=== PATIENT | female | born 1955 | race Caucasian/White ===

== ENCOUNTER → 2022-03-18 14:27 | Outpatient (BNVA) | payer MEDICARE, OTHER, SELFPAY | PROVIDERS: PCP Internal Medicine; Visit Provider Urology | DX: R31.29 Other microscopic hematuria (principal) | CPT/HCPCS: 99202 ==

== ENCOUNTER 2022-04-24 14:15 | Outpatient (REF) | payer MEDICARE, OTHER, SELFPAY ==
--- NOTE | ~2022-04-24 | US_ITS ---
EXAMINATION: US RETROPERITONEAL LIMITED (RENAL ONLY) CLINICAL INFORMATION: Other microscopic hematuria. COMPARISON: None TECHNIQUE: Real-time imaging of the kidneys. FINDINGS: RIGHT KIDNEY: 11.6 x 5.0 x 6.3 cm (SAG x AP x TRV). The kidney is normal in size, contour, and echogenicity. Renal cortical thickness is normal. No hydronephrosis. Benign-appearing renal cysts measuring up to 1.9 cm, no imaging follow-up recommended. 4 mm nonobstructing lower pole renal stone and 5 mm nonobstructing mid pole renal stone. LEFT KIDNEY: 11.6 x 6.6 x 6.8 cm (SAG x AP x TRV). The kidney is normal in size, contour, and echogenicity. Renal cortical thickness is normal. No hydronephrosis. Benign-appearing renal cysts measuring up to 4.5 cm, no imaging follow-up recommended. 3 mm obstructing lower pole renal stone. US/US renal BI IMPRESSION: Bilateral nonobstructive renal stones measuring up to 5 mm on the right and measuring 3 mm on the left.
== END 2022-04-24 14:16 | disposition home or self-care (01) ==
LOC: HO.US 14:15
PROVIDERS: Visit Provider Urology
DX: R31.29 Other microscopic hematuria (principal)
CPT/HCPCS: 76775

== ENCOUNTER → 2022-05-01 10:35 | Outpatient (BNVA) | payer MEDICARE, OTHER, SELFPAY | PROVIDERS: PCP Internal Medicine; Visit Provider Urology | DX: N20.0 Calculus of kidney (principal); R31.29 Other microscopic hematuria | CPT/HCPCS: Q3014 ==

== ENCOUNTER 2023-04-07 14:15 | Outpatient (REF) | payer MEDICARE, OTHER, SELFPAY ==
--- NOTE | ~2023-04-07 | US_ITS ---
EXAMINATION: US RETROPERITONEAL LIMITED (RENAL ONLY) CLINICAL INFORMATION: Calculus of kidney. COMPARISON: Renal ultrasound 04/24/2022. TECHNIQUE: Real-time imaging of the kidneys. FINDINGS: RIGHT KIDNEY: 11.6 x 4.4 x 5.2 cm (SAG x AP x TRV). The kidney is normal in size, contour, and echogenicity. Renal cortical thickness is normal. Multiple benign Bosniak class I renal cysts are noted, the largest measuring 1.9 cm which require no additional imaging or followup. No solid renal masses are seen. There is a midpole 6 mm nonobstructing calculus present. There is mild pelvic fullness but no hydronephrosis. LEFT KIDNEY: 10.3 x 5.3 x 5.9 cm (SAG x AP x TRV). The kidney is normal in size, contour, and echogenicity. Renal cortical thickness is normal. No hydronephrosis. Multiple benign Bosniak class I renal cysts are noted, the largest measuring 4.0 cm which require no additional imaging or followup. No solid renal masses are seen. Incidental note made of hepatic steatosis. US/US renal BI IMPRESSION: 1. Nonobstructing 6 mm right renal calculus. 2. Bilateral benign Bosniak class I renal cysts which require no additional imaging or followup. 3. Incidentally noted hepatic steatosis.
== END 2023-04-07 14:16 | disposition home or self-care (01) ==
LOC: HO.US 14:15
PROVIDERS: PCP Internal Medicine; Visit Provider Urology
DX: N20.0 Calculus of kidney (principal)
CPT/HCPCS: 76775

== ENCOUNTER 2024-02-17 15:33 | Outpatient (AMB) | payer MEDICARE, OTHER, SELFPAY ==
--- NOTE | 2024-02-17 15:34 | A.OFFPC_ITS ---
Vital Signs 02/17/24 15:53 Height 5 ft 3 in Weight 188 lb BMI 33.3 BP 116/62 Blood Pressure Location Lt brachial Position Left Lateral Respiration 16 Pulse 59 Pulse Source Pulse Oximeter Temp 98.1 F Temp Source Oral Pulse Oximetry (%) 96 Oxygen Delivery Method Room Air Intake Visit Reasons: EST CARE Intake Note: New patient visit Allergies penicillin G Allergy (Severe, Verified 02/17/24 15:42) shock tizanidine Allergy (Mild, Verified 02/17/24 15:42) unknown amoxicillin [From Augmentin] Allergy (Unknown, Verified 02/17/24 15:42) Unknown ciprofloxacin Allergy (Unknown, Verified 02/17/24 15:42) Unknown clarithromycin [From Biaxin] Allergy (Unknown, Verified 02/17/24 15:42) Unknown clavulanic acid [From Augmentin] Allergy (Unknown, Verified 02/17/24 15:42) Unknown erythromycin base Allergy (Unknown, Verified 02/17/24 15:42) Unknown polyethylene glycol 3350 Allergy (Unknown, Verified 02/17/24 15:42) Unknown sulfadiazine Allergy (Unknown, Verified 02/17/24 15:42) Unknown tetracycline Allergy (Unknown, Verified 02/17/24 15:42) Unknown tramadol Allergy (Unknown, Verified 02/17/24 15:42) vomit venlafaxine [From Effexor] Allergy (Unknown, Verified 02/17/24 15:42) Unknown adhesive bandaid Allergy (Unknown, Uncoded 02/17/24 15:42) Unknown chapstick Allergy (Unknown, Uncoded 02/17/24 15:42) unknown tania Allergy (Unknown, Uncoded 02/17/24 15:42) Unknown Medication List - Last Reconciled 02/17/24 by Aditi Nguyen MD albuterol sulfate 90 mcg/actuation 2 puffs inhalation Q6H PRN cyclobenzaprine 5 - 10 mg PO BEDTIME PRN fluticasone propionate 50 mcg/actuation 2 sprays intranasal DAILY gabapentin 300 mg PO BID leflunomide 20 mg PO DAILY levothyroxine 25 mcg PO DAILY loratadine-pseudoephedrine 5-120 mg ER (Alavert D-12 Allergy-Sinus) 1 tab PO Q12H magnesium citrate,mag oxide mg PO metolazone 2.5 mg PO Q OTHER DAY oxycodone 5 mg PO Q6H PRN potassium chloride ER 20 meq three times a day orally daily; Tobacco use date assessed: 02/17/24 Fall risk assessment: No Falls in past year Last assessed Fall Risk: 02/17/24 Dental Screening Dental Screen Date: 02/17/24 Did you have a dental visit in the last 12 months?: No Did you have a dental problem in the last 6 months where you did not have access to dental care?: No Was dental information given to patient?: Patient has dentist HPI HPI Comments History of Present Illness Details The patient is a 69 year old female with a past medical history of chronic pain, DDD spine, RA, prediabetes/diabetes, depression/grief, hypertension, [facility] Chronic pain: Maintained on chronic opioid therapy. History of spinal surgery. Follows rheumatology CV: On metolozane, propranolol. Intolerant of multiple medications Hypothyroid-on levothyroxine Non compliant with preventive care [facility] Medical History (Updated 02/25/24 @ 09:22 by Aditi Nguyen MD) Anxiety High cholesterol OA (osteoarthritis) Mucoepidermoid carcinoma Depression Thyroid nodule Diabetes mellitus Rheumatoid arthritis Gout Arthritis Allergies Family History (Updated 02/17/24 @ 16:00 by Anastasiya Francisco CMA) Mother HTN (hypertension) Social History (Updated 02/17/24 @ 15:52 by Anastasiya Francisco CMA) Patient Tobacco Use Status: Former Tobacco user Cigarette Packs Per Day: 1 Years Smoked: 25 e-Cigarette/Vaping Use: Never Used Second Hand Smoke Exposure: No service: Yes Current occupational status: retired Cognitive needs: No Hearing needs: No Vision needs: No Questionnaire PHQ-9 Over the last 2 weeks, how often have you been bothered by any of the following problems? 1. Little interest or pleasure in doing things: several days 2. Feeling down, depressed, or hopeless: nearly every day 3. Trouble falling or staying asleep, or sleeping too much: more than half the days 4. Feeling tired or having little energy: several days 5. Poor appetite or overeating: several days 6. Feeling bad about yourself - or that you are a failure or have let yourself or your family down: not at all 7. Trouble concentrating on things, such as reading the newspaper or watching television: not at all 8. Moving or speaking so slowly that other people could have noticed. Or the opposite - being so fidgety or restless that you have been moving around a lot more than usual: not at all 9. Thoughts that you would be better off or of hurting yourself in some way: not at all Total score: 8 Depression Screening Interpretation: Positive Depression Screening Done: Yes [id number] - PHQ-9 Billing: Yes Source: Developed by Drs. Min De La Rosa, Sharlene Burris, Mau Morales and colleagues, with an educational cl from [employer]. Thrive Questionnaire Date Thrive assessed: 02/17/24 I am a: Patient What is your living situation today?: I have a steady place to live Within the past 12 months, did the food you bought not last and you didn't have the money to get more?: Never true Within the past 12 months, did you worry whether your food would run out before you got money to buy more?: Never true Do you have trouble paying for medicines?: No Do you have trouble getting transportation to medical appointments?: No Do you have trouble paying your heating and electricity bill?: No Do you have trouble taking care of your child, family member or friend?: No Do you have trouble with day-to-day activities such as bathing, preparing meals, shopping, managing finances, etc.?: No Are you currently unemployed and looking for a job?: No Are you interested in more education?: No Please select the resources that you would like help with: None Currently or been in a relationship where the following occur: no concerns reported THRIVE Score: 0 AUDIT C Alcohol Use Questionnaire (AUDIT-C) 1. How often do you have a drink containing alcohol?: Monthly or less 2. How many drinks containing alcohol do you have on a typical day when you are drinking?: 3 or 4 3. How often do you have six or more drinks on one occasion?: Less than monthly Total Score: 3 TIMO-7 AMB Questionnaire TIMO-7 Date TIMO - 7 assessed: 02/17/24 Feeling nervous, anxious, or on edge: 0 = Not at all Not being able to stop or control worryin = Several days Worrying too much about different things: 1 = Several days Trouble relaxin = Several days Being so restless that it is hard to sit still: 2 = More than half the days Becoming easily annoyed or irritable: 0 = Not at all Feeling afraid as if something awful might happen: 0 = Not at all Total TIMO-7 score (0-4 normal; 5-9 mild; 10-14 moderate; 15-21 severe): 5 Source: Developed by Drs. Min De La Rosa, Sharlene Burris, Mau Morales and colleagues, with an educational cl from [employer]. TIMO-7 Assessment Billing TIMO-7 Assessment Tool: TIMO-7 Assessment 06758 ACT Questionnaire In the past 4 weeks, how much of the time did your asthma keep you from getting as much done at work, school or at home?: None of the time During the past 4 weeks, how often have you had shortness of breath?: 1-2 times a week (Once in the last 4 weeks) During the past 4 weeks, how often did your asthma symptoms wake you up at night or earlier than usual in the morning?: Not at all During the past 4 weeks, how often have you had to use your rescue inhaler or nebulizer medication?: 1-2 times a week How would you rate your asthma control during the past 4 weeks?: Completely controlled ACT Interpretation: Positive Score: 21 Review of Systems Const Details: ROS CONSTITUTIONAL: Denies weight loss, fever and chills. HEENT: Sinus congestion RESPIRATORY: Denies SOB and cough. CV: Denies palpitations and CP GI: Denies abdominal pain, nausea, vomiting and diarrhea. : Denies dysuria and urinary frequency. MSK: Denies new myalgia and joint pain. SKIN: Denies rash and pruritus. NEUROLOGICAL: Denies headache PSYCHIATRIC: Denies recent changes in mood. Physical exam (Primary Care) Vital Signs: Last Vital Signs Temp 98.1 F 02/17/24 15:53 Pulse 59 02/17/24 15:53 Resp 16 02/17/24 15:53 BP 116/62 02/17/24 15:53 Pulse Ox 96 02/17/24 15:53 Oxygen Delivery Method Room Air 02/17/24 15:53 PHYSICAL EXAM: GENERAL: Alert and oriented x 3. NAD EYES: EOMI. Anicteric. HENT: Moist mucous membranes. No scleral icterus. No cervical lymphadenopathy. LUNGS: Clear to auscultation bilaterally. CARDIOVASCULAR: Regular rate and rhythm. No murmur. No JVD. ABDOMEN: Soft, non-tender +bs EXTREMITIES: No edema. Non-tender. SKIN: No rashes or lesions. Warm. NEUROLOGIC: No focal neurological deficits. CN II-XII grossly intact PSYCHIATRIC: Cooperative. Appropriate mood and affect BMI result Body Mass Index 33.3 Tobacco/Smoking Status: Tobacco use Status Tobacco use date assessed 02/17/24 02/17/24 16:01 Patient Tobacco Use Status Former Tobacco user 02/17/24 16:01 e-Cigarette/Vaping Use Never Used 02/17/24 16:01 PHQ-9: PHQ-9 Score PHQ-9: Total score 8 02/17/24 16:03 Depression Screening Interpretation: Positive Thrive Assessment: Date of Thrive Assessment Date Thrive assessed 02/17/24 02/17/24 16:03 Currently or been in a relationship where the following occur: no concerns reported Assessment and Plan Assessment & Plan (1) Arthritis: Comment: continue chronic opioid therapy. continue f/up rheumatology Code(s): M19.90 - Unspecified osteoarthritis, unspecified site (2) Rheumatoid arthritis: Code(s): M06.9 - Rheumatoid arthritis, unspecified Qualifiers: Rheumatoid arthritis location: multiple sites Rheumatoid factor presence: with rheumatoid factor Qualified Code(s): M05.79 - Rheumatoid arthritis with rheumatoid factor of multiple sites without organ or systems involvement (3) Diabetes mellitus: Code(s): E11.9 - Type 2 diabetes mellitus without complications Qualifiers: Diabetes mellitus type: type 2 Diabetes mellitus fci insulin use: without supervisor intermediates use Diabetes mellitus complication status: with neurologic complications Diabetes mellitus complication detail: with polyneuropathy Qualified Code(s): E11.42 - Type 2 diabetes mellitus with diabetic polyneuropathy (4) Thyroid nodule: Code(s): E04.1 - Nontoxic single thyroid nodule (5) Depression: Code(s): F32.A - Depression, unspecified (6) OA (osteoarthritis): Code(s): M19.90 - Unspecified osteoarthritis, unspecified site (7) High cholesterol: Code(s): E78.00 - Pure hypercholesterolemia, unspecified (8) Anxiety: Code(s): F41.9 - Anxiety disorder, unspecified (9) Nephrolithiasis: Code(s): N20.0 - Calculus of kidney Medications: New cyclobenzaprine 5 - 10 mg PO BEDTIME PRN albuterol sulfate 90 mcg/actuation 2 puffs inhalation Q6H PRN fluticasone propionate 50 mcg/actuation 2 sprays intranasal DAILY mupirocin 2% 1 appl topical BID 22 grams 3RF oxycodone Partial Fill upon patient request. 10 mg PO Q4H PRN 168 tabs 0RF pain 28 days Coding Level of Care Code Est Pt Level 4 (37267) Complex EM visit Add On G2211 Diagnoses Arthritis M19.90 Rheumatoid arthritis involving multiple sites with positive rheumatoid factor M05.79 Rheumatoid arthritis location: multiple sites Rheumatoid factor presence: with rheumatoid factor Type 2 diabetes mellitus with diabetic polyneuropathy, without long-term current use of insulin E11.42 Diabetes mellitus type: type 2 Diabetes mellitus fci insulin use: without supervisor intermediates use Diabetes mellitus complication status: with neurologic complications Diabetes mellitus complication detail: with polyneuropathy Thyroid nodule E04.1 Depression F32.A OA (osteoarthritis) M19.90 High cholesterol E78.00 Anxiety F41.9 Nephrolithiasis N20.0 Additional Codes TIMO-7 Assessment Billing - TIMO-7 Assessment Tool: TIMO-7 Assessment 17464 ([id number])
[2024-02-17 15:53] VITALS: BP 116/62; PULSE 59; RESP 16; TEMP 36.7; O2SAT 96; BMI 33.3
== END 2024-02-17 16:25 | disposition home or self-care (01) ==
LOC: HO.HMGFM 15:33
PROVIDERS: PCP Internal Medicine; Visit Provider Internal Medicine
DX: M19.90 Unspecified osteoarthritis, unspecified site (principal); M05.79 Rheumatoid arthritis with rheumatoid factor of multiple sites without organ or systems involvement; E11.42 Type 2 diabetes mellitus with diabetic polyneuropathy; E04.1 Nontoxic single thyroid nodule; F32.A Depression, unspecified; E78.00 Pure hypercholesterolemia, unspecified; F41.9 Anxiety disorder, unspecified; N20.0 Calculus of kidney
CPT/HCPCS: 99214; G2211

== ENCOUNTER 2024-05-03 15:34 | Outpatient (AMB) | payer MEDICARE, OTHER, SELFPAY ==
--- NOTE | 2024-05-03 15:42 | A.OFFPC_ITS ---
Vital Signs 05/03/24 15:44 Height 5 ft 3 in Weight 184 lb BMI 32.6 BP 133/74 Blood Pressure Location Lt brachial Position Sitting Pulse 84 Pulse Source Pulse Oximeter Temp 98.4 F Temp Source Temporal Artery Scan Pulse Oximetry (%) 94 Oxygen Delivery Method Room Air Intake Visit Reasons: SwellingNeck Intake Note: Patient reports the right side of her neck feels swollen on thursday morning. Patient reports feeling pain to the touch. Academic Physician Required: No Accompanied by: Self / Same As Patient Allergies penicillin G Allergy (Severe, Verified 05/03/24 15:47) shock tizanidine Allergy (Mild, Verified 05/03/24 15:47) unknown amoxicillin [From Augmentin] Allergy (Unknown, Verified 05/03/24 15:47) Unknown ciprofloxacin Allergy (Unknown, Verified 05/03/24 15:47) Unknown clarithromycin [From Biaxin] Allergy (Unknown, Verified 05/03/24 15:47) Unknown clavulanic acid [From Augmentin] Allergy (Unknown, Verified 05/03/24 15:47) Unknown erythromycin base Allergy (Unknown, Verified 05/03/24 15:47) Unknown polyethylene glycol 3350 Allergy (Unknown, Verified 05/03/24 15:47) Unknown sulfadiazine Allergy (Unknown, Verified 05/03/24 15:47) Unknown tetracycline Allergy (Unknown, Verified 05/03/24 15:47) Unknown tramadol Allergy (Unknown, Verified 05/03/24 15:47) vomit venlafaxine [From Effexor] Allergy (Unknown, Verified 05/03/24 15:47) Unknown adhesive bandaid Allergy (Unknown, Uncoded 05/03/24 15:47) Unknown chapstick Allergy (Unknown, Uncoded 05/03/24 15:47) unknown tania Allergy (Unknown, Uncoded 05/03/24 15:47) Unknown Tobacco use date assessed: 02/17/24 Dental Screening Dental Screen Date: 02/17/24 HPI HPI Comments History of Present Illness Details The patient is a 69 year old female with a past medical history of chronic pain, DDD spine, RA, prediabetes/diabetes, depression/grief, hypertensi on, hypothyroid presenting for neck swelling Over the past 2-3 week she has noticed enlargement and discomfort of the lymph nodes in her neck, particularly in the right upper neck. She had issues in the past with abnormality of the parotid. She denies accompanying sick symptoms. Fatigue is somewhat worse than baseline Chronic pain: Maintained on chronic opioid therapy. History of spinal surgery. Follows rheumatology CV: On metolozane, propranolol. Intolerant of multiple medications Hypothyroid-on levothyroxine Non compliant with preventive care ROS see HPI PHYSICAL EXAM: GENERAL: Alert and oriented x 3. NAD EYES: EOMI. Anicteric. HENT: Moist mucous membranes. Enlarged tender ant cervical, submand nodes LUNGS: Clear to auscultation bilaterally. CARDIOVASCULAR: Regular rate and rhythm. No murmur. No JVD. ABDOMEN: Soft, non-tender +bs EXTREMITIES: No edema. Non-tender. SKIN: No rashes or lesions. Warm. NEUROLOGIC: No focal neurological deficits. CN II-XII grossly intact PSYCHIATRIC: Cooperative. Appropriate mood and affect [facility] Medical History (Updated 05/08/24 @ 10:29 by Aditi Nguyen MD) Anxiety High cholesterol OA (osteoarthritis) Mucoepidermoid carcinoma Depression Thyroid nodule Diabetes mellitus Rheumatoid arthritis Gout Arthritis Allergies Family History (Updated 02/17/24 @ 16:00 by Anastasiya Francisco CMA) Mother HTN (hypertension) Social History (Updated 02/17/24 @ 15:52 by Anastasiya Francisco CMA) Patient Tobacco Use Status: Former Tobacco user Cigarette Packs Per Day: 1 Years Smoked: 25 e-Cigarette/Vaping Use: Never Used Second Hand Smoke Exposure: No service: Yes Current occupational status: retired Cognitive needs: No Hearing needs: No Vision needs: No Questionnaire Thrive Questionnaire Date Thrive assessed: 02/17/24 TIMO-7 AMB Questionnaire TIMO-7 Date TIMO - 7 assessed: 02/17/24 Source: Developed by Drs. Min De La Rosa, Sharlene Burris, Mau Morales and colleagues, with an educational cl from [employer]. Physical exam (Primary Care) Vital Signs: Last Vital Signs Temp 98.4 F 05/03/24 15:44 Pulse 84 05/03/24 15:44 BP 133/74 05/03/24 15:44 Pulse Ox 94 05/03/24 15:44 Oxygen Delivery Method Room Air 05/03/24 15:44 BMI result Body Mass Index 32.6 Tobacco/Smoking Status: Tobacco use Status Tobacco use date assessed 02/17/24 05/03/24 15:43 Patient Tobacco Use Status Former Tobacco user 05/03/24 15:43 e-Cigarette/Vaping Use Never Used 05/03/24 15:43 Thrive Assessment: Date of Thrive Assessment Date Thrive assessed 02/17/24 05/03/24 15:43 Assessment and Plan Assessment & Plan (1) Enlarged lymph node: Code(s): R59.9 - Enlarged lymph nodes, unspecified Plan: Labs and ultrassound ordered (2) Fatigue: Code(s): R53.83 - Other fatigue Qualifiers: Fatigue type: unspecified Qualified Code(s): R53.83 - Other fatigue Orders: Orders Comprehensive Met. Panel 05/03/24 R53.83 - Other fatigue, R59.9 - Enlarged lymph nodes, unspecified Monotest 05/03/24 R53.83 - Other fatigue, R59.9 - Enlarged lymph nodes, unspecified Lyme IgG/IgM w/reflex to WB 05/03/24 R53.83 - Other fatigue, R59.9 - Enlarged lymph nodes, unspecified US soft tiss head and/or neck 05/03/24 R53.83 - Other fatigue, R59.9 - Enlarged lymph nodes, unspecified Complete Blood Count Auto Diff 05/03/24 R53.83 - Other fatigue, R59.9 - Enlarged lymph nodes, unspecified Coding Level of Care Code Est Pt Level 4 (94453) Complex EM visit Add On G2211 Diagnoses Enlarged lymph node R59.9 Fatigue, unspecified type R53.83 Fatigue type: unspecified
[2024-05-03 15:44] VITALS: BP 133/74; PULSE 84; TEMP 36.9; O2SAT 94; BMI 32.6
== END 2024-05-03 16:03 | disposition home or self-care (01) ==
PROVIDERS: PCP Internal Medicine; Visit Provider Internal Medicine
DX: R59.9 Enlarged lymph nodes, unspecified (principal); R53.83 Other fatigue
CPT/HCPCS: 99214; G2211

== ENCOUNTER 2024-07-05 09:52 | Outpatient (AMB) | payer MEDICARE, OTHER, SELFPAY ==
--- NOTE | 2024-07-05 09:57 | A.OFFPC_ITS ---
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 Allergies penicillin G Allergy (Severe, Verified 07/05/24 10:11) shock tizanidine Allergy (Mild, Verified 07/05/24 10:11) unknown amoxicillin [From Augmentin] Allergy (Unknown, Verified 07/05/24 10:11) Unknown ciprofloxacin Allergy (Unknown, Verified 07/05/24 10:11) Unknown clarithromycin [From Biaxin] Allergy (Unknown, Verified 07/05/24 10:11) Unknown clavulanic acid [From Augmentin] Allergy (Unknown, Verified 07/05/24 10:11) Unknown erythromycin base Allergy (Unknown, Verified 07/05/24 10:11) Unknown polyethylene glycol 3350 Allergy (Unknown, Verified 07/05/24 10:11) Unknown sulfadiazine Allergy (Unknown, Verified 07/05/24 10:11) Unknown tetracycline Allergy (Unknown, Verified 07/05/24 10:11) Unknown tramadol Allergy (Unknown, Verified 07/05/24 10:11) vomit venlafaxine [From Effexor] Allergy (Unknown, Verified 07/05/24 10:11) Unknown adhesive bandaid Allergy (Unknown, Uncoded 07/05/24 10:11) Unknown chapstick Allergy (Unknown, Uncoded 07/05/24 10:11) unknown tania Allergy (Unknown, Uncoded 07/05/24 10:11) Unknown Medication List - Last Reconciled 07/05/24 by Aditi Nguyen MD albuterol sulfate 90 mcg/actuation 2 puffs inhalation Q6H PRN amitriptyline 25 mg PO BEDTIME aspirin (Adult Aspirin Regimen) 81 mg PO DAILY atenolol 25 mg PO DAILY cyclobenzaprine 5 - 10 mg PO BEDTIME PRN diltiazem HCl ER 240 mg PO DAILY duloxetine 60 mg PO DAILY fluticasone furoate-vilanterol 100-25 mcg/dose (Breo Ellipta) 1 ea inhalation DAILY fluticasone furoate-vilanterol 100-25 mcg/dose (Breo Ellipta) 1 inh inhalation DAILY 90 days fluticasone propionate 50 mcg/actuation 2 sprays intranasal DAILY gabapentin 300 mg PO BID leflunomide 20 mg PO DAILY levothyroxine 25 mcg PO DAILY loratadine-pseudoephedrine 5-120 mg ER (Alavert D-12 Allergy-Sinus) 1 tab PO Q12H magnesium citrate,mag oxide mg PO mupirocin calcium 2% 1 appl topical BID omeprazole 40 mg PO DAILY oxycodone 10 mg PO Q4H PRN 28 days tiotropium bromide 1.25 mcg/actuation (Spiriva Respimat) 2 puffs inhalation DAILY Tobacco use date assessed: 02/17/24 Fall risk assessment: 1 Fall in past year Last assessed Fall Risk: 07/05/24 Dental Screening Dental Screen Date: 02/17/24 HPI HPI Comments History of Present Illness Details The patient is a 69 year old female with a past medical history of chronic pain, DDD spine, RA, prediabetes/diabetes, depression/grief, hypertension, hypothyroid presenting for follow up Patient was hospitalized from 06/30-07/02/2024. Presented with confusion/lethargy. Wad found to have PEYMAN, possible UTI, COPD exacerbation, possible pna. She was hypoxic. She required supplemental oxygen during admission. Almost sent home with 2L at rest and 6L on ambulation but ended up cleared by RT her last day. Lethargy improved with 02 and fluids. She had CT chest with emphysematous changes. She was started on Breo & Spiriva, also on prednisone during admission. Right fissural nodule on CT with recommendation for 3 month f/up, PET, or biopsy. Referred to pulmonary today. Incidental left adrenal adenoma 0.6cm with recommendation for follow up. She was recommended to decrease metolazone to 2.5 MWF, continue potassium, nadolol restarted, continue diltiazem. Cr at discharge 1.3. Over the summer had noticed enlargement and discomfort of the lymph nodes in her neck, particularly in the right upper neck. She had issues in the past with abnormality of the parotid. She had u/s of the neck with a few mildly prominent morphologically normal and not pathologically enlarged lymph nodes the right neck at level once. Blood work was fairly reassuring. Chronic pain: Maintained on chronic opioid therapy. History of spinal surgery. Follows rheumatology. MRI right shoulder-nondiagnostic exam due to severe metal artifiact relating to right shoulder relpacement hardware. Severe atrophy of rotator cuff musculature. CT later in the month ?bursitis in right glenoid, superinfection cannot be ruled out . CV: On metolozane, nadolol, diltiazem. Intolerant of multiple medications in the past and was hesitant to change but now is considering in the setting of recent PEYMAN, dehydration. She notes previously difficult to manage blood pressure. Blood pressure readings have been 115-160 systolic. Highest in am before meds. Hypothyroid-on levothyroxine Non compliant with preventive care ROS see HPI PHYSICAL EXAM: GENERAL: Alert and oriented x 3. NAD EYES: EOMI. Anicteric. HENT: Moist mucous membranes. Enlarged tender ant cervical, submand nodes LUNGS: Clear to auscultation bilaterally. CARDIOVASCULAR: Regular rate and rhythm. No murmur. No JVD. ABDOMEN: Soft, non-tender +bs EXTREMITIES: No edema. Non-tender. SKIN: No rashes or lesions. Warm. NEUROLOGIC: No focal neurological deficits. CN II-XII grossly intact PSYCHIATRIC: Cooperative. Appropriate mood and affect [facility] Medical History (Updated 07/05/24 @ 13:13 by Aditi Nguyen MD) Anxiety High cholesterol OA (osteoarthritis) Mucoepidermoid carcinoma Depression Thyroid nodule Diabetes mellitus Rheumatoid arthritis Gout Arthritis Allergies Family History (Updated 02/17/24 @ 16:00 by Anastasiya Francisco CMA) Mother HTN (hypertension) Social History (Updated 02/17/24 @ 15:52 by Anastasiya Francisco CMA) Housing: House Patient Tobacco Use Status: Former Tobacco user Cigarette Packs Per Day: 1 Years Smoked: 25 e-Cigarette/Vaping Use: Never Used Second Hand Smoke Exposure: No service: Yes Current occupational status: retired Cognitive needs: No Hearing needs: No Vision needs: No Questionnaire PHQ-9 Over the last 2 weeks, how often have you been bothered by any of the following problems? 62862 - PHQ-9 Billing: Patient declined-do not bill Source: Developed by Drs. Min De La Rosa, Sharlene Burris, Mau Morales and colleagues, with an educational cl from [employer]. Thrive Questionnaire Date Thrive assessed: 07/05/24 I am a: Patient What is your living situation today?: I have a steady place to live Within the past 12 months, did the food you bought not last and you didn't have the money to get more?: Never true Within the past 12 months, did you worry whether your food would run out before you got money to buy more?: Never true Do you have trouble paying for medicines?: No Do you have trouble getting transportation to medical appointments?: No Do you have trouble paying your heating and electricity bill?: No Do you have trouble taking care of your child, family member or friend?: No Do you have trouble with day-to-day activities such as bathing, preparing meals, shopping, managing finances, etc.?: No Are you currently unemployed and looking for a job?: No Are you interested in more education?: No Please select the resources that you would like help with: None Currently or been in a relationship where the following occur: I choose not to answer THRIVE Score: 0 AUDIT C Alcohol Use Questionnaire (AUDIT-C) 1. How often do you have a drink containing alcohol?: Monthly or less 2. How many drinks containing alcohol do you have on a typical day when you are drinking?: 1 or 2 3. How often do you have six or more drinks on one occasion?: Never Total Score: 1 TIMO-7 AMB Questionnaire TIMO-7 Date TIMO - 7 assessed: 07/05/24 Feeling nervous, anxious, or on edge: 0 = Not at all Not being able to stop or control worryin = Not at all Worrying too much about different things: 0 = Not at all Trouble relaxin = Not at all Being so restless that it is hard to sit still: 0 = Not at all Becoming easily annoyed or irritable: 0 = Not at all Feeling afraid as if something awful might happen: 0 = Not at all Total TIMO-7 score (0-4 normal; 5-9 mild; 10-14 moderate; 15-21 severe): 0 Source: Developed by Drs. Min De La Rosa, Sharlene Burris, Mau Morales and colleagues, with an educational cl from [employer] TIMO-7 Assessment Billing TIMO-7 Assessment Tool: TIMO-7 Assessment 74882 Physical exam (Primary Care) Vital Signs: Last Vital Signs Pulse 68 07/05/24 09:58 Resp 14 07/05/24 09:58 BP 138/70 07/05/24 09:58 Pulse Ox 94 07/05/24 09:58 Oxygen Delivery Method Room Air 07/05/24 09:58 BMI result Body Mass Index 33.1 Tobacco/Smoking Status: Tobacco use Status Tobacco use date assessed 02/17/24 07/05/24 09:58 Patient Tobacco Use Status Former Tobacco user 07/05/24 09:58 e-Cigarette/Vaping Use Never Used 07/05/24 09:58 Thrive Assessment: Date of Thrive Assessment Date Thrive assessed 07/05/24 07/05/24 09:58 Currently or been in a relationship where the following occur: I choose not to answer Assessment and Plan Assessment & Plan (1) Hospital discharge follow-up: Code(s): Z09 - Encounter for follow-up examination after completed treatment for conditions other than malignant neoplasm Plan: Hospital course reviewed, labs, imaging reviewed, medications reconciled Stop metolazone, nadolol, K. Start atenolol. continue diltiazem Lung nodule-repeat CT Continue cervical LN-add CT neck Adrenal nodule-CT adrenal Kidney cysts-had renal u/s (2) COPD (chronic obstructive pulmonary disease): Code(s): J44.9 - Chronic obstructive pulmonary disease, unspecified Qualifiers: COPD type: emphysema Emphysema type: centrilobular Qualified Code(s): J43.2 - Centrilobular emphysema Plan: Inhalers ordered. Referral to pulmonary (3) Rheumatoid arthritis: Code(s): M06.9 - Rheumatoid arthritis, unspecified Qualifiers: Rheumatoid arthritis location: multiple sites Rheumatoid factor presence: with rheumatoid factor Qualified Code(s): M05.79 - Rheumatoid arthritis with rheumatoid factor of multiple sites without organ or systems involvement Plan: continue follow up rheumatology (4) Diabetes mellitus: Code(s): E11.9 - Type 2 diabetes mellitus without complications Qualifiers: Diabetes mellitus type: type 2 Diabetes mellitus [facility] insulin use: without [facility] use Diabetes mellitus complication status: with neurologic complications Diabetes mellitus complication detail: with polyneuropathy Qualified Code(s): E11.42 - Type 2 diabetes mellitus with diabetic polyneuropathy Plan: Low carbohydrate diet. Monitor A1C. Refuses therapy (5) Depression: Code(s): F32.A - Depression, unspecified Qualifiers: Depression Type: major depressive disorder Major depression recurrence: recurrent Active/Remission status: in partial remission Qualified Code(s): F33.41 - Major depressive disorder, recurrent, in partial remission Plan: stable on medications. Continues gabapentin, elavil Orders: Orders TSH reflex Free T4 Today E04.1 - Nontoxic single thyroid nodule CT chest wo IV con Today R91.1 - Solitary pulmonary nodule CT soft tissue neck w IV con Today C80.1 - Malignant (primary) neoplasm, unspecified, R59.9 - Enlarged lymph nodes, unspecified Basic Metabolic Panel Today E11.42 - Type 2 diabetes mellitus with diabetic polyneuropathy CT adrenal wo/w IV con Today D35.00 - Benign neoplasm of unspecified adrenal gland, R59.0 - Localized enlarged lymph nodes, R59.9 - Enlarged lymph nodes, unspecified, R91.1 - Solitary pulmonary nodule Referrals Pulmonology Referral J44.9 - Chronic obstructive pulmonary disease, unspecified Medications: New fluticasone furoate-vilanterol 100-25 mcg/dose (Breo Ellipta) 1 inh inhalation DAILY 90 days 90 ea 3RF atenolol 25 mg PO DAILY 90 tabs 3RF Coding Level of Care Code TCM High MDM <= 7 Days Diagnoses Hospital discharge follow-up Z09 Centrilobular emphysema J43.2 COPD type: emphysema Emphysema type: centrilobular Rheumatoid arthritis involving multiple sites with positive rheumatoid factor M05.79 Rheumatoid arthritis location: multiple sites Rheumatoid factor presence: with rheumatoid factor Type 2 diabetes mellitus with diabetic polyneuropathy, without long-term current use of insulin E11.42 Diabetes mellitus type: type 2 Diabetes mellitus ferry terminal supervisor insulin use: without [facility] use Diabetes mellitus complication status: with neurologic complications Diabetes mellitus complication detail: with polyneuropathy Recurrent major depressive disorder, in partial remission F33.41 Depression Type: major depressive disorder Major depression recurrence: recurrent Active/Remission status: in partial remission Additional Codes TIMO-7 Assessment Billing - TIMO-7 Assessment Tool: TIMO-7 Assessment 90051 ([id number])
[2024-07-05 09:58] VITALS: BP 138/70; PULSE 68; RESP 14; O2SAT 94; BMI 33.1
== END 2024-07-05 11:01 | disposition home or self-care (01) ==
PROVIDERS: PCP Internal Medicine; Visit Provider Internal Medicine
DX: Z09 Encounter for follow-up examination after completed treatment for conditions other than malignant neoplasm (principal); J43.2 Centrilobular emphysema; M05.79 Rheumatoid arthritis with rheumatoid factor of multiple sites without organ or systems involvement; E11.42 Type 2 diabetes mellitus with diabetic polyneuropathy; F33.41 Major depressive disorder, recurrent, in partial remission

== ENCOUNTER → 2024-07-05 09:52 | Outpatient (BNVA) | payer MEDICARE, OTHER, SELFPAY | PROVIDERS: PCP Internal Medicine; Visit Provider Internal Medicine | DX: Z09 Encounter for follow-up examination after completed treatment for conditions other than malignant neoplasm (principal); J43.2 Centrilobular emphysema; M05.79 Rheumatoid arthritis with rheumatoid factor of multiple sites without organ or systems involvement; E11.42 Type 2 diabetes mellitus with diabetic polyneuropathy; F33.41 Major depressive disorder, recurrent, in partial remission; E04.1 Nontoxic single thyroid nodule; R91.1 Solitary pulmonary nodule; C80.1 Malignant (primary) neoplasm, unspecified; R59.0 Localized enlarged lymph nodes | CPT/HCPCS: 96127; 99212 ==

== ENCOUNTER 2024-07-05 11:09 | Outpatient (REF) | payer MEDICARE, OTHER, SELFPAY ==
[2024-07-05 15:02] LABS: MANUAL DIFF FLAG NO
[2024-07-05 15:08] LABS: Basophils Absolute Auto 0.1 X10*3/uL (0.0-0.2); Basophils Percent Auto 0.8 % (0-2); Eosinophils Absolute Auto 0.1 X10*3/uL (0.0-0.4); Eosinophils Percent Auto 0.9 % (0-4); Hematocrit 48.6 % (37.0-47.0); Hemoglobin 15.3 g/dl (12.0-16.0); Imm Gran Abs Auto 0.05 X10*3/uL (0.00-0.03); Imm Gran Pct Auto 0.5 % (0.0-0.4); Lymphocytes Absolute Auto 1.5 X10*3/uL (1.2-4.9); Lymphocytes Percent Auto 14.5 % (20-40); Mean Corpuscular HGB Conc 31.5 g/dl (31.0-35.0); Mean Corpuscular Hemoglobin 27.7 pg (27.0-33.0); Mean Platelet Volume 10.9 fL (9.4-12.3); Monocytes Absolute Auto 0.6 X10*3/uL (0.1-1.2); Monocytes Percent Auto 5.5 % (2-11); Neutrophils Absolute Auto 8.1 x10*3/uL (2.0-8.3); Neutrophils Percent Auto 77.8 % (45-73); Platelet Count 296 X10*3/uL (160-400); Red Blood Count 5.52 X10*6/uL (4.20-5.50); Red Cell Distribution Width 15.3 % (11.0-16.0); White Blood Count 10.4 X10*3/uL (4.8-10.8)
[2024-07-05 15:25] LABS: Monotest Positive (Negative)
[2024-07-05 15:33] LABS: Alanine Aminotransferase 30 U/L (0-31); Alkaline Phosphatase 57 U/L (39-117); Anion Gap 12 (12-20); Aspartate Amino Transferase 27 U/L (5-31); Bilirubin Total 0.5 mg/dL (0.0-1.0); Blood Urea Nitrogen 31 mg/dL (9-16); Calcium 9.7 mg/dL (8.4-10.2); Carbon Dioxide 30 mmol/L (22-29); Chloride 104 mmol/L (96-108); Estimated Glomerular Filt Rate 46; Glucose Random 102 mg/dL (60-115); Potassium 4.4 mmol/L (3.3-5.1); Sodium 142 mmol/L (135-145); Total Protein 7.2 g/dL (6.5-8.0)
[2024-07-05 15:41] LABS: TSH reflex Free T4 0.88 uIU/mL (0.32-4.0)
[2024-07-07 07:02] LABS: Lyme Abs Screen <0.90 index
== END 2024-07-05 11:10 | disposition home or self-care (01) ==
LOC: HO.WFDLDS 11:09
PROVIDERS: Visit Provider Internal Medicine
DX: E04.1 Nontoxic single thyroid nodule (principal); R53.83 Other fatigue; D35.00 Benign neoplasm of unspecified adrenal gland; R59.9 Enlarged lymph nodes, unspecified; R91.1 Solitary pulmonary nodule; R59.0 Localized enlarged lymph nodes; C80.1 Malignant (primary) neoplasm, unspecified; E11.42 Type 2 diabetes mellitus with diabetic polyneuropathy
CPT/HCPCS: 36415; 80053; 84443; 85025; 86308; 86617; 86618

== ENCOUNTER 2024-07-19 11:03 | Outpatient (AMB) | payer MEDICARE, OTHER, SELFPAY ==
--- NOTE | 2024-07-19 11:14 | A.OFFPC_ITS ---
Vital Signs 07/19/24 11:26 Height 5 ft 3 in Weight 186 lb 6 oz BMI 33.0 BP 116/74 Blood Pressure Location Rt brachial Position Sitting Pulse 65 Pulse Source Pulse Oximeter Pulse Oximetry (%) 93 Oxygen Delivery Method Room Air Intake Visit Reasons: 2 Weeks f/u bp Intake Note: Two week follow up. Cdl Service Technician Required: No Allergies penicillin G Allergy (Severe, Verified 07/19/24 11:21) shock tizanidine Allergy (Mild, Verified 07/19/24 11:21) unknown amoxicillin [From Augmentin] Allergy (Unknown, Verified 07/19/24 11:21) Unknown ciprofloxacin Allergy (Unknown, Verified 07/19/24 11:21) Unknown clarithromycin [From Biaxin] Allergy (Unknown, Verified 07/19/24 11:21) Unknown clavulanic acid [From Augmentin] Allergy (Unknown, Verified 07/19/24 11:21) Unknown erythromycin base Allergy (Unknown, Verified 07/19/24 11:21) Unknown polyethylene glycol 3350 Allergy (Unknown, Verified 07/19/24 11:21) Unknown sulfadiazine Allergy (Unknown, Verified 07/19/24 11:21) Unknown tetracycline Allergy (Unknown, Verified 07/19/24 11:21) Unknown tramadol Allergy (Unknown, Verified 07/19/24 11:21) vomit venlafaxine [From Effexor] Allergy (Unknown, Verified 07/19/24 11:21) Unknown adhesive bandaid Allergy (Unknown, Uncoded 07/19/24 11:21) Unknown chapstick Allergy (Unknown, Uncoded 07/19/24 11:21) unknown tania Allergy (Unknown, Uncoded 07/19/24 11:21) Unknown Tobacco use date assessed: 02/17/24 Dental Screening Dental Screen Date: 02/17/24 HPI HPI Comments History of Present Illness Details The patient is a 69 year old female with a past medical history of chronic pain, DDD spine, RA, prediabetes/diabetes, depression/grief, hypertension, hypothyroid presenting for follow up 1.Patient was hospitalized from 06/30-06/19. Presented with confusion/lethargy. Wad found to have PEYMAN, possible UTI, COPD exacerbation, possible pna. She was hypoxic. She required supplemental oxygen during admission. Almost sent home with 2L at rest and 6L on ambulation but ended up cleared by RT her last day. Lethargy improved with 02 and fluids. She had CT chest with emphysematous changes. She was started on Breo & Spiriva, also on prednisone during admission. Right fissural nodule on CT with recommendation for 3 month f/up, PET, or biopsy. Referred to pulmonary today. Incidental left a drenal adenoma 0.6cm with recommendation for follow up. She was recommended to decrease metolazone to 2.5 MWF, continue potassium, nadolol restarted, continue diltiazem. Cr at discharge 1.3. 2.Over the summer had noticed enlargemen t and discomfort of the lymph nodes in her neck, particularly in the right upper neck. She had issues in the past with abnormality of the parotid. She had u/s of the neck with a few mildly prominent morphologically normal and not pathologically enlarged lymph nodes the right neck at level once. Blood work was fairly reassuring. -CT of the neck, chest and abdomen is pe nding scheduling. -She has consult with pulm scheduled for Aug 03. -At last visit we started atenolol and s topped nadolol, metolazone and potassium. She just received the atenolol from mail order so will make this change starting tomorrow -She continues to have home health. They are checking blood pressures -She tested positive for [place] at her las t visit though I suspect this was contracted over the summer Chronic pain: Maintained on chronic opioid therapy. History of spinal surgery. Follows rheumatology. MRI right shoulder-nondiagnostic exam due to severe metal artifiact relating to right shoulder relpacement hardware. Severe atrophy of rotator cuff musculature. CT later in the month ?bursitis in right glenoid, superinfection cannot be ruled out . CV: On metolozane, nadolol, diltiazem until tomorrow. Intolerant of multiple medications in the past and was hesitant to change but now is considering in the setting of recent PEYMAN, dehydration. She notes previously difficult to manage blood pressure. Blood pressure readings have been 115-160 systolic. Highest in am before meds. Hypothyroid-on levothyroxine Non compliant with preventive care ROS see HPI PHYSICAL EXAM: GENERAL: Alert and oriented x 3. NAD EYES: EOMI. Anicteric. HENT: Moist mucous membranes. Enlarged tender ant cervical, submand nodes LUNGS: Clear to auscultation bilaterally. CARDIOVASCULAR: Regular rate and rhythm. No murmur. No JVD. ABDOMEN: Soft, non-tender +bs EXTREMITIES: No edema. Non-tender. SKIN: No rashes or lesions. Warm. NEUROLOGIC: No focal neurological deficits. CN II-XII grossly intact PSYCHIATRIC: Cooperative. Appropriate mood and affect [facility] Medical History (Updated 07/19/24 @ 14:14 by Aditi Nguyen MD) Anxiety High cholesterol OA (osteoarthritis) Mucoepidermoid carcinoma Depression Thyroid nodule Diabetes mellitus Rheumatoid arthritis Gout Arthritis Allergies Family History (Updated 02/17/24 @ 16:00 by Anastasiya Francisco CMA) Mother HTN (hypertension) Social History (Updated 02/17/24 @ 15:52 by Anastasiya Francisco CMA) Housing: House Patient Tobacco Use Status: Former Tobacco user Cigarette Packs Per Day: 1 Years Smoked: 25 e-Cigarette/Vaping Use: Never Used Second Hand Smoke Exposure: No service: Yes Current occupational status: retired Cognitive needs: No Hearing needs: No Vision needs: No Questionnaire PHQ-9 Over the last 2 weeks, how often have you been bothered by any of the following problems? 2. Feeling down, depressed, or hopeless: not at all Source: Developed by Drs. Min De La Rosa, Sharlene Burris, Mau Morales and colleagues, with an educational cl from [employer]. Thrive Questionnaire Date Thrive assessed: 07/05/24 I am a: Patient What is your living situation today?: I have a steady place to live Within the past 12 months, did the food you bought not last and you didn't have the money to get more?: Never true Within the past 12 months, did you worry whether your food would run out before you got money to buy more?: Never true Do you have trouble paying for medicines?: No Do you have trouble getting transportation to medical appointments?: No Do you have trouble paying your heating and electricity bill?: No Do you have trouble taking care of your child, family member or friend?: No Do you have trouble with day-to-day activities such as bathing, preparing meals, shopping, managing finances, etc.?: No Are you currently unemployed and looking for a job?: No Are you interested in more education?: No Please select the resources that you would like help with: None Currently or been in a relationship where the following occur: I choose not to answer THRIVE Score: 0 TIMO-7 AMB Questionnaire TIMO-7 Date TIMO - 7 assessed: 07/05/24 Becoming easily annoyed or irritable: 1 = Several days Source: Developed by Drs. Min De La Rosa, Sharlene Burris, Mau Morales and colleagues, with an educational cl from [employer]. Physical exam (Primary Care) Vital Signs: Last Vital Signs Pulse 65 07/19/24 11:26 BP 116/74 07/19/24 11:26 Pulse Ox 93 07/19/24 11:26 Oxygen Delivery Method Room Air 07/19/24 11:26 BMI result Body Mass Index 33.0 Tobacco/Smoking Status: Tobacco use Status Tobacco use date assessed 02/17/24 07/19/24 11:18 Patient Tobacco Use Status Former Tobacco user 07/19/24 11:18 e-Cigarette/Vaping Use Never Used 07/19/24 11:18 Thrive Assessment: Date of Thrive Assessment Date Thrive assessed 07/05/24 07/19/24 11:18 Currently or been in a relationship where the following occur: I choose not to answer Coding Level of Care Code Est Pt Level 4 (66883) Complex EM visit Add On G2211 Diagnoses Primary hypertension I10 Hypertension type: primary hypertension Lung nodule R91.1 Adrenal adenoma, unspecified laterality D35.00 Laterality: unspecified laterality Mucoepidermoid carcinoma C80.1 Assessment & Plan Assessment & Plan (1) Hypertension: Code(s): I10 - Essential (primary) hypertension Category: Medical Qualifiers: Hypertension type: primary hypertension Qualified Code(s): I10 - Essential (primary) hypertension Plan: Controlled today Will make her planned medications starting tomorrow. BP being monitored at home She will have BMP again on 08/03 (2) Lung nodule: Code(s): R91.1 - Solitary pulmonary nodule Category: Medical Plan: CT with IV contrast order (3) Adrenal adenoma: Code(s): D35.00 - Benign neoplasm of unspecified adrenal gland Category: Medical Qualifiers: Laterality: unspecified laterality Qualified Code(s): D35.00 - Benign neoplasm of unspecified adrenal gland Plan: CT scheduling pending (4) Mucoepidermoid carcinoma: Code(s): C80.1 - Malignant (primary) neoplasm, unspecified Category: Medical Plan: CT scheduling pending Orders: Orders CT chest w IV con Today R91.1 - Solitary pulmonary nodule
[2024-07-19 11:26] VITALS: BP 116/74; PULSE 65; O2SAT 93; BMI 33.0
== END 2024-07-19 12:07 | disposition home or self-care (01) ==
PROVIDERS: PCP Internal Medicine; Visit Provider Internal Medicine
DX: I10 Essential (primary) hypertension (principal); R91.1 Solitary pulmonary nodule; D35.00 Benign neoplasm of unspecified adrenal gland; C80.1 Malignant (primary) neoplasm, unspecified

== ENCOUNTER → 2024-07-19 11:03 | Outpatient (BNVA) | payer MEDICARE, OTHER, SELFPAY | PROVIDERS: PCP Internal Medicine; Visit Provider Internal Medicine | DX: I10 Essential (primary) hypertension (principal); R91.1 Solitary pulmonary nodule; D35.00 Benign neoplasm of unspecified adrenal gland; C80.1 Malignant (primary) neoplasm, unspecified | CPT/HCPCS: 99212 ==

== ENCOUNTER 2024-08-03 10:29 | Outpatient (AMB) | payer MEDICARE, OTHER, SELFPAY ==
[2024-08-03 10:36] VITALS: BP 122/72; PULSE 85; O2SAT 95; BMI 32.8
--- NOTE | 2024-08-03 10:36 | A.OFFVIS_ITS ---
Vital Signs 08/03/24 10:36 Height 5 ft 3 in Weight 185 lb BMI 32.8 BP 122/72 Blood Pressure Location Lt brachial Position Sitting Pulse 85 Pulse Source Doppler Pulse Oximetry (%) 95 Oxygen Delivery Method Room Air Intake Visit Reasons: copd Allergies penicillin G Allergy (Severe, Verified 08/03/24 10:42) shock tizanidine Allergy (Mild, Verified 08/03/24 10:42) unknown amoxicillin [From Augmentin] Allergy (Unknown, Verified 08/03/24 10:42) Unknown ciprofloxacin Allergy (Unknown, Verified 08/03/24 10:42) Unknown clarithromycin [From Biaxin] Allergy (Unknown, Verified 08/03/24 10:42) Unknown clavulanic acid [From Augmentin] Allergy (Unknown, Verified 08/03/24 10:42) Unknown erythromycin base Allergy (Unknown, Verified 08/03/24 10:42) Unknown polyethylene glycol 3350 Allergy (Unknown, Verified 08/03/24 10:42) Unknown sulfadiazine Allergy (Unknown, Verified 08/03/24 10:42) Unknown tetracycline Allergy (Unknown, Verified 08/03/24 10:42) Unknown tramadol Allergy (Unknown, Verified 08/03/24 10:42) vomit venlafaxine [From Effexor] Allergy (Unknown, Verified 08/03/24 10:42) Unknown adhesive bandaid Allergy (Unknown, Uncoded 07/19/24 11:21) Unknown chapstick Allergy (Unknown, Uncoded 07/19/24 11:21) unknown tania Allergy (Unknown, Uncoded 07/19/24 11:21) Unknown HPI HPI copd: Details: 69-year-old lady, former 30+ pack-year smoker, quit 2004, with underlying pulmonary emphysema unlikely COPD, also incidentally noted 1 cm right lung nodule referred for pulmonary evaluation. Patient also complains of dyspnea on exertion after walking for several 100 yds. She has been using Breo, Spiriva, and albuterol MDI with suboptimal control of her symptoms. Patient has been employed without exposure to industrial dusts. She does have family history of emphysema. Patient states that she has had recent pulmonary function test in [facility]. [facility] Medical History (Updated 07/19/24 @ 14:14 by Aditi Nguyen MD) Anxiety High cholesterol OA (osteoarthritis) Mucoepidermoid carcinoma Depression Thyroid nodule Diabetes mellitus Rheumatoid arthritis Gout Arthritis Allergies Family History (Updated 02/17/24 @ 16:00 by Anastasiya Francisco CMA) Mother HTN (hypertension) Social History (Updated 08/03/24 @ 10:44 by YULISA Wilkerson) Housing: House Patient Tobacco Use Status: Former Tobacco user Cigarette Packs Per Day: 1 Years Smoked: 25, quit 2004, started around age 17, 2PPD e-Cigarette/Vaping Use: Never Used Second Hand Smoke Exposure: No service: Yes Current occupational status: retired Cognitive needs: No Hearing needs: No Vision needs: No Review of Systems Const Denies daytime sleepiness, Denies excessive sweating, Denies fatigue, Denies fever(s), Denies lethargy, Denies malaise, Denies night sweats, Denies snoring and Denies weight loss Eyes Denies blurry vision and Denies itchy eyes ENT Denies nasal congestion, Denies post nasal drip, Denies sinus pain, Denies sinus pressure and Denies other ( Thrush) Card Denies chest pain, Denies pedal edema, Denies dyspnea, Reports dyspnea on exertion, Denies orthopnea and Denies paroxysmal nocturnal dyspnea Resp Denies cough, Denies hemoptysis, Denies excessive phlegm production, Denies dyspnea, Reports dyspnea on exertion, Denies snoring and Denies wheezing GI Denies abdominal pain and Denies heartburn Musc Denies myalgias, Denies arthralgias and Denies joint swelling Skin/Breast Denies rash Neuro Denies memory loss and Denies seizure-like activity Psych Denies abnormal sleep pattern, Denies anxiety and Denies memory loss Endo Denies excessive sweating, Denies fatigue and Denies heat intolerance Topher/Lymph Denies easy bruising Aller/Immun Denies itchy eyes, Denies seasonal rhinorrhea and Denies wheezing Physical Exam Vital Signs: Last Vital Signs Pulse 85 08/03/24 10:36 BP 122/72 08/03/24 10:36 Pulse Ox 95 08/03/24 10:36 Oxygen Delivery Method Room Air 08/03/24 10:36 BMI result Body Mass Index 32.8 Const General: no acute distress and alert Nutritional Appearance: not obese Orientation/consciousness: Other orientation findings ( oriented) HEENT Head: Yes atraumatic Eyes General: appearance normal, both eyes and all related structures Sclerae: sclerae normal EOM: EOMs intact bilaterally Neck Neck: Yes supple Lymphatic: no lymphadenopathy noted Resp Effort & Inspection: normal respiratory effort and no use of accessory muscles Auscultation: clear to auscultation bilaterally Cardio Rate: regular rate Rhythm: regular rhythm Heart sounds: no gallops, no murmurs and no rubs Skin General skin exam: other ( warm) Extrem General: No clubbing, No cyanosis and No edema Office Procedures 6 Minute Walk Time:: 11:05 SPO2 % at rest: 95 Pulse at rest: 70 SPO2 % during excercise: 92 Pulse during excercise: 101 SPO2 % after excercise: 95 Pulse after excercise: 91 Distance in yards walked: 120 Vikash Score: 2 Performance Observations:: Krishna walked on level ground with the assistance of cane to her R hand. She walked on room air for the entire walk maintaining her SPO2 92-95%, no supplemental O2 needed. [id number] - 6 Minute Walk Assessment & Plan Assessment & Plan (1) COPD (chronic obstructive pulmonary disease): Code(s): J44.9 - Chronic obstructive pulmonary disease, unspecified Category: Medical Qualifiers: COPD type: emphysema Emphysema type: centrilobular Qualified Code(s): J43.2 - Centrilobular emphysema Plan: Likely underlying COPD of unclear severity. Obtain most recent PT from [facility]. Continue current regimen of Breo, Spiriva, and albuterol MDI. Start on theophylline. Supplemental oxygen/6 minute walk test performed, at this time patient does not require supplemental oxygen to maintain normal oximetry with exertion. (2) Lung nodule: Code(s): R91.1 - Solitary pulmonary nodule Category: Medical Plan: Incidentally noted 1 cm right-sided nodule greater than 30 pack-year smoker, quit 19 years prior. Will obtain CT chest in 3 months from the index one. Orders: Orders AMB 6 minute walk Today J43.2 - Centrilobular emphysema CT chest wo IV con 10/03/24 R91.1 - Solitary pulmonary nodule Coding Level of Care Code New Pt Level 4 (83777) Complex EM visit Add On G2211 Diagnoses Centrilobular emphysema J43.2 COPD type: emphysema Emphysema type: centrilobular Lung nodule R91.1 CPT Codes Coding ([id number])
[2024-08-03 11:25] VITALS: PULSE 70; O2SAT 95
== END 2024-08-03 11:28 | disposition home or self-care (01) ==
PROVIDERS: PCP Internal Medicine; Visit Provider Internal Medicine Pulmonary Disease
DX: J43.2 Centrilobular emphysema (principal); R91.1 Solitary pulmonary nodule
CPT/HCPCS: 94618; 99204; G2211

== ENCOUNTER → 2024-08-03 10:29 | Outpatient (BNVA) | payer MEDICARE, OTHER, SELFPAY | PROVIDERS: PCP Internal Medicine; Visit Provider Internal Medicine Pulmonary Disease | DX: J43.2 Centrilobular emphysema (principal); R91.1 Solitary pulmonary nodule | CPT/HCPCS: 94618; 99202 ==

== ENCOUNTER 2024-08-04 09:26 | Outpatient (AMB) | payer MEDICARE, OTHER, SELFPAY ==
--- NOTE | 2024-08-04 09:31 | AM.OFFWIN_ITS ---
Intake Vital Signs 08/04/24 09:36 08/04/24 09:54 Height 5 ft 3 in Weight 188 lb BMI 33.3 BP 158/82 H 128/62 Blood Pressure Location Lt brachial Lt brachial Position Sitting Sitting Respiration 15 Pulse 95 Pulse Source Pulse Oximeter Pulse Oximetry (%) 95 Oxygen Delivery Method Room Air Intake Visit Reasons: est/ issue with blood pressure meds Intake Note: Patient complaining of shaking after starting a new blood pressure medication x 2 weeks. Patient Tobacco Use Status: Former Tobacco user Allergies penicillin G Allergy (Severe, Verified 08/04/24 09:45) shock tizanidine Allergy (Mild, Verified 08/04/24 09:45) unknown amoxicillin [From Augmentin] Allergy (Unknown, Verified 08/04/24 09:45) Unknown ciprofloxacin Allergy (Unknown, Verified 08/04/24 09:45) Unknown clarithromycin [From Biaxin] Allergy (Unknown, Verified 08/04/24 09:45) Unknown clavulanic acid [From Augmentin] Allergy (Unknown, Verified 08/04/24 09:45) Unknown erythromycin base Allergy (Unknown, Verified 08/04/24 09:45) Unknown polyethylene glycol 3350 Allergy (Unknown, Verified 08/04/24 09:45) Unknown sulfadiazine Allergy (Unknown, Verified 08/04/24 09:45) Unknown tetracycline Allergy (Unknown, Verified 08/04/24 09:45) Unknown tramadol Allergy (Unknown, Verified 08/04/24 09:45) vomit venlafaxine [From Effexor] Allergy (Unknown, Verified 08/04/24 09:45) Unknown adhesive bandaid Allergy (Unknown, Uncoded 07/19/24 11:21) Unknown chapstick Allergy (Unknown, Uncoded 07/19/24 11:21) unknown tania Allergy (Unknown, Uncoded 07/19/24 11:21) Unknown Medication List - Last Reconciled 08/04/24 by Julieta Laurent, MANAGER ECONOMIC- albuterol sulfate 90 mcg/actuation 2 puffs inhalation Q6H PRN amitriptyline 25 mg PO BEDTIME aspirin (Adult Aspirin Regimen) 81 mg PO DAILY atenolol 25 mg PO DAILY cyclobenzaprine 5 - 10 mg PO BEDTIME PRN diltiazem HCl ER 240 mg PO DAILY duloxetine 60 mg PO DAILY febuxostat 40 mg PO DAILY fluticasone furoate-vilanterol 100-25 mcg/dose (Breo Ellipta) 1 ea inhalation DAILY fluticasone propionate 50 mcg/actuation 2 sprays intranasal DAILY gabapentin 300 mg PO BID leflunomide 20 mg PO DAILY levothyroxine 25 mcg PO DAILY loratadine-pseudoephedrine 5-120 mg ER (Alavert D-12 Allergy-Sinus) 1 tab PO Q12H magnesium citrate,mag oxide mg PO mupirocin calcium 2% 1 appl topical BID omeprazole 40 mg PO DAILY oxycodone 10 mg PO Q4H PRN 28 days tiotropium bromide 1.25 mcg/actuation (Spiriva Respimat) 2 puffs inhalation DAILY Do you need a note to return to daycare/school/sports/work: No HPI HPI Comments History of Present Illness Details 69-year-old female here today with compl aints of tremors. Started Febuxostat on July 19. The 1st few days she reports that she felt a tremor, like shaking inside of her body. As she continued to take the medication she developed tremors of her entire body. She is now having a hard time walking as a result. She can not tony. Reports otherwise at baseline. She also needs some prescriptions renewed and sent to the pharmacy. Currently omeprazole listed as 40 mg daily however she takes this twice per day, gabapentin 300 mg is listed twice per day and she takes this 3 times per day, amitriptyline 25 mg daily at bedtime. Ninety day supplies with refills have been sent to her mail away pharmacy per her request. Blood pressure is noted to be elevated, recheck shows within normal limits. Exam Awake alert oriented, no acute distress Regular rate and rhythm Lung sounds clear to auscultation bilat Tremors of full body, fine, neurovascularly intact Plan Confirmed tremors as side effect of Febuxostat. stop Febuxostat immediately. Hydrate well. Avoid high purine foods. Follow up with primary care in 1 week. Refill sent in all medications as requested This note is constructed using voice recognition software. While every effort has been made to ensure accuracy in director of labor and delivery, still errors may have been included Sometimes, these errors may affect the content or meaning of the given sentence . Total time spent caring for the patient today was 30 minutes. This includes time spent before the visit reviewing the chart, time spent during the visit, and time spent after the visit on documentation [facility] Medical History (Updated 08/04/24 @ 10:00 by CAMELIA Anderson-SARITA) Anxiety High cholesterol OA (osteoarthritis) Mucoepidermoid carcinoma Depression Thyroid nodule Diabetes mellitus Rheumatoid arthritis Gout Arthritis Allergies Family History (Updated 02/17/24 @ 16:00 by Anastasiya Francisco CMA) Mother HTN (hypertension) Social History (Updated 08/03/24 @ 10:44 by YULISA Wilkerson) Housing: House Patient Tobacco Use Status: Former Tobacco user Cigarette Packs Per Day: 1 Years Smoked: 25, quit 2004, started around age 17, 2PPD e-Cigarette/Vaping Use: Never Used Second Hand Smoke Exposure: No service: Yes Current occupational status: retired Cognitive needs: No Hearing needs: No Vision needs: No Physical Exam Vital Signs: Last Vital Signs Pulse 95 08/04/24 09:36 Resp 15 08/04/24 09:36 BP 158/82 H 08/04/24 09:36 Pulse Ox 95 08/04/24 09:36 Oxygen Delivery Method Room Air 08/04/24 09:36 BMI result Body Mass Index 33.3 Assessment & Plan Assessment & Plan (1) Tremor: Code(s): R25.1 - Tremor, unspecified Plan: . (2) Reaction, drug, adverse: Code(s): T50.905A - Adverse effect of unspecified drugs, medicaments and biological substances, initial encounter Qualifiers: Encounter type: initial encounter Qualified Code(s): T50.905A - Adverse effect of unspecified drugs, medicaments and biological substances, initial encounter Plan: . (3) Hypertension: Code(s): I10 - Essential (primary) hypertension Qualifiers: Hypertension type: primary hypertension Qualified Code(s): I10 - Essential (primary) hypertension Plan: . Medications: New amitriptyline 25 mg PO BEDTIME 90 tabs 2RF Changed From omeprazole 40 mg PO DAILY 90 caps 3RF To omeprazole 40 mg PO BID 180 caps 3RF From gabapentin 300 mg PO TID To gabapentin 300 mg PO TID 90 days 270 caps 2RF Coding Level of Care Code Est Pt Level 4 (98369) Diagnoses Tremor R25.1 Adverse effect of drug, initial encounter T50.905A Encounter type: initial encounter Primary hypertension I10 Hypertension type: primary hypertension
[2024-08-04 09:36] VITALS: BP 158/82; PULSE 95; RESP 15; O2SAT 95; BMI 33.3
[2024-08-04 09:54] VITALS: BP 128/62
== END 2024-08-04 10:05 | disposition home or self-care (01) ==
PROVIDERS: PCP Internal Medicine; Visit Provider Nurse Practitioner Family
DX: R25.1 Tremor, unspecified (principal); T50.905A Adverse effect of unspecified drugs, medicaments and biological substances, initial encounter; I10 Essential (primary) hypertension

== ENCOUNTER → 2024-08-04 09:26 | Outpatient (BNVA) | payer MEDICARE, OTHER, SELFPAY | PROVIDERS: PCP Internal Medicine | DX: R25.1 Tremor, unspecified (principal); T50.995A Adverse effect of other drugs, medicaments and biological substances, initial encounter; I10 Essential (primary) hypertension | CPT/HCPCS: 99212 ==

== ENCOUNTER 2024-08-16 10:27 | Outpatient (AMB) | payer MEDICARE, OTHER, SELFPAY ==
--- NOTE | 2024-08-16 11:03 | MHC.PC.OV ---
Vital Signs 08/16/24 11:06 Height 5 ft 3 in Weight 188 lb BMI 33.3 BP 118/86 Blood Pressure Location Lt brachial Position Sitting Pulse 105 H Pulse Source Pulse Oximeter Pulse Oximetry (%) 96 Oxygen Delivery Method Room Air Intake Visit Reasons: [address] Shavon pizarro tremors, stop Febuxostat Intake Note: One week follow up for tremors. Was told to stop atenolol, the booking notes state febuoxostat. Allergies penicillin G Allergy (Severe, Verified 08/16/24 11:04) shock tizanidine Allergy (Mild, Verified 08/16/24 11:04) unknown amoxicillin [From Augmentin] Allergy (Unknown, Verified 08/16/24 11:04) Unknown ciprofloxacin Allergy (Unknown, Verified 08/16/24 11:04) Unknown clarithromycin [From Biaxin] Allergy (Unknown, Verified 08/16/24 11:04) Unknown clavulanic acid [From Augmentin] Allergy (Unknown, Verified 08/16/24 11:04) Unknown erythromycin base Allergy (Unknown, Verified 08/16/24 11:04) Unknown polyethylene glycol 3350 Allergy (Unknown, Verified 08/16/24 11:04) Unknown sulfadiazine Allergy (Unknown, Verified 08/16/24 11:04) Unknown tetracycline Allergy (Unknown, Verified 08/16/24 11:04) Unknown tramadol Allergy (Unknown, Verified 08/16/24 11:04) vomit venlafaxine [From Effexor] Allergy (Unknown, Verified 08/16/24 11:04) Unknown adhesive bandaid Allergy (Unknown, Uncoded 08/16/24 11:04) Unknown chapstick Allergy (Unknown, Uncoded 08/16/24 11:04) unknown tania Allergy (Unknown, Uncoded 08/16/24 11:04) Unknown Tobacco use date assessed: 02/17/24 Dental Screening Dental Screen Date: 02/17/24 HPI HPI Comments History of Present Illness Details The patient is a 69 year old female with a past medical history of chronic pain, DDD spine, RA, prediabetes/diabetes, depression/grief, hypertension, hypothyroid presenting for follow up She was recently seen by my colleague after developing significant tremor. It was thought to be due to her febuxostat, however patient explains she has been on this for years. She had been transitioned from nadolol, metolazone and potassium to atenolol just around the time the tremor developed so she stopped the atenolol. She remained off the nadolol, metolazone and potassium. Despite this her blood pressure is normal today. Her tremor has lessened but still is happening intermittently 1.Patient was hospitalized from 06/30-07/02/2024. Presented with confusion/lethargy. Wad found to have PEYMAN, possible UTI, COPD exacerbation, possible pna. She was hypoxic. She required supplemental oxygen during admission. Almost sent home with 2L at rest and 6L on ambulation but ended up cleared by RT her last day. Lethargy improved with [address] and fluids. She had CT chest with emphysematous changes. She was started on Breo & Spiriva, also on prednisone during admission. Right fissural nodule on CT with recommendation for 3 month f/up, PET, or biopsy. Referred to pulmonary today. Incidental left adrenal adenoma 0.6cm with recommendation for follow up. She was recommended to decrease metolazone to 2.5 MWF, continue potassium, nadolol restarted, continue diltiazem. Cr at discharge 1.3. 2.Over the summer had noticed enlargement and discomfort of the lymph nodes in her neck, particularly in the right upper neck. She had issues in the past with abnormality of the parotid. She had u/s of the neck with a few mildly prominent morphologically normal and not pathologically enlarged lymph nodes the right neck at level once. Blood work was fairly reassuring. -CT of the neck, chest and abdomen is pending scheduling. -She has consult with pulm scheduled for Aug 03. -At last visit we started atenolol and stopped nadolol, metolazone and potassium. She just received the atenolol from mail order so will make this change starting tomorrow -She continues to have home health. They are checking blood pressures -She tested positive for Hudson at her last visit though I suspect this was contracted over the summer Chronic pain: Maintained on chronic opioid therapy. History of spinal surgery. Follows rheumatology. MRI right shoulder-nondiagnostic exam due to severe metal artifiact relating to right shoulder relpacement hardware. Severe atrophy of rotator cuff musculature. CT later in the month ?bursitis in right glenoid, superinfection cannot be ruled out . CV: On diltiazem. see above. Intolerant of multiple medications in the past and was hesitant to change but now is considering in the setting of recent PEYMAN, dehydration. She notes previously difficult to manage blood pressure. Hypothyroid-on levothyroxine Non compliant with preventive care ROS see HPI PHYSICAL EXAM: GENERAL: Alert and oriented x 3. NAD EYES: EOMI. Anicteric. HENT: Moist mucous membranes. Enlarged tender ant cervical, submand nodes LUNGS: Clear to auscultation bilaterally. CARDIOVASCULAR: Regular rate and rhythm. No murmur. No JVD. ABDOMEN: Soft, non-tender +bs EXTREMITIES: No edema. Non-tender. SKIN: No rashes or lesions. Warm. NEUROLOGIC: No focal neurological deficits. CN II-XII grossly intact PSYCHIATRIC: Cooperative. Appropriate mood and affect [facility] Medical History (Updated 08/04/24 @ 10:00 by Julieta Laurent, BREAKING MACHINE OPERATOR-) Anxiety High cholesterol OA (osteoarthritis) Mucoepidermoid carcinoma Depression Thyroid nodule Diabetes mellitus Rheumatoid arthritis Gout Arthritis Allergies Family History (Updated 02/17/24 @ 16:00 by Anastasiya Francisco [facility]) Mother HTN (hypertension) Social History (Updated 08/03/24 @ 10:44 by Flower Carter [facility]) Housing: House Patient Tobacco Use Status: Former Tobacco user Cigarette Packs Per Day: 1 Years Smoked: 25, quit 2004, started around age 17, 2PPD Packs Per Year: 0 e-Cigarette/Vaping Use: Never Used Second Hand Smoke Exposure: No service: Yes Current occupational status: retired Cognitive needs: No Hearing needs: No Vision needs: No Questionnaire Thrive Questionnaire Date Thrive assessed: 07/05/24 I am a: Patient What is your living situation today?: I have a steady place to live Within the past 12 months, did the food you bought not last and you didn't have the money to get more?: Never true Within the past 12 months, did you worry whether your food would run out before you got money to buy more?: Never true Do you have trouble paying for medicines?: No Do you have trouble getting transportation to medical appointments?: No Do you have trouble paying your heating and electricity bill?: No Do you have trouble taking care of your child, family member or friend?: No Do you have trouble with day-to-day activities such as bathing, preparing meals, shopping, managing finances, etc.?: No Are you currently unemployed and looking for a job?: No Are you interested in more education?: No Please select the resources that you would like help with: None Currently or been in a relationship where the following occur: I choose not to answer THRIVE Score: 0 TIMO-7 AMB Questionnaire TIMO-7 Date TIMO - 7 assessed: 07/05/24 Source: Developed by Drs. Min De La Rosa, Sharlene Burris, Mau Morales and colleagues, with an educational cl from [email or web address]. Physical exam (Primary Care) Vital Signs: Last Vital Signs Pulse 105 H 08/16/24 11:06 BP 118/86 08/16/24 11:06 Pulse Ox 96 08/16/24 11:06 Oxygen Delivery Method Room Air 08/16/24 11:06 BMI result Body Mass Index 33.3 Tobacco/Smoking Status: Tobacco use Status Tobacco use date assessed 02/17/24 08/16/24 11:11 Patient Tobacco Use Status Former Tobacco user 08/16/24 11:11 e-Cigarette/Vaping Use Never Used 08/16/24 11:11 Thrive Assessment: Date of Thrive Assessment Date Thrive assessed 07/05/24 08/16/24 11:11 Currently or been in a relationship where the following occur: I choose not to answer Coding Level of Care Code Est Pt Level 4 (88638) Diagnoses Tremor R25.1 Primary hypertension I10 Hypertension type: primary hypertension Assessment & Plan Assessment & Plan (1) Tremor: Code(s): R25.1 - Tremor, unspecified Category: Medical Plan: She has not had trouble with febuxostat in the past-she can continue this-she did not discontinue it to date It is more likely due to stopping nadolol. We will have her restart this since she self discontinued the atenolol already She will call if persistent or worsening tremor (2) Hypertension: Code(s): I10 - Essential (primary) hypertension Category: Medical Qualifiers: Hypertension type: primary hypertension Qualified Code(s): I10 - Essential (primary) hypertension Plan: well controlled Low sodium diet Medications: New duloxetine 60 mg PO DAILY 90 caps 3RF nadolol 80 mg PO DAILY 90 tabs 3RF
[2024-08-16 11:06] VITALS: BP 118/86; PULSE 105; O2SAT 96; BMI 33.3
== END 2024-08-16 11:49 | disposition home or self-care (01) ==
LOC: HO.HMCFM 10:28
PROVIDERS: PCP Internal Medicine; Visit Provider Internal Medicine
DX: R25.1 Tremor, unspecified (principal); I10 Essential (primary) hypertension

== ENCOUNTER → 2024-08-16 10:27 | Outpatient (BNVA) | payer MEDICARE, OTHER, SELFPAY | PROVIDERS: PCP Internal Medicine; Visit Provider Internal Medicine | DX: R25.1 Tremor, unspecified (principal); I10 Essential (primary) hypertension; G89.29 Other chronic pain; M06.9 Rheumatoid arthritis, unspecified; R73.03 Prediabetes; E03.9 Hypothyroidism, unspecified | CPT/HCPCS: 99212 ==

== ENCOUNTER → 2024-08-16 23:59 | Outpatient (BNV) | payer MEDICARE, OTHER, SELFPAY | PROVIDERS: PCP Internal Medicine; Visit Provider Internal Medicine | DX: J44.1 Chronic obstructive pulmonary disease with (acute) exacerbation (principal); J96.01 Acute respiratory failure with hypoxia; G93.41 Metabolic encephalopathy | CPT/HCPCS: G0180 ==

== ENCOUNTER 2024-09-06 08:20 | Outpatient (REF) | payer MEDICARE, OTHER, SELFPAY ==
--- NOTE | ~2024-09-06 | CT_ITS ---
EXAMINATION: CT SOFT TISSUE NECK WITHOUT AND WITH CONTRAST CLINICAL INFORMATION: Enlarged lymph nodes. COMPARISON: None available. TECHNIQUE: Without and Following the intravenous administration of 60 mL of Omnipaque 350 intravenous contrast, helical imaging was performed in the axial plane with generation of coronal and sagittal reformatted images. This CT examination was performed using dose optimization techniques as appropriate, variously including the following: *Automated exposure control *Adjustment of mA and/or kV according to patient size (this includes techniques or standardized protocols for targeted exams where dose is matched to indication/reason for exam; i.e. extremities or head) *Use of iterative reconstruction technique DLP: 298.6 mGy-cm FINDINGS: Submitted for interpretation on September 21, 2024. There are a few scattered nonspecific prominent less than 10 mm lymph nodes throughout the soft tissue neck. Skull base, nasopharynx, oropharynx, retropharynx, hypopharynx and larynx demonstrated no gross mass or fluid collection. Status post right hemithyroidectomy. Enlarged left thyroid lobe with subcentimeter low-density nodules. Vascular spaces, parapharyngeal spaces, carotid spaces demonstrated no gross mass or fluid collection. Salivary glands demonstrated small atrophic right parotid gland. No calcifications/lithiasis. Oral cavity, sublingual and submental compartments demonstrated no gross masses or fluid collections. Calcified plaques in the thoracic aortic arch the origin of its main branches the carotid bulbs and both ICAs. Dominant left internal jugular vein. Mosaic pulmonary pattern. Multilevel cervical spondylosis resulting in grade 1 anterolisthesis C3-4 and C4-5 levels and kyphotic deformity apex at 6. Partially calcified pannus formation, periodontal region abutting the ventral medulla oblongata. Beam hardening artifact secondary to metallic prosthesis right shoulder. Edentulus, maxilla and mandible. Tympanic cavities and mastoid cells are aerated. Retention cysts versus polyp and mucosal thickening maxillary sinuses more conspicuous on the right side. Calcified plaques in the cavernous and supraclinoid segments both ICA. Focal CSF prominence in the left parietal region. CT/CT soft tissue neck w IV con IMPRESSION: Nonspecific prominent cervical lymph nodes. No gross masses. Small airway disease versus small pulmonary artery disease. Multilevel cervical spondylosis. Calcified pannus formation suggesting rheumatoid arthritis versus CPPD. Questionable encephalomalacia, left parietal lobe. Electronically signed by: Nii Jasso MD 09/21/2024 10:45 AM EST [facility]
--- NOTE | ~2024-09-06 | CT_ITS ---
EXAMINATION: CT CHEST WITHOUT CONTRAST CLINICAL INFORMATION: Solitary pulmonary nodule. Enlarged lymph nodes. COMPARISON: None available. TECHNIQUE: Multidetector volumetric CT imaging of the chest was done. Axial MIP volume rendering provided. Sagittal and coronal reformatted images were obtained. This CT examination was performed using dose optimization techniques as appropriate, variously including the following: *Automated exposure control *Adjustment of mA and/or kV according to patient size (this includes techniques or standardized protocols for targeted exams where dose is matched to indication/reason for exam; i.e. extremities or head) *Use of iterative reconstruction technique DLP: 272.3 mGy-cm FINDINGS: Submitted for interpretation on September 21, 2024. There is an 8 mm noncalcified pulmonary nodule in the superior segment right lower lung lobe. There is a 3 mm noncalcified pulmonary nodule in the apical posterior segment left upper lung lobe. Nonspecific prominent, less than 12 mm lymph nodes in the mediastinum. Bilateral pulmonary mosaic pattern. Patchy and linear attenuation abnormality is in the lingula and lung bases. No bronchiectasis. No gross honeycombing. Centrilobular emphysematous changes involving mostly the upper lobes. No pleural effusion. No pneumothorax. No gross consolidation. Respiratory airways patent. Calcified plaques in the thoracic aortic arch. The main branches. No aneurysm, thoracic aorta. Calcified plaques in the coronary arteries. No pericardial effusion. Small and hernia. Small accessory spleen. Soft tissue fullness both adrenal glands. Nodular surface of the liver with a prominent caudate lobe. Right hemithyroidectomy. Beam hardening artifact secondary to metallic prosthesis in the right humerus/right shoulder. Degenerative changes in the left shoulder. Multilevel cervical thoracic spondylosis without acute fracture or listhesis. No lytic or blastic lesions. No acute rib fracture. CT/CT chest wo IV con IMPRESSION: Noncalcified pulmonary nodules, right lung. Fleischner criteria: Low and high risk patients: CT at 3-6-month, then consider CT at 18-24 months. Nonspecific prominent lymph nodes, mediastinum. Fleischner guidelines were followed. Electronically signed by: Nii Jasso MD 09/21/2024 10:55 AM EST
[2024-09-06] MEDS: iohexoL 350 MG/ML 100 ML INFUS..BTL IV (09:35)
[2024-09-07 09:59] LABS: Creatinine POC 1.5 mg/dL (0.5-1.4); GFR POC 37
== END 2024-09-06 08:21 | disposition home or self-care (01) ==
LOC: HO.CT 08:20
PROVIDERS: Absent Provider Internal Medicine Pulmonary Disease; PCP Internal Medicine; Visit Provider Internal Medicine
DX: R91.1 Solitary pulmonary nodule (principal); C80.1 Malignant (primary) neoplasm, unspecified; R59.9 Enlarged lymph nodes, unspecified
CPT/HCPCS: 70491; 71250; 82565; Q9967

== ENCOUNTER → 2024-09-06 08:24 | Outpatient (BNV) | payer MEDICARE, OTHER, SELFPAY | PROVIDERS: Absent Provider Internal Medicine Pulmonary Disease; PCP Internal Medicine; Visit Provider Radiology Diagnostic Radiology | DX: R59.9 Enlarged lymph nodes, unspecified (principal); R91.1 Solitary pulmonary nodule | CPT/HCPCS: 70491; 71250 ==

== ENCOUNTER 2024-09-09 08:05 | Outpatient (REF) | payer MEDICARE, OTHER, SELFPAY ==
--- NOTE | ~2024-09-09 | CT_ITS ---
. EXAMINATION: CT adrenal without and with IV contrast. CLINICAL INFORMATION: Benign neoplasm of unspecified adrenal gland. COMPARISON: No priors. TECHNIQUE: Contiguous axial images through the adrenal glands from the lung bases to the iliac crests using 3 mm collimation without and following the IV contrast administration. Total of 85 cc Omnipaque 350 strength given without reported immediate complications. This CT examination was performed using dose optimization technique as appropriate variously including the following: Automated exposure control Automatic of MA and or KV according to patient size Use of interactive reconstruction technique. DLP: 785 mGy-cm.. FINDINGS: Right adrenal gland: There is a 1 cm low density nodule measuring 20, 86 and 47 Hounsfield units in the noncontrast, portal venous phase and delayed phase respectively. Left adrenal gland: There is a 1 cm low density nodule which measures 9 Hounsfield units in the non-IV contrast, 83 Hounsfield units in the portal venous phase and 47 Hounsfield units in the delayed phase. Ancillary findings: Calcified plaques in the coronary arteries. Cholelithiasis. Multifocal, different sizes exophytic, cortical medullary junction and cortical low density lesions throughout the kidneys. There is a 1.7 cm exophytic heterogeneous enhancing lesion in the posterior midportion of the left kidney Septated low density lesion in the lower pole left kidney and the posterior midportion right kidney. Calcified plaques abdominal aorta without aneurysm or dissection. Enlarged caudate lobe and nodular surface of the liver. Multilevel thoracolumbar spondylosis. Bone marrow inhomogeneity suggesting calcium metabolic disorder. Status post posterior lower lumbar fusion no fully evaluated resulting in incomplete ankylosis. CT/CT adrenal wo/w IV con IMPRESSION: Lipid rich adenoma, both adrenal glands. Bosniak type II cysts, bilaterally. There is a Bosniak type III lesion in the left kidney and no fully evaluated this is suspicious. Cholelithiasis. Concerning for cirrhosis. Coronary artery disease and atherosclerosis disease. Electronically signed by: Nii Jasso MD 09/21/2024 10:11 AM EST
[2024-09-09] MEDS: iohexoL 350 MG/ML 75 ML INFUS..BTL 85 ML IV (09:27)
[2024-09-11 08:47] LABS: Creatinine POC 1.2 mg/dL (0.5-1.4); GFR POC 46
== END 2024-09-09 08:06 | disposition home or self-care (01) ==
LOC: HO.CT 08:05
PROVIDERS: PCP Internal Medicine; Visit Provider Internal Medicine
DX: D35.00 Benign neoplasm of unspecified adrenal gland (principal); R59.9 Enlarged lymph nodes, unspecified; R91.1 Solitary pulmonary nodule; R59.0 Localized enlarged lymph nodes
CPT/HCPCS: 74170; 82565; Q9967

== ENCOUNTER → 2024-09-09 08:07 | Outpatient (BNV) | payer MEDICARE, OTHER, SELFPAY | PROVIDERS: PCP Internal Medicine; Visit Provider Radiology Diagnostic Radiology | DX: D35.00 Benign neoplasm of unspecified adrenal gland (principal) | CPT/HCPCS: 74170 ==

== ENCOUNTER 2024-09-20 12:41 | Outpatient (AMB) | payer MEDICARE, OTHER, SELFPAY ==
--- NOTE | 2024-09-20 13:11 | MHC.PC.OV ---
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 Accompanied by: Son Allergies penicillin G Allergy (Severe, Verified 09/20/24 13:12) shock tizanidine Allergy (Mild, Verified 09/20/24 13:12) unknown amoxicillin [From Augmentin] Allergy (Unknown, Verified 09/20/24 13:12) Unknown ciprofloxacin Allergy (Unknown, Verified 09/20/24 13:12) Unknown clarithromycin [From Biaxin] Allergy (Unknown, Verified 09/20/24 13:12) Unknown clavulanic acid [From Augmentin] Allergy (Unknown, Verified 09/20/24 13:12) Unknown erythromycin base Allergy (Unknown, Verified 09/20/24 13:12) Unknown polyethylene glycol 3350 Allergy (Unknown, Verified 09/20/24 13:12) Unknown sulfadiazine Allergy (Unknown, Verified 09/20/24 13:12) Unknown tetracycline Allergy (Unknown, Verified 09/20/24 13:12) Unknown tramadol Allergy (Unknown, Verified 09/20/24 13:12) vomit venlafaxine [From Effexor] Allergy (Unknown, Verified 09/20/24 13:12) Unknown adhesive bandaid Allergy (Unknown, Uncoded 09/20/24 13:12) Unknown chapstick Allergy (Unknown, Uncoded 09/20/24 13:12) unknown tania Allergy (Unknown, Uncoded 09/20/24 13:12) Unknown Tobacco use date assessed: 02/17/24 Dental Screening Dental Screen Date: 02/17/24 HPI HPI Comments History of Present Illness Details The patient is a 69 year old female with a past medical history of chronic pain, DDD spine, RA, prediabetes/diabetes, depression/grief, hypertension, hypothyroid presenting for follow up 1.Patient was hospitalized from 06/30-07/02/2024. Presented with confusion/lethargy. Wad found to have PEYMAN, possible UTI, COPD exacerbation, possible pna. She was hypoxic. She required supplemental oxygen during admission. Almost sent home with 2L at rest and 6L on ambulation but ended up cleared by RT her last day. Lethargy improved with 02 and fluids. She had CT chest with emphysematous changes. She was started on Breo & Spiriva, also on prednisone during admission. Right fissural nodule on CT with recommendation for 3 month f/up, PET, or biopsy. Referred to pulmonary today. Incidental left adrenal adenoma 0.6cm with recommendation for follow up. She was recommended to decrease metolazone to 2.5 MWF, continue potassium, nadolol restarted, continue diltiazem. Cr at discharge 1.3. 2.Over the summer had noticed enlargement and discomfort of the lymph nodes in her neck, particularly in the right upper neck. She had issues in the past with abnormality of the parotid. She had u/s of the neck with a few mildly prominent morphologically normal and not pathologically enlarged lymph nodes the right neck at level once. Blood work was fairly reassuring. -CT of the neck, chest and abdomen has been performed but is not yet read by radiology. We will follow up once the reading is ready -Post discharge she had home health. They were helpful with medication compliance and chronic disease management. Son would like evaluation for consideration of services. COPD: She is following with pulmonary. Chronic pain: Maintained on chronic opioid therapy. History of spinal surgery. Follows rheumatology. MRI right shoulder-nondiagnostic exam due to severe metal artifiact relating to right shoulder relpacement hardware. Severe atrophy of rotator cuff musculature. CT later in the month ?bursitis in right glenoid, superinfection cannot be ruled out . CV: On diltiazem, nadolol. Denies chest pain, shortness of breath Hypothyroid-on levothyroxine Diabetes-A1Cs fluctuate btw diabetes and prediabetes. She refuses medications BH: Psych referral recently placed. Son says mom can spend whole days without going out, staying in bed. She thinks she continues to deal with normal grief. She continues on duloxetine Non compliant with preventive care ROS see HPI PHYSICAL EXAM: GENERAL: Alert and oriented x 3. NAD EYES: EOMI. Anicteric. HENT: Moist mucous membranes. Enlarged tender ant cervical, submand nodes LUNGS: Clear to auscultation bilaterally. CARDIOVASCULAR: Regular rate and rhythm. No murmur. No JVD. ABDOMEN: Soft, non-tender +bs EXTREMITIES: No edema. Non-tender. SKIN: No rashes or lesions. Warm. NEUROLOGIC: No focal neurological deficits. CN II-XII grossly intact PSYCHIATRIC: Cooperative. Appropriate mood and affect [facility] Medical History (Updated 09/08/24 @ 08:36 by Aditi Nguyen MD) Anxiety High cholesterol OA (osteoarthritis) Mucoepidermoid carcinoma Depression Thyroid nodule Diabetes mellitus Rheumatoid arthritis Gout Arthritis Allergies Family History (Updated 02/17/24 @ 16:00 by Anastasiya Francisco CMA) Mother HTN (hypertension) Social History (Updated 08/03/24 @ 10:44 by YULISA Wilkerson) Housing: House Patient Tobacco Use Status: Former Tobacco user Cigarette Packs Per Day: 1 Years Smoked: 25, quit 2004, started around age 17, 2PPD e-Cigarette/Vaping Use: Never Used Second Hand Smoke Exposure: No service: Yes Current occupational status: retired Cognitive needs: No Hearing needs: No Vision needs: No Questionnaire Thrive Questionnaire Date Thrive assessed: 07/05/24 I am a: Patient What is your living situation today?: I have a steady place to live Within the past 12 months, did the food you bought not last and you didn't have the money to get more?: Never true Within the past 12 months, did you worry whether your food would run out before you got money to buy more?: Never true Do you have trouble paying for medicines?: No Do you have trouble getting transportation to medical appointments?: No Do you have trouble paying your heating and electricity bill?: No Do you have trouble taking care of your child, family member or friend?: No Do you have trouble with day-to-day activities such as bathing, preparing meals, shopping, managing finances, etc.?: No Are you currently unemployed and looking for a job?: No Are you interested in more education?: No Please select the resources that you would like help with: None Currently or been in a relationship where the following occur: I choose not to answer THRIVE Score: 0 TIMO-7 AMB Questionnaire TIMO-7 Date TIMO - 7 assessed: 07/05/24 Source: Developed by Drs. Min De La Rosa, Sharlene Burris, Mau Morales and colleagues, with an educational cl from [employer]. Physical exam (Primary Care) Vital Signs: Last Vital Signs BP 122/76 09/20/24 13:20 BMI result Body Mass Index 32.9 Tobacco/Smoking Status: Tobacco use Status Tobacco use date assessed 02/17/24 09/20/24 13:13 Patient Tobacco Use Status Former Tobacco user 09/20/24 13:13 e-Cigarette/Vaping Use Never Used 09/20/24 13:13 Thrive Assessment: Date of Thrive Assessment Date Thrive assessed 07/05/24 09/20/24 13:13 Currently or been in a relationship where the following occur: I choose not to answer Coding Level of Care Code Est Pt Level 4 (64491) Diagnoses Grief F43.21 Primary hypertension I10 Hypertension type: primary hypertension Adrenal adenoma, unspecified laterality D35.00 Laterality: unspecified laterality Assessment & Plan Assessment & Plan (1) Grief: Code(s): F43.21 - Adjustment disorder with depressed mood Category: Medical Plan: MDD, grief Continue current medications Discussed that she should at least try counseling. She is agreeable. This referral was already placed (2) Hypertension: Code(s): I10 - Essential (primary) hypertension Category: Medical Qualifiers: Hypertension type: primary hypertension Qualified Code(s): I10 - Essential (primary) hypertension Plan: well controlled on current medication (3) Adrenal adenoma: Code(s): D35.00 - Benign neoplasm of unspecified adrenal gland Category: Medical Qualifiers: Laterality: unspecified laterality Qualified Code(s): D35.00 - Benign neoplasm of unspecified adrenal gland Plan: CT reads pending
[2024-09-20 13:20] VITALS: BP 122/76; BMI 32.9
== END 2024-09-20 13:52 | disposition home or self-care (01) ==
PROVIDERS: PCP Internal Medicine; Visit Provider Internal Medicine
DX: F43.21 Adjustment disorder with depressed mood (principal); I10 Essential (primary) hypertension; D35.00 Benign neoplasm of unspecified adrenal gland

== ENCOUNTER → 2024-09-20 12:41 | Outpatient (BNVA) | payer MEDICARE, OTHER, SELFPAY | PROVIDERS: PCP Internal Medicine; Visit Provider Internal Medicine | DX: F43.21 Adjustment disorder with depressed mood (principal); I10 Essential (primary) hypertension; D35.00 Benign neoplasm of unspecified adrenal gland; E03.9 Hypothyroidism, unspecified; Z79.899 Other long term (current) drug therapy | CPT/HCPCS: 99212 ==

== ENCOUNTER → 2024-09-27 14:52 | Outpatient (AMB) | payer MEDICARE, OTHER, SELFPAY ==
--- NOTE | 2024-09-27 15:09 | MHC.PC.OV ---
Intake Visit Reasons: CT RESULTS Allergies penicillin G Allergy (Severe, Verified 10/07/24 13:41) shock tizanidine Allergy (Mild, Verified 10/07/24 13:41) unknown amoxicillin [From Augmentin] Allergy (Unknown, Verified 10/07/24 13:41) Unknown ciprofloxacin Allergy (Unknown, Verified 10/07/24 13:41) Unknown clarithromycin [From Biaxin] Allergy (Unknown, Verified 10/07/24 13:41) Unknown clavulanic acid [From Augmentin] Allergy (Unknown, Verified 10/07/24 13:41) Unknown erythromycin base Allergy (Unknown, Verified 10/07/24 13:41) Unknown polyethylene glycol 3350 Allergy (Unknown, Verified 10/07/24 13:41) Unknown sulfadiazine Allergy (Unknown, Verified 10/07/24 13:41) Unknown tetracycline Allergy (Unknown, Verified 10/07/24 13:41) Unknown tramadol Allergy (Unknown, Verified 10/07/24 13:41) vomit venlafaxine [From Effexor] Allergy (Unknown, Verified 10/07/24 13:41) Unknown adhesive bandaid Allergy (Unknown, Uncoded 09/20/24 13:12) Unknown chapstick Allergy (Unknown, Uncoded 09/20/24 13:12) unknown tania Allergy (Unknown, Uncoded 09/20/24 13:12) Unknown Tobacco use date assessed: 02/17/24 Dental Screening Dental Screen Date: 02/17/24 HPI HPI Comments History of Present Illness Details The patient is a 69 year old female with a past medical history of chronic pain, DDD spine, RA, prediabetes/diabetes, depression/grief, hypertension, hypothyroid presenting for follow up-teleheatlh Reviewing recent imaging-CT neck, chest, abdomen. -CT abdomen with benign appearing adrenal adenoma, suspicious appearing renal mass-referred to urology -CT neck appears reassuring -CT chest with COPD 1.Patient was hospitalized from 06/30-07/02/2024. Presented with confusion/lethargy. Wad found to have PEYMAN, possible UTI, COPD exacerbation, possible pna. She was hypoxic. She required supplemental oxygen during admission. Almost sent home with 2L at rest and 6L on ambulation but ended up cleared by RT her last day. Lethargy improved with 02 and fluids. She had CT chest with emphysematous changes. She was started on Breo & Spiriva, also on prednisone during admission. Right fissural nodule on CT with recommendation for 3 month f/up, PET, or biopsy. Referred to pulmonary today. Incidental left adrenal adenoma 0.6cm with recommendation for follow up. She was recommended to decrease metolazone to 2.5 MWF, continue potassium, nadolol restarted, continue diltiazem. Cr at discharge 1.3. 2.Over the summer had noticed enlargement and discomfort of the lymph nodes in her neck, particularly in the right upper neck. She had issues in the past with abnormality of the parotid. She had u/s of the neck with a few mildly prominent morphologically normal and not pathologically enlarged lymph nodes the right neck at level once. Blood work was fairly reassuring. COPD: She is following with pulmonary. Chronic pain: Maintained on chronic opioid therapy. History of spinal surgery. Follows rheumatology. MRI right shoulder-nondiagnostic exam due to severe metal artifiact relating to right shoulder relpacement hardware. Severe atrophy of rotator cuff musculature. CT later in the month ?bursitis in right glenoid, superinfection cannot be ruled out . CV: On diltiazem, nadolol. Denies chest pain, shortness of breath Hypothyroid-on levothyroxine Diabetes-A1Cs fluctuate btw diabetes and prediabetes. She refuses medications BH: Psych referral recently placed. Son says mom can spend whole days without going out, staying in bed. She thinks she continues to deal with normal grief. She continues on duloxetine Non compliant with preventive care ROS see HPI PHYSICAL EXAM: GENERAL: Alert and oriented x 3. NAD EYES: EOMI. Anicteric. HENT: Moist mucous membranes. Enlarged tender ant cervical, submand nodes LUNGS: Clear to auscultation bilaterally. CARDIOVASCULAR: Regular rate and rhythm. No murmur. No JVD. ABDOMEN: Soft, non-tender +bs EXTREMITIES: No edema. Non-tender. SKIN: No rashes or lesions. Warm. NEUROLOGIC: No focal neurological deficits. CN II-XII grossly intact PSYCHIATRIC: Cooperative. Appropriate mood and affect [facility] Medical History Anxiety High cholesterol OA (osteoarthritis) Mucoepidermoid carcinoma Depression Thyroid nodule Diabetes mellitus Rheumatoid arthritis Gout Arthritis Allergies Family History Mother HTN (hypertension) Social History Housing: House Patient Tobacco Use Status: Former Tobacco user Cigarette Packs Per Day: 1 Years Smoked: 25, quit 2004, started around age 17, 2PPD e-Cigarette/Vaping Use: Never Used Second Hand Smoke Exposure: No service: Yes Current occupational status: retired Cognitive needs: No Hearing needs: No Vision needs: No Questionnaire Thrive Questionnaire Date Thrive assessed: 07/05/24 TIMO-7 AMB Questionnaire TIMO-7 Date TIMO - 7 assessed: 07/05/24 Source: Developed by Drs. Min De La Rosa, Sharlene Burris, Mau Morales and colleagues, with an educational cl from [employer]. Physical exam (Primary Care) Tobacco/Smoking Status: Tobacco use Status Tobacco use date assessed 02/17/24 09/27/24 15:14 Patient Tobacco Use Status Former Tobacco user 09/27/24 15:14 e-Cigarette/Vaping Use Never Used 09/27/24 15:14 Thrive Assessment: Date of Thrive Assessment Date Thrive assessed 07/05/24 09/27/24 15:14 Telehealth Telehealth [facility] Location of provider rendering services: practice address Location of patient: address on file Patient Identification confirmed using: Name, : Yes Telehealth method: voice only Patient verbally consented to treatment: Yes Patient verbally consented to billing insurance company: Yes Patient informed of any privacy concerns related to visit: Yes Minutes spent on Phone/Video with Pt.: 35 Coding Level of Care Code Tele Est Pt Level 4 (38012) Diagnoses Kidney lesion N28.9 Centrilobular emphysema J43.2 COPD type: emphysema Emphysema type: centrilobular Assessment & Plan Assessment & Plan (1) Kidney lesion: Code(s): N28.9 - Disorder of kidney and ureter, unspecified Category: Medical Plan: referral to urology placed (2) COPD (chronic obstructive pulmonary disease): Code(s): J44.9 - Chronic obstructive pulmonary disease, unspecified Category: Medical Qualifiers: COPD type: emphysema Emphysema type: centrilobular Qualified Code(s): J43.2 - Centrilobular emphysema Plan: continue follow up with pulmonary. Orders: Orders CT chest wo IV con 6 Months R91.8 - Other nonspecific abnormal finding of lung field Referrals Urology Referral N28.9 - Disorder of kidney and ureter, unspecified Rheumatology Referral M05.79 - Rheumatoid arthritis with rheumatoid factor of multiple sites without organ or systems involvement
== END ==
LOC: HO.HMCFM 14:52
PROVIDERS: PCP Internal Medicine; Visit Provider Internal Medicine
DX: N28.9 Disorder of kidney and ureter, unspecified (principal); J43.2 Centrilobular emphysema

== ENCOUNTER 2024-10-07 13:33 | Outpatient (AMB) | payer MEDICARE, OTHER, SELFPAY ==
[2024-10-07 13:35] VITALS: BP 138/87; PULSE 79; O2SAT 92; BMI 33.1
--- NOTE | 2024-10-07 13:35 | A.OFFVIS_ITS ---
Vital Signs 10/07/24 13:35 Height 5 ft 3 in Weight 187 lb BMI 33.1 BP 138/87 Blood Pressure Location Lt brachial Position Sitting Pulse 79 Pulse Source Doppler Pulse Oximetry (%) 92 Oxygen Delivery Method Room Air Intake Visit Reasons: COPD Allergies penicillin G Allergy (Severe, Verified 10/07/24 13:41) shock tizanidine Allergy (Mild, Verified 10/07/24 13:41) unknown amoxicillin [From Augmentin] Allergy (Unknown, Verified 10/07/24 13:41) Unknown ciprofloxacin Allergy (Unknown, Verified 10/07/24 13:41) Unknown clarithromycin [From Biaxin] Allergy (Unknown, Verified 10/07/24 13:41) Unknown clavulanic acid [From Augmentin] Allergy (Unknown, Verified 10/07/24 13:41) Unknown erythromycin base Allergy (Unknown, Verified 10/07/24 13:41) Unknown polyethylene glycol 3350 Allergy (Unknown, Verified 10/07/24 13:41) Unknown sulfadiazine Allergy (Unknown, Verified 10/07/24 13:41) Unknown tetracycline Allergy (Unknown, Verified 10/07/24 13:41) Unknown tramadol Allergy (Unknown, Verified 10/07/24 13:41) vomit venlafaxine [From Effexor] Allergy (Unknown, Verified 10/07/24 13:41) Unknown adhesive bandaid Allergy (Unknown, Uncoded 09/20/24 13:12) Unknown chapstick Allergy (Unknown, Uncoded 09/20/24 13:12) unknown tania Allergy (Unknown, Uncoded 09/20/24 13:12) Unknown HPI HPI COPD: Details: 69-year-old lady, former 30+ pack-year smoker, quit 2004, with underlying pulmonary emphysema unlikely COPD, also incidentally noted 1 cm right lung nodule referred for pulmonary evaluation. Patient also complains of dyspnea on exertion after walking for several 100 yds. She has been using Breo, Spiriva, and albuterol MDI with suboptimal control of her symptoms. Patient has been employed without exposure to industrial dusts. She does have family history of emphysema. Patient states that she has had recent pulmonary function test in [employer]. After the last office visit patient had 3 months follow-up CT chest that shows stability of her underlying pulmonary nodules. She denies any recent exacerbations. [facility] Medical History (Updated 09/27/24 @ 15:18 by Aditi Nguyen MD) Anxiety High cholesterol OA (osteoarthritis) Mucoepidermoid carcinoma Depression Thyroid nodule Diabetes mellitus Rheumatoid arthritis Gout Arthritis Allergies Family History (Updated 02/17/24 @ 16:00 by Anastasiya Francisco CMA) Mother HTN (hypertension) Social History (Updated 08/03/24 @ 10:44 by Flower Carter [facility]) Housing: House Patient Tobacco Use Status: Former Tobacco user Cigarette Packs Per Day: 1 Years Smoked: 25, quit 2004, started around age 17, 2PPD e-Cigarette/Vaping Use: Never Used Second Hand Smoke Exposure: No service: Yes Current occupational status: retired Cognitive needs: No Hearing needs: No Vision needs: No Review of Systems Const Denies daytime sleepiness, Denies excessive sweating, Denies fatigue, Denies fe darrell(s), Denies lethargy, Denies malaise, Denies night sweats, Denies snoring and Denies weight loss Eyes Denies blurry vision and Denies itchy eyes ENT Denies nasal congestion, Denies post nasal drip, Denies sinus pain, Denies sinus pressure and Denies other ( Thrush) Card Denies chest pain, Denies pedal edema, Denies dyspnea, Denies orthopnea and Denies paroxysmal nocturnal dyspnea Resp Denies cough, Denies hemoptysis, Denies excessive phlegm production, Denies dyspnea, Denies snoring and Denies wheezing GI Denies abdominal pain and Denies heartburn Musc Denies myalgias, Denies arthralgias and Denies joint swelling Skin/Breast Denies rash Neuro Denies memory loss and Denies seizure-like activity Psych Denies abnormal sleep pattern, Denies anxiety and Denies memory loss Endo Denies excessive sweating, Denies fatigue and Denies heat intolerance Topher/Lymph Denies easy bruising Aller/Immun Denies itchy eyes, Denies seasonal rhinorrhea and Denies wheezing Physical Exam Vital Signs: Last Vital Signs Pulse 79 10/07/24 13:35 BP 138/87 10/07/24 13:35 Pulse Ox 92 10/07/24 13:35 Oxygen Delivery Method Room Air 10/07/24 13:35 BMI result Body Mass Index 33.1 Const General: no acute distress and alert Nutritional Appearance: not obese Orientation/consciousness: Other orientation findings ( oriented) HEENT Head: Yes atraumatic Eyes General: appearance normal, both eyes and all related structures Sclerae: sclerae normal EOM: EOMs intact bilaterally Neck Neck: Yes supple Lymphatic: no lymphadenopathy noted Resp Effort & Inspection: normal respiratory effort and no use of accessory muscles Auscultation: clear to auscultation bilaterally Cardio Rate: regular rate Rhythm: regular rhythm Heart sounds: no gallops, no murmurs and no rubs Skin General skin exam: other ( warm) Extrem General: No clubbing, No cyanosis and No edema Assessment & Plan Assessment & Plan (1) COPD (chronic obstructive pulmonary disease): Code(s): J44.9 - Chronic obstructive pulmonary disease, unspecified Category: Medical Qualifiers: COPD type: emphysema Emphysema type: centrilobular Qualified Code(s): J43.2 - Centrilobular emphysema Plan: Well controlled on Breo, Spiriva, and albuterol MDI. Continue current regimen. (2) Lung nodule: Code(s): R91.1 - Solitary pulmonary nodule Category: Medical Plan: Three months follow-up CT chest shows stability. Will repeat CT chest in 6 months. (already ordered by primary care provider) Medications: New albuterol sulfate 90 mcg/actuation 2 puffs inhalation Q6H PRN 1 ea 6RF wheezing tiotropium bromide 1.25 mcg/actuation (Spiriva Respimat) 2 puffs inhalation DAILY 4 grams 6RF fluticasone furoate-vilanterol 100-25 mcg/dose (Breo Ellipta) 1 ea inhalation DAILY 60 ea 6RF Coding Level of Care Code Est Pt Level 4 (78339) Diagnoses Centrilobular emphysema J43.2 COPD type: emphysema Emphysema type: centrilobular Lung nodule R91.1
== END 2024-10-07 14:13 | disposition home or self-care (01) ==
PROVIDERS: PCP Internal Medicine; Visit Provider Internal Medicine Pulmonary Disease
DX: J43.2 Centrilobular emphysema (principal); R91.1 Solitary pulmonary nodule
CPT/HCPCS: 99214

== ENCOUNTER → 2024-10-07 13:33 | Outpatient (BNVA) | payer MEDICARE, OTHER, SELFPAY | PROVIDERS: PCP Internal Medicine; Visit Provider Internal Medicine Pulmonary Disease | DX: J43.2 Centrilobular emphysema (principal); R91.1 Solitary pulmonary nodule; Z87.891 Personal history of nicotine dependence; Z79.899 Other long term (current) drug therapy | CPT/HCPCS: 99212 ==

== ENCOUNTER 2024-10-31 13:54 | Outpatient (AMB) | payer MEDICARE, OTHER, SELFPAY ==
--- NOTE | 2024-10-31 14:09 | MHC.PC.OV ---
Vital Signs 10/31/24 14:14 Height 5 ft 3 in BMI Reason not done Patient refused/unable BP 104/68 Blood Pressure Location Lt brachial Position Sitting Pulse 62 Pulse Source Pulse Oximeter Pulse Oximetry (%) 93 Oxygen Delivery Method Room Air Intake Visit Reasons: Constant Falling Intake Note: Frequent falls since August 2024. Has not been feeling dizzy Allergies penicillin G Allergy (Severe, Verified 10/31/24 14:10) shock tizanidine Allergy (Mild, Verified 10/31/24 14:10) unknown amoxicillin [From Augmentin] Allergy (Unknown, Verified 10/31/24 14:10) Unknown ciprofloxacin Allergy (Unknown, Verified 10/31/24 14:10) Unknown clarithromycin [From Biaxin] Allergy (Unknown, Verified 10/31/24 14:10) Unknown clavulanic acid [From Augmentin] Allergy (Unknown, Verified 10/31/24 14:10) Unknown erythromycin base Allergy (Unknown, Verified 10/31/24 14:10) Unknown polyethylene glycol 3350 Allergy (Unknown, Verified 10/31/24 14:10) Unknown sulfadiazine Allergy (Unknown, Verified 10/31/24 14:10) Unknown tetracycline Allergy (Unknown, Verified 10/31/24 14:10) Unknown tramadol Allergy (Unknown, Verified 10/31/24 14:10) vomit venlafaxine [From Effexor] Allergy (Unknown, Verified 10/31/24 14:10) Unknown adhesive bandaid Allergy (Unknown, Uncoded 10/31/24 14:10) Unknown chapstick Allergy (Unknown, Uncoded 10/31/24 14:10) unknown tania Allergy (Unknown, Uncoded 10/31/24 14:10) Unknown Tobacco use date assessed: 02/17/24 Dental Screening Dental Screen Date: 02/17/24 HPI HPI Comments History of Present Illness Details The patient is a 69 year old female with a past medical history of chronic pain, DDD spine, RA, prediabetes/diabetes, depression/grief, hypertension, hypothyroid presenting for follow up Notes over the past few months she has had had a handful of episodes where she randomly falls. This has usually happened when she has reached for an item but not bent down or at the waist. She somehow then suddenly falls. She denies any vertigo, dizziness, lightheadedness, palpitations, chest pain. At last visit reviewing recent imaging-CT neck, chest, abdomen. -CT abdomen with benign appearing adrenal adenoma, suspicious appearing renal mass-referred to urology -CT neck appears reassuring -CT chest with COPD 1.Patient was hospitalized from 06/30-07/02/2024. Presented with confusion/lethargy. Wad found to have PEYMAN, possible UTI, COPD exacerbation, possible pna. She was hypoxic. She required supplemental oxygen during admission. Almost sent home with 2L at rest and 6L on ambulation but ended up cleared by RT her last day. Lethargy improved with 02 and fluids. She had CT chest with emphysematous changes. She was started on Breo & Spiriva, also on prednisone during admission. Right fissural nodule on CT with recommendation for 3 month f/up, PET, or biopsy. Referred to pulmonary today. Incidental left adrenal adenoma 0.6cm with recommendation for follow up. She was recommended to decrease metolazone to 2.5 MWF, continue potassium, nadolol restarted, continue diltiazem. Cr at discharge 1.3. 2.Over the summer had noticed enlargement and discomfort of the lymph nodes in her neck, particularly in the right upper neck. She had issues in the past with abnormality of the parotid. She had u/s of the neck with a few mildly prominent morphologically normal and not pathologically enlarged lymph nodes the right neck at level once. Blood work was fairly reassuring. COPD: She is following with pulmonary. Chronic pain: Maintained on chronic opioid therapy. History of spinal surgery. Follows rheumatology. MRI right shoulder-nondiagnostic exam due to severe metal artifiact relating to right shoulder relpacement hardware. Severe atrophy of rotator cuff musculature. CT later in the month ?bursitis in right glenoid, superinfection cannot be ruled out . CV: On diltiazem, nadolol. Denies chest pain, shortness of breath Hypothyroid-on levothyroxine Diabetes-A1Cs fluctuate btw diabetes and prediabetes. She refuses medications BH: Psych referral recently placed. Son says mom can spend whole days without going out, staying in bed. She thinks she continues to deal with normal grief. She continues on duloxetine Non compliant with preventive care ROS see HPI PHYSICAL EXAM: GENERAL: Alert and oriented x 3. NAD EYES: EOMI. Anicteric. HENT: Moist mucous membranes. Enlarged tender ant cervical, submand nodes LUNGS: Clear to auscultation bilaterally. CARDIOVASCULAR: Regular rate and rhythm. No murmur. No JVD. ABDOMEN: Soft, non-tender +bs EXTREMITIES: No edema. Non-tender. SKIN: No rashes or lesions. Warm. NEUROLOGIC: No focal neurological deficits. CN II-XII grossly intact PSYCHIATRIC: Cooperative. Appropriate mood and affect [facility] Medical History Anxiety High cholesterol OA (osteoarthritis) Mucoepidermoid carcinoma Depression Thyroid nodule Diabetes mellitus Rheumatoid arthritis Gout Arthritis Allergies Family History Mother HTN (hypertension) Social History Housing: House Patient Tobacco Use Status: Former Tobacco user Cigarette Packs Per Day: 1 Years Smoked: , quit 2004, started around age 17, 2PPD e-Cigarette/Vaping Use: Never Used Second Hand Smoke Exposure: No service: Yes Current occupational status: retired Cognitive needs: No Hearing needs: No Vision needs: No Questionnaire Thrive Questionnaire Date Thrive assessed: 10/31/24 TIMO-7 AMB Questionnaire TIMO-7 Date TIMO - 7 assessed: 07/05/24 Source: Developed by Drs. Min De La Rosa, Sharlene Burris, Mau Morales and colleagues, with an educational cl from [email or web address]. Physical exam (Primary Care) Vital Signs: Last Vital Signs Pulse 62 10/31/24 14:14 BP 104/68 10/31/24 14:14 Pulse Ox 93 10/31/24 14:14 Oxygen Delivery Method Room Air 10/31/24 14:14 Tobacco/Smoking Status: Tobacco use Status Tobacco use date assessed 02/17/24 10/31/24 14:19 Patient Tobacco Use Status Former Tobacco user 10/31/24 14:19 e-Cigarette/Vaping Use Never Used 10/31/24 14:19 Thrive Assessment: Date of Thrive Assessment Date Thrive assessed 10/31/24 10/31/24 14:19 Coding Level of Care Code Est Pt Level 4 (63208) Diagnoses Frequent falls R29.6 Assessment & Plan Assessment & Plan (1) Frequent falls: Code(s): R29.6 - Repeated falls Category: Medical Plan: No associated or telling symptoms. Does not get vertigo or symptoms etc of orthostasis. Will refer to PT for evaluation, neurology. May get carotid u/s Orders: Orders PT Evaluation and Treatment 10/31/24 R29.6 - Repeated falls US carotid duplex BI Today R29.6 - Repeated falls, R55 - Syncope and collapse Referrals Neurology Referral R29.6 - Repeated falls
[2024-10-31 14:14] VITALS: BP 104/68; PULSE 62; O2SAT 93
== END 2024-10-31 14:47 | disposition home or self-care (01) ==
PROVIDERS: PCP Internal Medicine; Visit Provider Internal Medicine
DX: R29.6 Repeated falls (principal)

== ENCOUNTER → 2024-10-31 13:54 | Outpatient (BNVA) | payer MEDICARE, OTHER, SELFPAY | PROVIDERS: PCP Internal Medicine; Visit Provider Internal Medicine | DX: R29.6 Repeated falls (principal); R55 Syncope and collapse; I10 Essential (primary) hypertension; E11.9 Type 2 diabetes mellitus without complications; M06.9 Rheumatoid arthritis, unspecified | CPT/HCPCS: 99212 ==

== ENCOUNTER → 2024-11-11 09:00 | Outpatient (BNVA) | payer MEDICARE, OTHER, SELFPAY | PROVIDERS: PCP Internal Medicine; Visit Provider Urology | DX: N28.9 Disorder of kidney and ureter, unspecified (principal); R93.429 Abnormal radiologic findings on diagnostic imaging of unspecified kidney | CPT/HCPCS: 99202 ==

== ENCOUNTER 2024-12-20 13:23 | Outpatient (AMB) | payer MEDICARE, OTHER, SELFPAY ==
--- NOTE | 2024-12-20 13:38 | A.OFFPC_ITS ---
Vital Signs 12/20/24 13:42 Height 5 ft 3 in Weight 186 lb 2 oz BMI 33.0 BP 108/66 Blood Pressure Location Lt brachial Position Sitting Respiration 14 Pulse 64 Pulse Source Pulse Oximeter Pulse Oximetry (%) 94 Oxygen Delivery Method Room Air Intake Visit Reasons: Fu labs Intake Note: Follow up lab results. Most recent labs from August. Business Banker Required: No Allergies amoxicillin [From Augmentin] Allergy (Severe, Verified 12/21/24 12:54) Angioedema clarithromycin [From Biaxin] Allergy (Severe, Verified 12/21/24 12:54) Angioedema clavulanic acid [From Augmentin] Allergy (Severe, Verified 12/21/24 12:54) Angioedema erythromycin base Allergy (Severe, Verified 12/21/24 12:54) Angioedema penicillin G Allergy (Severe, Verified 12/20/24 13:41) shock polyethylene glycol 3350 Allergy (Severe, Verified 12/21/24 12:54) Angioedema sulfadiazine Allergy (Severe, Verified 12/21/24 12:54) Angioedema tetracycline Allergy (Severe, Verified 12/21/24 12:54) Angioedema tramadol Allergy (Severe, Verified 12/21/24 12:54) vomit venlafaxine [From Effexor] Allergy (Severe, Verified 12/21/24 12:54) Angioedema tizanidine Allergy (Mild, Verified 12/20/24 13:41) unknown ciprofloxacin Allergy (Unknown, Verified 12/20/24 13:41) Unknown adhesive bandaid Allergy (Severe, Uncoded 12/21/24 12:54) Blister chapstick Allergy (Severe, Uncoded 12/21/24 12:56) unknown tania Allergy (Severe, Uncoded 12/21/24 12:56) Rash Tobacco use date assessed: 02/17/24 Dental Screening Dental Screen Date: 02/17/24 HPI HPI Comments History of Present Illness Details The patient is a 69 year old female with a past medical history of chronic pain, DDD spine, RA, prediabetes/diabetes, depression/grief, hypertension, hypothyroid presenting for follow up Notes over the past few months she has had had a handful of episodes where she randomly falls. This has usually happened when she has reached for an item but not bent down or at the waist. She somehow then suddenly falls. She denies any vertigo, dizziness, lightheadedness, palpitations, chest pain. At last visit reviewing recent imaging-CT neck, chest, abdomen. -CT abdomen with benign appearing adrena l adenoma, suspicious appearing renal mass-referred to urology-she was evaluated-has procedure tomorrow -CT neck appears reassuring -CT chest with COPD 1.Patient was hospitalized from 06/30-06/19. Presented with confusion/lethargy. Wad found to have PEYMAN, possible UTI, COPD exacerbation, possible pna. She was hypoxic. She required supplemental oxygen during admission. Almost sent home with 2L at rest and 6L on ambulation but ended up cleared by RT her last day. Lethargy improved with 02 and fluids. She had CT chest with emphysematous changes. She was started on Breo & Spiriva, also on prednisone during admission. Right fissural nodule on CT with recommendation for 3 month f/up, PET, or biopsy. Referred to pulmonary today. Incidental left adrenal adenoma 0.6cm with recommendation for follow up. She was recommended to decrease metolazone to 2.5 MWF, continue potassium, nadolol restarted, continue diltiazem. Cr at discharge 1.3. 2.Over the summer had noticed enlargemen t and discomfort of the lymph nodes in her neck, particularly in the right upper neck. She had issues in the past with abnormality of the parotid. She had u/s of the neck with a few mildly prominent morphologically normal and not pathologically enlarged lymph nodes the right neck at level once. Blood work was fairly reassuring. COPD: She is following with pulmonary. Chronic pain: Maintained on chronic opioid therapy. History of spinal surgery. Follows rheumatology. MRI right shoulder-nondiagnostic exam due to severe metal artifiact relating to right shoulder relpacement hardware. Severe atrophy of rotator cuff musculature. CV: On diltiazem, nadolol. Denies chest pain, shortness of breath Hypothyroid-on levothyroxine Diabetes-A1Cs fluctuate btw diabetes and prediabetes. She refuses medications BH: Psych referral recently placed. Son says mom can spend whole days without going out, staying in bed. She thinks she continues to deal with normal grief. She continues on duloxetine Non compliant with preventive care ROS see HPI PHYSICAL EXAM: GENERAL: Alert and oriented x 3. NAD EYES: EOMI. Anicteric. HENT: Moist mucous membranes. LUNGS: Clear to auscultation bilaterally. CARDIOVASCULAR: Regular rate and rhythm. No murmur. No JVD. ABDOMEN: Soft, non-tender +bs EXTREMITIES: No edema. Non-tender. SKIN: No rashes or lesions. Warm. NEUROLOGIC: Unable to tandem walk, difficulty balancing one leg PSYCHIATRIC: Cooperative. Appropriate mood and affect COUNT INCLUDES THE [facility] Medical History Salivary gland disorder Multiple falls Back pain History of salivary gland cancer GERD (gastroesophageal reflux disease) TIA (transient ischemic attack) Asthma Anxiety High cholesterol OA (osteoarthritis) Mucoepidermoid carcinoma Depression Thyroid nodule Diabetes mellitus Rheumatoid arthritis Gout Arthritis Allergies Surgical History History of back surgery Hx of repair of right rotator cuff Hx of partial thyroidectomy Family History Mother HTN (hypertension) Social History Housing: House Are you a primary direct care counselor to a significant other at home: No Do you presently have visiting nurse or other home services: No Alcohol intake: current Alcohol intake frequency: holidays/special occasions only Patient Tobacco Use Status: Former Tobacco user Cigarette Packs Per Day: 1 Years Smoked: 25, quit 2004, started around age 17, 2PPD e-Cigarette/Vaping Use: Never Used Second Hand Smoke Exposure: No service: Yes Current occupational status: retired Cognitive needs: No Hearing needs: No Vision needs: No Questionnaire Thrive Questionnaire Date Thrive assessed: 10/31/24 TIMO-7 AMB Questionnaire TIMO-7 Date TIMO - 7 assessed: 07/05/24 Source: Developed by Drs. Min De La Rosa, Sharlene Burris, Mau Morales and colleagues, with an educational cl from [employer]. Physical exam (Primary Care) Vital Signs: Last Vital Signs Pulse 64 12/20/24 13:42 Resp 14 12/20/24 13:42 BP 108/66 12/20/24 13:42 Pulse Ox 94 12/20/24 13:42 Oxygen Delivery Method Room Air 12/20/24 13:42 BMI result Body Mass Index 33.0 Tobacco/Smoking Status: Tobacco use Status Tobacco use date assessed 02/17/24 12/20/24 13:39 Patient Tobacco Use Status Former Tobacco user 12/20/24 13:39 e-Cigarette/Vaping Use Never Used 12/20/24 13:39 Thrive Assessment: Date of Thrive Assessment Date Thrive assessed 10/31/24 12/20/24 13:39 Coding Level of Care Code Est Pt Level 4 (02494) Diagnoses Frequent falls R29.6 Centrilobular emphysema J43.2 COPD type: emphysema Emphysema type: centrilobular Abnormal CT scan, kidney R93.429 Arthritis M19.90 Assessment & Plan Assessment & Plan (1) Frequent falls: Code(s): R29.6 - Repeated falls Category: Medical Plan: referral pending neurology. Carotid duplex this month (2) COPD (chronic obstructive pulmonary disease): Code(s): J44.9 - Chronic obstructive pulmonary disease, unspecified Category: Medical Qualifiers: COPD type: emphysema Emphysema type: centrilobular Qualified Code(s): J43.2 - Centrilobular emphysema Plan: stable on current medications. continue pulm follow up (3) Abnormal CT scan, kidney: Code(s): R93.429 - Abnormal radiologic findings on diagnostic imaging of unspecified kidney Category: Medical Plan: following urology. pending procedure (4) Arthritis: Comment: continue chronic opioid therapy. continue f/up rheumatology Code(s): M19.90 - Unspecified osteoarthritis, unspecified site Category: Medical Plan: stable Orders: Orders Hemoglobin A1c 12/20/24 E11.42 - Type 2 diabetes mellitus with diabetic polyneuropathy Microalbumin, Random (w Creat) 12/20/24 E11.42 - Type 2 diabetes mellitus with diabetic polyneuropathy Comprehensive Met. Panel 12/20/24 E11.42 - Type 2 diabetes mellitus with diabetic polyneuropathy TSH reflex Free T4 12/20/24 E11.42 - Type 2 diabetes mellitus with diabetic polyneuropathy Medications: Refilled oxycodone 10 mg PO Q4H PRN 168 tabs 0RF pain G89.29 - Other chronic pain, M05.79 - Rheumatoid arthritis with rheumatoid factor of multiple sites without organ or systems involvement, M54.9 - Dorsalgia, unspecified
[2024-12-20 13:42] VITALS: BP 108/66; PULSE 64; RESP 14; O2SAT 94; BMI 33.0
--- OUTSIDE RECORDS SUMMARY | 2024-12-20 16:49 | XMS_ITS | Clinical Summary ---
Author Organization [facility] Address [address] [place] [address] Care Team Providers Care Chiller Tender Name Role Phone Aditi Nguyen MD Primary Care Provider [phone] Surgical History Surgery Date Site/Laterality Comments BACK [...] benign OTHER SURGICAL HISTORY 05/07/2018 Right PROCEDURE: [place] EXC PRTD JOVITA/PRTD GLND LAT LOBE W/O [...] Chronic diastolic CHF (conge stive heart failure) ([facility]/HCC) 09/12/2015 DX:Chronic diastolic CHF (congestive heart failure) ([facility]) Osteoarthritis 08/26/2016 DX:Osteoarthriti s Family History Medical [...] age to complete this topic Care Teams Chiller Tender Relationship Specialty Start Date End Date Aditi Nguyen MD PCP - General Internal Medicine 08/19/15
== END 2024-12-20 14:10 | disposition home or self-care (01) ==
PROVIDERS: PCP Internal Medicine; Visit Provider Internal Medicine
DX: R29.6 Repeated falls (principal); J43.2 Centrilobular emphysema; R93.429 Abnormal radiologic findings on diagnostic imaging of unspecified kidney; M19.90 Unspecified osteoarthritis, unspecified site

== ENCOUNTER → 2024-12-20 13:23 | Outpatient (BNVA) | payer MEDICARE, OTHER, SELFPAY | PROVIDERS: PCP Internal Medicine; Visit Provider Internal Medicine | DX: R29.6 Repeated falls (principal); J43.2 Centrilobular emphysema; R93.429 Abnormal radiologic findings on diagnostic imaging of unspecified kidney; M19.90 Unspecified osteoarthritis, unspecified site | CPT/HCPCS: 99212 ==

== ENCOUNTER 2024-12-20 14:14 | Outpatient (REF) | payer MEDICARE, OTHER, SELFPAY ==
--- OUTSIDE RECORDS SUMMARY | 2024-12-20 17:59 | XMS_ITS | Clinical Summary ---
Author Organization [facility] Address [address] [place] [address] Care Team Providers Care Database Security Expert Name Role Phone Aditi Nguyen MD Primary Care Provider [phone] Surgical History Surgery Date Site/Laterality Comments BACK [...] benign OTHER SURGICAL HISTORY 05/07/2018 Right PROCEDURE: [place] EXC PRTD JOVITA/PRTD GLND LAT LOBE W/O [...] Chronic diastolic CHF (conge stive heart failure) ([facility]/HCC) 09/12/2015 DX:Chronic diastolic CHF (congestive heart failure) ([facility]) Osteoarthritis 08/26/2016 DX:Osteoarthriti s Family History Medical [...] age to complete this topic Care Teams Database Security Expert Relationship Specialty Start Date End Date Aditi Nguyen MD PCP - General Internal Medicine 08/19/15
[2024-12-20 18:39] LABS: Estimated Average Glucose 126 mg/dL
[2024-12-20 19:00] LABS: Alanine Aminotransferase 23 U/L (0-31); Alkaline Phosphatase 70 U/L (39-117); Anion Gap 15 (12-20); Aspartate Amino Transferase 31 U/L (5-31); Bilirubin Total 0.7 mg/dL (0.0-1.0); Blood Urea Nitrogen 21 mg/dL (9-16); Calcium 9.3 mg/dL (8.4-10.2); Carbon Dioxide 28 mmol/L (22-29); Chloride 99 mmol/L (96-108); Estimated Glomerular Filt Rate 52; Glucose Random 104 mg/dL (60-115); Sodium 138 mmol/L (135-145)
[2024-12-20 19:01] LABS: TSH reflex Free T4 2.21 uIU/mL (0.32-4.0)
[2024-12-20 19:11] LABS: Creatinine Urine 240.15 mg/dL
[2024-12-20 19:22] LABS: Microalbum/Creatinine Ratio Ur 607.5 ug/mg cr (<30)
== END 2024-12-20 14:15 | disposition home or self-care (01) ==
LOC: HO.WFDLDS 14:14
PROVIDERS: Visit Provider Internal Medicine
DX: R29.6 Repeated falls (principal); J43.2 Centrilobular emphysema; R93.429 Abnormal radiologic findings on diagnostic imaging of unspecified kidney; M19.90 Unspecified osteoarthritis, unspecified site; E11.42 Type 2 diabetes mellitus with diabetic polyneuropathy; M05.79 Rheumatoid arthritis with rheumatoid factor of multiple sites without organ or systems involvement; G89.29 Other chronic pain; M54.9 Dorsalgia, unspecified; Z79.891 Long term (current) use of opiate analgesic
CPT/HCPCS: 36415; 80053; 82043; 82570; 83036; 84443; 99212

== ENCOUNTER 2024-12-21 11:54 | Day surgery (SDC) | payer MEDICARE, OTHER, SELFPAY ==
[2024-11-24 10:04] VITALS: BMI 31.9
--- OUTSIDE RECORDS SUMMARY | 2024-12-13 16:40 | XMS_ITS | Clinical Summary ---
Author Organization [facility] Address [address] [place] [address] Care Team Providers Care Glaciologist Name Role Phone Aditi Nguyen MD Primary Care Provider [phone] Surgical History Surgery Date Site/Laterality Comments BACK SURGERY PROCEDURE: HISTORICAL BACK SURGERY; COMMENT: x 5 Dr Rapp has hardware TUBAL LIGATION PROCEDURE: HISTORICAL TUBAL LIGATION WISDOM TOOTH EXTRACTION PROCEDURE: HISTORICAL WISDOM TEETH EXTRACTION BREAST LUMPECTOMY Left PROCEDURE: HISTORICAL BREAST LUMPECTOMY; COMMENT: upper outer OTHER SURGICAL HISTORY 05/27/2017 Right PROCEDURE: HISTORICAL SUBTOTAL THYROIDECTOMY; COMMENT: 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 Collins Medical History Medical History Date Comments High cholesterol DX:High cholest chaitanya HTN (hypertension) DX:HTN (hyper tension) LBP (low back pain) DX:LBP (low back pain); COMMENT: surgery x5 Dr Rapp; Neurontin 600 KD; Robaxin DJD (degenerative joint disease) DX:DJD (degenerative joint disease); COMMENT: shoulder, neck, back, knees Obesity DX:Obesity Multiple drug allergies DX:Multi ple drug allergies Pain of left heel DX:Pain of lef t heel; COMMENT: Heel spur Anxiety DX:Anxiety Depressive disorder, not els ewhere classified DX:Depressive disorder, not elsewhere classified Rosacea DX:Rosacea Chronic pain DX:Chronic pain Type II or unspecified type diabetes mellitus without mention of complication, not stated as uncontrolled DX:Type II or unspecified ty pe diabetes mellitus without mention of complication, not stated as uncontrolled; COMMENT: Diet controlled Herpes labialis DX:Herpes labial is Allergic rhinitis DX:Allergic rh initis Gout DX:Gout Back pain DX:Back pain Anemia DX:Anemia Shingles DX:Shingles; COM MENT: Left back Abnormal stress test 07/18/2015 DX:Abnormal stress test Gouty arthritis of toe 08/06/2015 DX:Gouty arthritis of toe Chronic diastolic CHF (conge stive heart failure) ([facility]) 09/12/2015 DX:Chronic diastolic CHF (congestive heart failure) ([facility]) Osteoarthritis 08/26/2016 DX:Osteoarthriti s Family History Medical History Relation Name Comments Arthritis Brother 1 Arthritis Father Arthritis Mother Other: Other Mother ESRD Arthritis Sister 1 Relation Name Status Comments Brother 1 Brother 2 Alive DM, heart, back , neck pain Daughter Alive Healthy Father (Age 72) Lung Disea se, Heart prolem, Heart Attack Maternal Grandfather Maternal Grandmother Mother Alive 80 yrs old , Ki dae problem - dialysis Paternal Grandfather Paternal Grandmother [place] Sister 1 Sister 2 Alive kidney cancer, DM Sister 3 Alive ovarian cancer Sister 4 Alive psych Sister 5 Alive DM Sister 6 Alive DM Sister 7 Heart problem Son 1 Alive Healthy Son 2 Alive Healthy Social History Tobacco Use Types Packs/Day Years Used Date Smoking Tobacco: Former Cigarettes 1.5 19.9 S tarted: 01/29/2005 Smokeless Tobacco: Never Alcohol Use Standard Drinks/Week Comments No 0 (1 standard drink = 0.6 oz pur e alcohol) Comments Unknown Sex and Gender Information Value Date Recorded Sex Assigned at Not on file Legal Sex Female 5:38 AM EST Gender Identity Not on file Sexual Orientation Not on file Obstetrics History Plan of Treatment Health Maintenance Due Date Last Done Comments Breast Cancer Screening 1955 Zoster Vaccines (1 of 2) 01/29/2004 Pneumococcal Vaccine: 50+ Years (2 of 2 - PPSV23) 09/13/2020 09/13/2019 DTaP,Tdap,and Td Vaccines (2 - Td or Tdap) 05/28/2022 05/28/2012 COVID-19 Vaccine (1 - 2023- season) 2024 Influenza Vaccine (#1) 2024 9, 07/08/2018, 07/29/2017, Additional history exists RSV Immunization Patients 60+ Years Old (1 - 1-dose 75+ series) 2029 HIB Vaccines Aged Out No longer eligi ble based on patient's age to complete this topic HPV Vaccines Aged Out No longer eligi ble based on patient's age to complete this topic Hepatitis A Vaccines Aged Out No long er eligible based on patient's age to complete this topic Hepatitis B Vaccines Aged Out No long er eligible based on patient's age to complete this topic IPV Vaccines Aged Out No longer eligi ble based on patient's age to complete this topic MMR Vaccines Aged Out No longer eligi ble based on patient's age to complete this topic Meningococcal ACWY Vaccine Aged Out N o longer eligible based on patient's age to complete this topic Meningococcal B Vacine Aged Out No lo nger eligible based on patient's age to complete this topic RSV Immunization Patients Under 20 months Aged Out No longer eligible based on patient's age to complete this topic Varicella Vaccines Aged Out No longer eligible based on patient's age to complete this topic Care Teams Glaciologist Relationship Specialty Start Date End Date Aditi Nguyen MD PCP - General Internal Medicine 08/19/15
[2024-12-21] VITALS (13 sets, daily range): BP systolic 122–152; BP diastolic 46–92; PULSE 64–68; RESP 16–20; TEMP 36.2–36.7; O2SAT 87–96
--- NOTE | ~2024-12-21 | CT_ITS ---
CT-guided left renal mass percutaneous cryoablation COMPLICATIONS: None ESTIMATED BLOOD LOSS: < 5 ml CONTRAST: None SEDATION: SEDATION SERVICES PROVIDED BY ANESTHESIA AND IS RECORDED SEPARATELY PROCEDURE NOTE: The procedure, risks, benefits, and alternatives were carefully explained to the patient and written informed consent was obtained. The patient was placed prone on the CT table. A timeout was performed. A limited CT of the abdomen was performed which demonstrated the left upper pole mass. A site was selected on the left lower back and the area was sterilely prepped and draped. Under a combination of CT and ultrasound guidance, a [employer] cryoprobe was inserted percutaneously into the center of the left middle renal mass. We also elected to perform hydrodissection in order to separate the adjacent bowel. We inserted a 4 [employer] catheter percutaneously entered instilled saline mixed with contrast. Cryoablation was then performed using a 10 minute freeze, 6 minute active thaw, 10 minute freeze cycle. Intermittent CT images were obtained demonstrating adequate ice ball with no evidence of risk to adjacent structures. The cryoprobe and Yueh centesis catheter catheter were then removed . Post intervention CT images demonstrate no evidence of bleeding or other complication. A dressing was applied. The patient was stable after the procedure and was transferred to the post anesthesia care unit. CT/CT Guided Cryo Ablation Renal Impression: Image guided percutaneous cryoablation of left renal mass Electronically signed by: Rex Henson MD 12/21/2024 04:10 PM LYNETTE
--- NOTE | 2024-12-21 13:11 | PC.NURSE ---
lab by bedside. texted twice.
--- NOTE | 2024-12-21 13:21 | MHC.SHP ---
Pre-Procedural Eval Section A - 24 Hr Update-Section A only Date of Service: 12/21/24 Section B - Complete if H&P > 30 days Chief Complaint: CRYO, KIDNEY LESION Details of Present Illness: 69 y/o female with a left 1.7 cm renal mass. Urology requested cryoablation. Relevant Family History (Specify if Yes): No Relevant Social History: None Present Medications: see Short Stay Collaborative assessment Medical History: Significant History History of Previous Operations: Relevant previous surgery/procedure and date(s) Allergies: Allergies Allergy/AdvReac Type Severity Reaction Status Date / Time amoxicillin [From Augmentin] Allergy Severe Angioedema Verified 12/21/24 12:54 clarithromycin [From Biaxin] Allergy Severe Angioedema Verified 12/21/24 12:54 clavulanic acid Allergy Severe Angioedema Verified 12/21/24 12:54 [From Augmentin] erythromycin base Allergy Severe Angioedema Verified 12/21/24 12:54 penicillin G Allergy Severe shock Verified 12/20/24 13:41 polyethylene glycol 3350 Allergy Severe Angioedema Verified 12/21/24 12:54 sulfadiazine Allergy Severe Angioedema Verified 12/21/24 12:54 tetracycline Allergy Severe Angioedema Verified 12/21/24 12:54 tramadol Allergy Severe vomit Verified 12/21/24 12:54 venlafaxine [From Effexor] Allergy Severe Angioedema Verified 12/21/24 12:54 tizanidine Allergy Mild unknown Verified 12/20/24 13:41 ciprofloxacin Allergy Unknown Unknown Verified 12/20/24 13:41 adhesive bandaid Allergy Severe Blister Uncoded 12/21/24 12:54 chapstick Allergy Severe unknown Uncoded 12/21/24 12:56 tania Allergy Severe Rash Uncoded 12/21/24 12:56 Review of Systems Sugical H&P ROS: Negative: Constitution, Cardiovascular and Respiratory Exam Surgical H&P Exam: Normal: Heart, Normal: Lungs, Normal: Abdomen, Normal: Skin and Normal: Neurological Plan 69 y/o female with left 1.7 cm renal mass -CT left renal mass cryoablation. Time Spent With Patient Time: Total time managing care of this patient today ____ minutes.
[2024-12-21 13:22] LABS: MANUAL DIFF FLAG NO
[2024-12-21 13:25] LABS: Basophils Absolute Auto 0.1 X10*3/uL (0.0-0.2); Eosinophils Absolute Auto 0.5 X10*3/uL (0.0-0.4); Eosinophils Percent Auto 4.8 % (0-4); Hematocrit 49.7 % (37.0-47.0); Hemoglobin 16.2 g/dl (12.0-16.0); Imm Gran Abs Auto 0.03 X10*3/uL (0.00-0.03); Imm Gran Pct Auto 0.3 % (0.0-0.4); Lymphocytes Absolute Auto 2.5 X10*3/uL (1.2-4.9); Mean Corpuscular HGB Conc 32.6 g/dl (31.0-35.0); Mean Corpuscular Hemoglobin 26.7 pg (27.0-33.0); Mean Corpuscular Volume 81.9 fL (80.0-98.0); Mean Platelet Volume 10.4 fL (9.4-12.3); Monocytes Absolute Auto 1.3 X10*3/uL (0.1-1.2); Monocytes Percent Auto 12.8 % (2-11); Neutrophils Absolute Auto 5.9 x10*3/uL (2.0-8.3); Neutrophils Percent Auto 57.1 % (45-73); Platelet Count 301 X10*3/uL (160-400); Red Blood Count 6.07 X10*6/uL (4.20-5.50); White Blood Count 10.3 X10*3/uL (4.8-10.8)
[2024-12-21 13:30] LABS: Prothrombin Time 11.6 SEC (10.9-12.4)
[2024-12-21 13:32] LABS: Partial Thromboplastin Time 33.2 SEC (26.0-36.8)
--- NOTE | 2024-12-21 13:32 | P.CONAN_ITS ---
Documented by User: Alisha Nascimento NP 12/20/24 14:10 HPI - Anesthesia Eval Consult details Narrative: 69yo F for Kidney Cryo-Ablation Hold 4 Hrs Follows [facility] [place] pulmo for COPD - stable and well controlled at 09/2024 office visit [facility] Active Problems Active Problems: All Active Problems Abnormal CT scan, kidney (Acute) Syncope (Acute) Frequent falls (Acute) Chronic back pain (Acute) Kidney lesion (Acute) Grief (Acute) Reaction, drug, adverse (Acute) Tremor (Acute) Hypertension (Acute) Cervical lymphadenopathy (Acute) Lung nodule (Acute) Adrenal adenoma (Acute) Hospital discharge follow-up (Acute) COPD (chronic obstructive pulmonary disease) (Acute) Fatigue (Acute) Enlarged lymph node (Acute) Nephrolithiasis (Acute) Microscopic hematuria (Acute) Arthritis (Acute) Rheumatoid arthritis (Acute) Diabetes mellitus (Acute) Thyroid nodule (Acute) Depression (Acute) Mucoepidermoid carcinoma (Acute) OA (osteoarthritis) (Acute) High cholesterol (Acute) Anxiety (Acute) Past Medical History Medical History (Updated 12/21/24 @ 12:57 by Priscila Mayen RN) Salivary gland disorder Multiple falls Back pain History of salivary gland cancer GERD (gastroesophageal reflux disease) TIA (transient ischemic attack) Asthma Anxiety High cholesterol OA (osteoarthritis) Mucoepidermoid carcinoma Depression Thyroid nodule Diabetes mellitus Rheumatoid arthritis Gout Arthritis Allergies Family History Family History Mother HTN (hypertension) Surgical History Surgical History History of back surgery Hx of repair of right rotator cuff Hx of partial thyroidectomy Social History Social History (Updated 12/20/24 @ 14:16 by Anastasiya Francisco CMA) Housing: House Are you a primary daycare manager to a significant other at home: No Do you presently have visiting nurse or other home services: No Alcohol intake: current Alcohol intake frequency: holidays/special occasions only Patient Tobacco Use Status: Former Tobacco user Cigarette Packs Per Day: 1 Years Smoked: 25, quit 2004, started around age 17, 2PPD e-Cigarette/Vaping Use: Never Used Second Hand Smoke Exposure: No Use of substances other than those prescribed or required for medical reasons: No Have you been hit, kicked, punched, or otherwise hurt by someone within the past year? If so, by whom?: No Advance Directives: No Advance Directives Information Provided: Yes Advance Directives on File: No Recently lost weight without trying: No Eating poorly because of decreased appetite: No Nutrition Risks: No Nutritional Risk Patient : No : No Poor oral hygiene: Yes (full upper and lower dentures) service: Yes Current occupational status: retired Cognitive needs: No Hearing needs: No Vision needs: No Meds Allergies Allergy/AdvReac Type Severity Reaction Status Date / Time amoxicillin [From Augmentin] Allergy Severe Angioedema Verified 12/21/24 12:54 clarithromycin [From Biaxin] Allergy Severe Angioedema Verified 12/21/24 12:54 clavulanic acid Allergy Severe Angioedema Verified 12/21/24 12:54 [From Augmentin] erythromycin base Allergy Severe Angioedema Verified 12/21/24 12:54 penicillin G Allergy Severe shock Verified 12/20/24 13:41 polyethylene glycol 3350 Allergy Severe Angioedema Verified 12/21/24 12:54 sulfadiazine Allergy Severe Angioedema Verified 12/21/24 12:54 tetracycline Allergy Severe Angioedema Verified 12/21/24 12:54 tramadol Allergy Severe vomit Verified 12/21/24 12:54 venlafaxine [From Effexor] Allergy Severe Angioedema Verified 12/21/24 12:54 tizanidine Allergy Mild unknown Verified 12/20/24 13:41 ciprofloxacin Allergy Unknown Unknown Verified 12/20/24 13:41 adhesive bandaid Allergy Severe Blister Uncoded 12/21/24 12:54 chapstick Allergy Severe unknown Uncoded 12/21/24 12:56 tania Allergy Severe Rash Uncoded 12/21/24 12:56 Home Medications ?Medication ?Instructions ?Recorded ?Confirmed ?Last Taken ?Type fluticasone propionate 50 2 spray intranasal DAILY 02/17/24 11/24/24 12/21/24 History mcg/actuation nasal spray,suspension leflunomide 20 mg tablet 20 mg PO BEDTIME 02/17/24 11/24/24 Unknown History magnesium citrate,mag oxide 250 mg 250 mg PO BEDTIME 02/17/24 11/24/24 Unknown History capsule aspirin 81 mg tablet,delayed 324 mg PO QNOON 07/05/24 11/24/24 12/12/24 History release (Adult Aspirin Regimen) cholecalciferol (vitamin D3) 125 125 mcg PO DAILY 10/31/24 11/24/24 Unknown History mcg (5,000 unit) capsule omeprazole 40 mg capsule,delayed 40 mg PO BID 11/11/24 11/24/24 12/21/24 History release acetaminophen 650 mg 650 mg PO Q8H 11/24/24 11/24/24 Unknown History tablet,extended release amitriptyline 25 mg tablet 25 mg PO BEDTIME 11/24/24 11/24/24 Unknown History duloxetine 60 mg capsule,delayed 60 mg PO BEDTIME 11/24/24 11/24/24 Unknown History release loratadine 5 mg-pseudoephedrine ER 1 tab PO Q12H PRN Allergy Symptoms 11/24/24 11/24/24 Unknown History 120 mg tablet,extended release,12hr (Alavert D-12 Allergy-Sinus) mupirocin calcium 2 % topical cream 1 appl topical BID PRN Dry Skin 11/24/24 11/24/24 Unknown History Exam Height,Weight and Vital Signs: Height 5 ft 3.5 in Weight 83.007 kg Pertinent Lab Results Pertinent Lab Results: [facility] 09/2024 and 06/2024 [place] Narrative Narrative: EKG 06/2024 Ventricular Rate: 89 BPM Atrial Rate: 68 BPM P-R Interval: 168 ms QRS Duration: 70 ms Q-T Interval: 388 ms QTC Calculation(Bazett): 472 ms P Dewy Rose: 48 degrees R Dewy Rose: -22 degrees T Dewy Rose: 37 degrees Sinus rhythm Moderate voltage criteria for LVH, may be normal variant Borderline ECG When compared with ECG of 03-FEB-2023 13:20, No significant change Confirmed by ZHEN BUTLER, [facility] ([id number]) on 06/30/2024 8:51:38 AM ECHO 2022 Summary The left atrial size is at the upper limit of normal. The right ventricle is mildly dilated. The right ventricular wall thickness is normal. Right ventricular systolic function is normal. The left ventricular size is normal. Left ventricular wall thickness is normal. The LV systolic function is normal . The left ventricular ejection fraction is 55-60 %. There are no regional wall motion abnormalities. There is no doppler evidence of increased filling pressures. There is mild pulmonary hypertension. The pulmonary artery systolic pressure estimation is 40-45 mmHg. Documented by User: Aisha Jacob DO 12/21/24 13:33 PMFSH Past Medical History Medical History (Updated 12/21/24 @ 12:57 by Priscila Mayen RN) Salivary gland disorder Multiple falls Back pain History of salivary gland cancer GERD (gastroesophageal reflux disease) TIA (transient ischemic attack) Asthma Anxiety High cholesterol OA (osteoarthritis) Mucoepidermoid carcinoma Depression Thyroid nodule Diabetes mellitus Rheumatoid arthritis Gout Arthritis Allergies Family History Family History Mother HTN (hypertension) Family history of problems with anesthesia: No Surgical History Surgical History History of back surgery Hx of repair of right rotator cuff Hx of partial thyroidectomy History of Problems with Anesthesia: No Social History Social History (Updated 12/20/24 @ 14:16 by Anastasiya Francisco CMA) Housing: House Are you a primary daycare manager to a significant other at home: No Do you presently have visiting nurse or other home services: No Alcohol intake: current Alcohol intake frequency: holidays/special occasions only Patient Tobacco Use Status: Former Tobacco user Cigarette Packs Per Day: 1 Years Smoked: 25, quit 2004, started around age 17, 2PPD e-Cigarette/Vaping Use: Never Used Second Hand Smoke Exposure: No Use of substances other than those prescribed or required for medical reasons: No Have you been hit, kicked, punched, or otherwise hurt by someone within the past year? If so, by whom?: No Advance Directives: No Advance Directives Information Provided: Yes Advance Directives on File: No Recently lost weight without trying: No Eating poorly because of decreased appetite: No Nutrition Risks: No Nutritional Risk Patient : No : No Poor oral hygiene: Yes (full upper and lower dentures) service: Yes Current occupational status: retired Cognitive needs: No Hearing needs: No Vision needs: No Meds Allergies Allergy/AdvReac Type Severity Reaction Status Date / Time amoxicillin [From Augmentin] Allergy Severe Angioedema Verified 12/21/24 12:54 clarithromycin [From Biaxin] Allergy Severe Angioedema Verified 12/21/24 12:54 clavulanic acid Allergy Severe Angioedema Verified 12/21/24 12:54 [From Augmentin] erythromycin base Allergy Severe Angioedema Verified 12/21/24 12:54 penicillin G Allergy Severe shock Verified 12/20/24 13:41 polyethylene glycol 3350 Allergy Severe Angioedema Verified 12/21/24 12:54 sulfadiazine Allergy Severe Angioedema Verified 12/21/24 12:54 tetracycline Allergy Severe Angioedema Verified 12/21/24 12:54 tramadol Allergy Severe vomit Verified 12/21/24 12:54 venlafaxine [From Effexor] Allergy Severe Angioedema Verified 12/21/24 12:54 tizanidine Allergy Mild unknown Verified 12/20/24 13:41 ciprofloxacin Allergy Unknown Unknown Verified 12/20/24 13:41 adhesive bandaid Allergy Severe Blister Uncoded 12/21/24 12:54 chapstick Allergy Severe unknown Uncoded 12/21/24 12:56 tania Allergy Severe Rash Uncoded 12/21/24 12:56 Home Medications ?Medication ?Instructions ?Recorded ?Confirmed ?Last Taken ?Type fluticasone propionate 50 2 spray intranasal DAILY 02/17/24 11/24/24 12/21/24 History mcg/actuation nasal spray,suspension leflunomide 20 mg tablet 20 mg PO BEDTIME 02/17/24 11/24/24 Unknown History magnesium citrate,mag oxide 250 mg 250 mg PO BEDTIME 02/17/24 11/24/24 Unknown History capsule aspirin 81 mg tablet,delayed 324 mg PO QNOON 07/05/24 11/24/24 12/12/24 History release (Adult Aspirin Regimen) cholecalciferol (vitamin D3) 125 125 mcg PO DAILY 10/31/24 11/24/24 Unknown History mcg (5,000 unit) capsule omeprazole 40 mg capsule,delayed 40 mg PO BID 11/11/24 11/24/24 12/21/24 History release acetaminophen 650 mg 650 mg PO Q8H 11/24/24 11/24/24 Unknown History tablet,extended release amitriptyline 25 mg tablet 25 mg PO BEDTIME 11/24/24 11/24/24 Unknown History duloxetine 60 mg capsule,delayed 60 mg PO BEDTIME 11/24/24 11/24/24 Unknown History release loratadine 5 mg-pseudoephedrine ER 1 tab PO Q12H PRN Allergy Symptoms 11/24/24 11/24/24 Unknown History 120 mg tablet,extended release,12hr (Alavert D-12 Allergy-Sinus) mupirocin calcium 2 % topical cream 1 appl topical BID PRN Dry Skin 11/24/24 11/24/24 Unknown History Exam Exam Date and Time: 12/21/24 1332 Airway Mallampati Class: I TM Dist: >3cm Neck ROM: Full Denture: Upper and Lower Heart: S1S2 Lungs: CTAB Assessment and Plan Assessment Anesthesia Assessment: Anesthesia Plan Discussed and Chart Reviewed Final Anesthetic Review Family History of Problems with Anesthesia: No History of Problems with Anesthesia: No NPO: Yes ASA Class: III Final Preanesthetic Review: No Changes in Pt Med Stat, Meds/Allgs Chart Reviewed, Consent Obtained/Reviewed and Anes Risks/Benef Reviewed Patient Risk: Intermediate Procedure Risk: Low Anesthetic Plan Anesthetic Plan: GA and Agree w/ Assess. and Plan Disposition: Standard PACU
[2024-12-21] MEDS: iohexoL 350 MG/ML 100 ML INFUS..BTL IV (15:26)
[2024-12-21] MEDS: Acetaminophen 325 MG TABLET 650 MG PO (18:08)
[2024-12-21] MEDS: oxyCODONE HCl Immed Release 5 MG TABLET PO (18:10)
== END 2024-12-21 18:40 | disposition home or self-care (01) ==
PROVIDERS: Physician Assistant Surgical; Student in an Organized Health Care Education/Training Program; PCP Internal Medicine; Visit Provider Urology
DX: N28.89 Other specified disorders of kidney and ureter (principal); R93.429 Abnormal radiologic findings on diagnostic imaging of unspecified kidney; J43.2 Centrilobular emphysema; R91.1 Solitary pulmonary nodule; R06.09 Other forms of dyspnea; Z85.831 Personal history of malignant neoplasm of soft tissue; Z87.891 Personal history of nicotine dependence; E11.9 Type 2 diabetes mellitus without complications; M06.9 Rheumatoid arthritis, unspecified; Z79.82 Long term (current) use of aspirin; Z79.51 Long term (current) use of inhaled steroids; Z79.899 Other long term (current) drug therapy; Z88.0 Allergy status to penicillin; Z88.1 Allergy status to other antibiotic agents; Z88.2 Allergy status to sulfonamides; Z88.5 Allergy status to narcotic agent; L23.1 Allergic contact dermatitis due to adhesives
CPT/HCPCS: 36415; 50593; 77013; 85025; 85610; 85730; 86850; 86900; 86901; C1729; C2618; J1100; J2003; J2004; J2405; J2704; J3010; Q9967

== ENCOUNTER → 2024-12-21 13:46 | Outpatient (BNV) | payer MEDICARE, OTHER, SELFPAY | PROVIDERS: PCP Internal Medicine; Visit Provider Student in an Organized Health Care Education/Training Program | DX: N28.89 Other specified disorders of kidney and ureter (principal) | CPT/HCPCS: 50593; 77013 ==

== ENCOUNTER 2024-12-29 14:37 | Outpatient (REF) | payer MEDICARE, OTHER, SELFPAY ==
--- NOTE | ~2024-12-29 | US_ITS ---
EXAMINATION: BILATERAL CAROTID ULTRASOUND WITH DOPPLER HISTORY: R29.6 - Repeated falls COMPARISON: There are no prior studies for comparison. TECHNIQUE: Real time and Color and Spectral doppler ultrasonography of the carotid and vertebral arteries was performed in multiple planes. FINDINGS: There is a small amount of plaque in both internal carotid arteries. VERTEBRAL FLOW DIRECTION: Antegrade bilaterally. PEAK SYSTOLIC VELOCITIES (in cm/sec): RIGHT: CCA: Prox: 73 Dist: 88 ICA: Prox: 71 Mid: 93 Dist: 106 ICA/CCA Ratio: 1.20 ECA: 121 Peak ICA EDV: 53 LEFT: CCA: Prox: 131 Dist: 91 ICA: Prox: 50 Mid: 82 Dist: 68 ICA/CCA Ratio: 0.63 ECA: 85 Peak ICA EDV: 35 US/US carotid duplex BI IMPRESSION: Findings consistent with 0-49% stenosis of the bilateral internal carotid arteries. Electronically signed by: Min Mills MD 12/29/2024 03:25 PM EDT
--- OUTSIDE RECORDS SUMMARY | 2024-12-29 18:26 | XMS_ITS | Clinical Summary ---
Author Organization [facility] Address [address] [place] [address] Care Team Providers Care Demonstrator Sewing Techniques Name Role Phone Aditi Nguyen MD Primary Care Provider [phone] Surgical History Surgery Date Site/Laterality Comments BACK [...] benign OTHER SURGICAL HISTORY 05/07/2018 Right PROCEDURE: [place] EXC PRTD JOVITA/PRTD GLND LAT LOBE W/O [...] Chronic diastolic CHF (conge stive heart failure) ([facility]) 09/12/2015 DX:Chronic diastolic CHF (congestive heart failure) ([facility]) Osteoarthritis 08/26/2016 DX:Osteoarthriti s Family [...] age to complete this topic Care Teams Demonstrator Sewing Techniques Relationship Specialty Start Date End Date Aditi Nguyen MD PCP - General Internal Medicine 08/19/15
== END 2024-12-29 14:38 | disposition home or self-care (01) ==
LOC: HO.US 14:37
PROVIDERS: PCP Internal Medicine; Visit Provider Internal Medicine
DX: R55 Syncope and collapse (principal); R29.6 Repeated falls
CPT/HCPCS: 93880

== ENCOUNTER → 2024-12-29 14:39 | Outpatient (BNV) | payer MEDICARE, OTHER, SELFPAY | PROVIDERS: PCP Internal Medicine; Visit Provider Radiology Diagnostic Radiology | DX: R55 Syncope and collapse (principal); R29.6 Repeated falls | CPT/HCPCS: 93880 ==

== ENCOUNTER 2025-01-10 14:00 | Outpatient (AMB) | payer MEDICARE, OTHER, SELFPAY ==
--- NOTE | 2025-01-10 14:12 | A.OFFPC_ITS ---
Vital Signs 01/10/25 14:15 Weight 192 lb 2 oz BP 116/74 Blood Pressure Location Lt brachial Position Sitting Respiration 16 Pulse 61 Pulse Source Pulse Oximeter Pulse Oximetry (%) 94 Oxygen Delivery Method Room Air Intake Visit Reasons: Respiratory issues Intake Note: Hospital follow up. Was at [facility] last week with either bronchitis or pneumonia. Allergies amoxicillin [From Augmentin] Allergy (Severe, Verified 01/10/25 14:13) Angioedema clarithromycin [From Biaxin] Allergy (Severe, Verified 01/10/25 14:13) Angioedema clavulanic acid [From Augmentin] Allergy (Severe, Verified 01/10/25 14:13) Angioedema erythromycin base Allergy (Severe, Verified 01/10/25 14:13) Angioedema penicillin G Allergy (Severe, Verified 01/10/25 14:13) shock polyethylene glycol 3350 Allergy (Severe, Verified 01/10/25 14:13) Angioedema sulfadiazine Allergy (Severe, Verified 01/10/25 14:13) Angioedema tetracycline Allergy (Severe, Verified 01/10/25 14:13) Angioedema tramadol Allergy (Severe, Verified 01/10/25 14:13) vomit venlafaxine [From Effexor] Allergy (Severe, Verified 01/10/25 14:13) Angioedema tizanidine Allergy (Mild, Verified 01/10/25 14:13) unknown ciprofloxacin Allergy (Unknown, Verified 01/10/25 14:13) Unknown adhesive bandaid Allergy (Severe, Uncoded 01/10/25 14:13) Blister chapstick Allergy (Severe, Uncoded 01/10/25 14:13) unknown tania Allergy (Severe, Uncoded 01/10/25 14:13) Rash Tobacco use date assessed: 02/17/24 Dental Screening Dental Screen Date: 02/17/24 HPI HPI Comments History of Present Illness Details The patient is a 69 year old female with a past medical history of chronic pain, DDD spine, RA, prediabetes/diabetes, depression/grief, hypertension, hypothyroid presenting for follow up She was hospitalized from January 01-January 04 2025. Presented with cough with worsening congestion and shortness of breath. Oxygen sat 89% on RA. Started on 3L. Leukocytosis 16.9. BNP 1156 troponin . EKG ok. CXR with pulmonary edema versis viral pneumonia though more likely pnuemonia. Started on levaquin. We resumed abx yesterday for increased coughing. Some residual weakness, memory issue. Son is worried about her forgetting medications Notes over the past few months she has had had a handful of episodes where she randomly falls. This has usually happened when she has reached for an item but not bent down or at the waist. She somehow then suddenly falls. She denies any vertigo, dizziness, lightheadedness, palpitations, chest pain. At last visit reviewing recent imaging-CT neck, chest, abdomen. -CT abdomen with benign appearing adrena l adenoma, suspicious appearing renal mass-referred to urology-she was evaluated-has procedure tomorrow -CT neck appears reassuring -CT chest with COPD 1.Patient was hospitalized from 06/30-06/19. Presented with confusion/lethargy. Wad found to have PEYMAN, possible UTI, COPD exacerbation, possible pna. She was hypoxic. She required supplemental oxygen during admission. Almost sent home with 2L at rest and 6L on ambulation but ended up cleared by RT her last day. Lethargy improved with 02 and fluids. She had CT chest with emphysematous changes. She was started on Breo & Spiriva, also on prednisone during admission. Right fissural nodule on CT with recommendation for 3 month f/up, PET, or biopsy. Referred to pulmonary today. Incidental left adrenal adenoma 0.6cm with recommendation for follow up. She was recommended to decrease metolazone to 2.5 MWF, continue potassium, nadolol restarted, continue diltiazem. Cr at discharge 1.3. 2.Over the summer had noticed enlargemen t and discomfort of the lymph nodes in her neck, particularly in the right upper neck. She had issues in the past with abnormality of the parotid. She had u/s of the neck with a few mildly prominent morphologically normal and not pathologically enlarged lymph nodes the right neck at level once. Blood work was fairly reassuring. COPD: She is following with pulmonary. PFTs 2022 Chronic pain: Maintained on chronic opioid therapy. History of spinal surgery. Follows rheumatology. MRI right shoulder-nondiagnostic exam due to severe metal artifiact relating to right shoulder relpacement hardware. Severe atrophy of rotator cuff musculature. CV: On diltiazem, nadolol. Denies chest pain, shortness of breath. Echo 2022 wi th EF 55-60% and PAP 40-45%. Hypothyroid-on levothyroxine 25 mcg daily Diabetes-A1Cs fluctuate btw diabetes and prediabetes. She refuses medications BH: Psych referral recently placed. Son says mom can spend whole days without going out, staying in bed. She thinks she continues to deal with normal grief. She continues on duloxetine Non compliant with preventive care ROS see HPI PHYSICAL EXAM: GENERAL: Alert and oriented x 3. NAD EYES: EOMI. Anicteric. HENT: Moist mucous membranes. LUNGS: Clear to auscultation bilaterally. CARDIOVASCULAR: Regular rate and rhythm. No murmur. No JVD. ABDOMEN: Soft, non-tender +bs EXTREMITIES: No edema. Non-tender. SKIN: No rashes or lesions. Warm. NEUROLOGIC: Unable to tandem walk, difficulty balancing one leg PSYCHIATRIC: Cooperative. Appropriate mood and affect [facility] Medical History Salivary gland disorder Multiple falls Back pain History of salivary gland cancer GERD (gastroesophageal reflux disease) TIA (transient ischemic attack) Asthma Anxiety High cholesterol OA (osteoarthritis) Mucoepidermoid carcinoma Depression Thyroid nodule Diabetes mellitus Rheumatoid arthritis Gout Arthritis Allergies Surgical History History of back surgery Hx of repair of right rotator cuff Hx of partial thyroidectomy Family History Mother HTN (hypertension) Social History Housing: House Are you a primary health care recruiter to a significant other at home: No Do you presently have visiting nurse or other home services: No Alcohol intake: current Alcohol intake frequency: holidays/special occasions only Patient Tobacco Use Status: Former Tobacco user Cigarette Packs Per Day: 1 Years Smoked: 25, quit 2004, started around age 17, 2PPD e-Cigarette/Vaping Use: Never Used Second Hand Smoke Exposure: No service: Yes Current occupational status: retired Cognitive needs: No Hearing needs: No Vision needs: No Questionnaire PHQ-9 Over the last 2 weeks, how often have you been bothered by any of the following problems? 1. Little interest or pleasure in doing things: not at all 2. Feeling down, depressed, or hopeless: several days 3. Trouble falling or staying asleep, or sleeping too much: several days 4. Feeling tired or having little energy: several days 5. Poor appetite or overeating: several days 6. Feeling bad about yourself - or that you are a failure or have let yourself or your family down: not at all 7. Trouble concentrating on things, such as reading the newspaper or watching television: several days Depression Screening Interpretation: Positive Depression Screening Done: Yes [id number] - PHQ-9 Billing: Yes Source: Developed by Drs. Min De La Rosa, Sharlene Burris, Mau Morales and colleagues, with an educational cl from [employer]. Thrive Questionnaire Date Thrive assessed: 10/31/24 TIMO-7 AMB Questionnaire TIMO-7 Date TIMO - 7 assessed: 07/05/24 Source: Developed by Drs. Min De La Rosa, Sharlene Burris, Mau Morales and colleagues, with an educational cl from [employer]. Physical exam (Primary Care) Vital Signs: Last Vital Signs Pulse 61 01/10/25 14:15 Resp 16 01/10/25 14:15 BP 116/74 01/10/25 14:15 Pulse Ox 94 01/10/25 14:15 Oxygen Delivery Method Room Air 01/10/25 14:15 Tobacco/Smoking Status: Tobacco use Status Tobacco use date assessed 02/17/24 01/10/25 14:13 Patient Tobacco Use Status Former Tobacco user 01/10/25 14:13 e-Cigarette/Vaping Use Never Used 01/10/25 14:13 Depression Screening Interpretation: Positive Thrive Assessment: Date of Thrive Assessment Date Thrive assessed 10/31/24 01/10/25 14:13 Coding Level of Care Code TCM Mod MDM <= 14 Days Diagnoses Rheumatoid arthritis involving multiple sites with positive rheumatoid factor M05.79 Rheumatoid arthritis location: multiple sites Rheumatoid factor presence: with rheumatoid factor Type 2 diabetes mellitus with diabetic polyneuropathy, without long-term current use of insulin E11.42 Diabetes mellitus complication detail: with polyneuropathy Diabetes mellitus complication status: with neurologic complications Diabetes mellitus snf insulin use: without petroleum terminal plant operator use Diabetes mellitus type: type 2 Hospital discharge follow-up Z09 Centrilobular emphysema J43.2 COPD type: emphysema Emphysema type: centrilobular Additional Codes PHQ-9 - 35135 - PHQ-9 Billing: Yes ([id number]) Assessment & Plan Assessment & Plan (1) Rheumatoid arthritis: Code(s): M06.9 - Rheumatoid arthritis, unspecified Category: Medical Qualifiers: Rheumatoid arthritis location: multiple sites Rheumatoid factor presence: with rheumatoid factor Qualified Code(s): M05.79 - Rheumatoid arthritis with rheumatoid factor of multiple sites without organ or systems involvement (2) Diabetes mellitus: Code(s): E11.9 - Type 2 diabetes mellitus without complications Category: Medical Qualifiers: Diabetes mellitus complication detail: with polyneuropathy Diabetes mellitus complication status: with neurologic complications Diabetes mellitus snf insulin use: without snf use Diabetes mellitus type: type 2 Qualified Code(s): E11.42 - Type 2 diabetes mellitus with diabetic polyneuropathy (3) Hospital discharge follow-up: Code(s): Z09 - Encounter for follow-up examination after completed treatment for conditions other than malignant neoplasm Category: Medical (4) COPD (chronic obstructive pulmonary disease): Code(s): J44.9 - Chronic obstructive pulmonary disease, unspecified Category: Medical Qualifiers: COPD type: emphysema Emphysema type: centrilobular Qualified Code(s): J43.2 - Centrilobular emphysema Plan hospital discharge follow up hospitalization reviewed, labs reviewed, imaging reviewed Pneumonia/copd exacerbation. She continues to have residual weakness, memory issues -referral to home health placed Grief-referral to psych placed Orders: Referrals Home Health Referral R29.6 - Repeated falls, R41.3 - Other amnesia, Z09 - Encounter for follow-up examination after completed treatment for conditions other than malignant neoplasm Medications: New doxycycline hyclate 100 mg PO BID 20 tabs 0RF
[2025-01-10 14:15] VITALS: BP 116/74; PULSE 61; RESP 16; O2SAT 94
== END 2025-01-10 14:46 | disposition home or self-care (01) ==
LOC: HO.HMCFM 14:01
PROVIDERS: PCP Internal Medicine; Visit Provider Internal Medicine
DX: M05.79 Rheumatoid arthritis with rheumatoid factor of multiple sites without organ or systems involvement (principal); E11.42 Type 2 diabetes mellitus with diabetic polyneuropathy; Z09 Encounter for follow-up examination after completed treatment for conditions other than malignant neoplasm; J43.2 Centrilobular emphysema

== ENCOUNTER → 2025-01-10 14:00 | Outpatient (BNVA) | payer MEDICARE, OTHER, SELFPAY | PROVIDERS: PCP Internal Medicine; Visit Provider Internal Medicine | DX: I10 Essential (primary) hypertension (principal); E11.42 Type 2 diabetes mellitus with diabetic polyneuropathy; E03.9 Hypothyroidism, unspecified; M05.79 Rheumatoid arthritis with rheumatoid factor of multiple sites without organ or systems involvement; J43.2 Centrilobular emphysema; R29.6 Repeated falls; R41.3 Other amnesia; Z09 Encounter for follow-up examination after completed treatment for conditions other than malignant neoplasm | CPT/HCPCS: 96127; 99212 ==

== ENCOUNTER 2025-02-07 10:58 | Outpatient (AMB) | payer MEDICARE, OTHER, SELFPAY ==
--- NOTE | 2025-02-07 11:04 | MHC.OFFVIS ---
Intake Visit Reasons: Cryo- 3m follow up Intake Note: Patient is present for a 3 month follow up/Cryo Urology Med: None Antibiotic Allergy: Penicillin, Amoxicillin, Cipro, Clarithromycin,tetracycline, erythromycin Blood Thinner: Aspirin Private Branch Exchange Repairer Required: No Accompanied by: Self / Same As Patient Allergies amoxicillin [From Augmentin] Allergy (Severe, Verified 02/07/25 11:11) Angioedema clarithromycin [From Biaxin] Allergy (Severe, Verified 02/07/25 11:11) Angioedema clavulanic acid [From Augmentin] Allergy (Severe, Verified 02/07/25 11:11) Angioedema erythromycin base Allergy (Severe, Verified 02/07/25 11:11) Angioedema penicillin G Allergy (Severe, Verified 02/07/25 11:11) shock polyethylene glycol 3350 Allergy (Severe, Verified 02/07/25 11:11) Angioedema sulfadiazine Allergy (Severe, Verified 02/07/25 11:11) Angioedema tetracycline Allergy (Severe, Verified 02/07/25 11:11) Angioedema tramadol Allergy (Severe, Verified 02/07/25 11:11) vomit venlafaxine [From Effexor] Allergy (Severe, Verified 02/07/25 11:11) Angioedema tizanidine Allergy (Mild, Verified 02/07/25 11:11) unknown ciprofloxacin Allergy (Unknown, Verified 02/07/25 11:11) Unknown adhesive bandaid Allergy (Severe, Uncoded 01/10/25 14:13) Blister chapstick Allergy (Severe, Uncoded 01/10/25 14:13) unknown tania Allergy (Severe, Uncoded 01/10/25 14:13) Rash HPI Comments Details: 02/07/25-- History of Present Illness The patient is a 70-year-old female presenting with leg swelling and fluid retention. She is status post cryoablation performed on December 21, which proceeded without complications. Currently, she is experiencing significant swelling in one leg accompanied by fluid retention, noticeable by a hard abdomen. This has been corroborated by her visiting nurse. She reports increased urination and a recent weight gain of six pounds, likely related to fluid retention. Despite these symptoms, she has been unable to arrange an immediate consultation with her primary care physician or Dr. Nguyen. The anticipated primary care appointment is not available until March 06. Efforts to manage these symptoms have included elevating her leg, as suggested during the visit, to reduce the swelling. Despite daily calls and discussions with her primary care provider?s office and physical therapy, immediate intervention has not yet been scheduled or performed. Urinary Symptoms Review Results - Status post cryoablation on December 21, confirmed successful with no complications Discussion Notes I have discussed with the patient the outcome of her recent cryoablation, confirming that the procedure was successful with no immediate issues reported. As part of the follow-up, I plan to schedule a repeat CT scan in approximately three months to ensure proper monitoring of the lesion site. The patient has reported new symptoms of leg swelling and fluid retention, alongside more frequent urination, which we have discussed in detail during the visit. Although I cannot address orthopedic issues, the patient is encouraged to keep her leg elevated to help mitigate swelling and to ensure continuous communication with her primary for timely addressing of any worsening symptoms. A virtual call will be arranged to discuss the follow-up imaging results, unless prior urological issues arise. Plan The outcome of the patient?s cryoablation was reviewed and found to be successful, with a three-month follow-up CT scan planned to monitor any developments. In addressing the patient's leg swelling and fluid retention, I have advised her to keep her leg elevated, which is expected to reduce the edema. She reports having increased urinary frequency but is not currently on diuretics. I encouraged her to pursue further consultation with her primary care physician to manage her fluid retention adequately and informed her about arranging a video call to discuss the results of the pending CT scan unless any changes in her symptoms necessitate an earlier review. Patient Instructions - Keep leg elevated to help reduce swelling. - Monitor for any increase in swelling or new symptoms and contact healthcare provider if they occur. - Discuss leg swelling and recent weight gain with primary care physician as soon as possible. - Remain in communication with primary care regarding next available appointment. - Prepare for a follow-up CT scan in three months and attend scheduled video consultations to discuss results. - Continue to monitor urine output and report any abnormalities noticed. Patient was informed and verbally consented to the use of an ambient scribe for clinic note documentation during this visit. 11/11/24--Krishna is here for evaluation for left renal lesion. She denies abdominal pain. CT - findings: 09/09/24--Bosniak type II cysts, bilaterally. There is a Bosniak type III lesion in the left kidney and no fully evaluated this is suspicious. [facility] Medical History Salivary gland disorder Multiple falls Back pain History of salivary gland cancer GERD (gastroesophageal reflux disease) TIA (transient ischemic attack) Asthma Anxiety High cholesterol OA (osteoarthritis) Mucoepidermoid carcinoma Depression Thyroid nodule Diabetes mellitus Rheumatoid arthritis Gout Arthritis Allergies Surgical History History of back surgery Hx of repair of right rotator cuff Hx of partial thyroidectomy Family History Mother HTN (hypertension) Social History Housing: House Are you a primary residential care facility manager to a significant other at home: No Do you presently have visiting nurse or other home services: No Alcohol intake: current Alcohol intake frequency: holidays/special occasions only Patient Tobacco Use Status: Former Tobacco user Cigarette Packs Per Day: 1 Years Smoked: , quit 2004, started around age 17, 2PPD e-Cigarette/Vaping Use: Never Used Second Hand Smoke Exposure: No service: Yes Current occupational status: retired Cognitive needs: No Hearing needs: No Vision needs: No Results AMB Urinalysis, Automated UA Leukoctes 0 Citlali/uL Last Edit by Anastasiya Goldstein on 02/07/25 16:31 UA Nitrite Negative Last Edit by Anastasiya Goldstein on 02/07/25 16:31 UA Urobilinogen 0.2 mg/dL Last Edit by Anastasiya Goldstein on 02/07/25 16:31 UA Protein 300 mg/dL Last Edit by Anastasiya Goldstein on 02/07/25 16:31 UA pH 6.0 Last Edit by Anastasiya Goldstein on 02/07/25 16:31 UA Blood 0 Sal/uL Last Edit by Anastasiya Goldstein on 02/07/25 16:31 UA Specific [place] 1.015 Last Edit by Anastasiya Goldstein on 02/07/25 16:31 UA Ketone Negative Last Edit by Anastasiya Goldstein on 02/07/25 16:31 UA Bilirubin 0 mg/dL Last Edit by Anastasiya Goldstein on 02/07/25 16:31 UA Glucose 0 mg/dL Last Edit by Anastasiya Goldstein on 02/07/25 16:31 Results Reviewed Results Reviewed: Date of Service: 09/09/24 CT adrenal without and with IV contrast. CLINICAL INFORMATION: Benign neoplasm of unspecified adrenal gland. COMPARISON: No priors. TECHNIQUE: Contiguous axial images through the adrenal glands from the lung bases to the iliac crests using 3 mm collimation without and following the IV contrast administration. Total of 85 cc Omnipaque 350 strength given without reported immediate complications. This CT examination was performed using dose optimization technique as appropriate variously including the following: Automated exposure control Automatic of MA and or KV according to patient size Use of interactive reconstruction technique. DLP: 785 mGy-cm.. FINDINGS: Right adrenal gland: There is a 1 cm low density nodule measuring 20, 86 and 47 Hounsfield units in the noncontrast, portal venous phase and delayed phase respectively. Left adrenal gland: There is a 1 cm low density nodule which measures 9 Hounsfield units in the non-IV contrast, 83 Hounsfield units in the portal venous phase and 47 Hounsfield units in the delayed phase. Ancillary findings: Calcified plaques in the coronary arteries. Cholelithiasis. Multifocal, different sizes exophytic, cortical medullary junction and cortical low density lesions throughout the kidneys. There is a 1.7 cm exophytic heterogeneous enhancing lesion in the posterior midportion of the left kidney Septated low density lesion in the lower pole left kidney and the posterior midportion right kidney. Calcified plaques abdominal aorta without aneurysm or dissection. Enlarged caudate lobe and nodular surface of the liver. Multilevel thoracolumbar spondylosis. Bone marrow inhomogeneity suggesting calcium metabolic disorder. Status post posterior lower lumbar fusion no fully evaluated resulting in incomplete ankylosis. IMPRESSION: Lipid rich adenoma, both adrenal glands. Bosniak type II cysts, bilaterally. There is a Bosniak type III lesion in the left kidney and no fully evaluated this is suspicious. Cholelithiasis. Concerning for cirrhosis. Coronary artery disease and atherosclerosis disease. Assessment & Plan Assessment & Plan (1) Kidney lesion: Code(s): N28.9 - Disorder of kidney and ureter, unspecified Category: Medical Orders: Orders CT abdomen wo/w IV con 3 Months N28.9 - Disorder of kidney and ureter, unspecified AMB Urinalysis Automated Today Z13.9 - Encounter for screening, unspecified Coding Diagnoses Kidney lesion N28.9
--- OUTSIDE RECORDS SUMMARY | 2025-02-07 13:04 | XMS_ITS | Clinical Summary ---
Author Organization [facility] Address [address] [place] [address] Care Team Providers Care Steam Press Tender Name Role Phone Aditi Nguyen MD Primary Care Provider [phone] Surgical History Surgery Date Site/Laterality Comments BACK [...] benign OTHER SURGICAL HISTORY 05/07/2018 Right PROCEDURE: CA EXC PRTD JOVITA/PRTD GLND LAT LOBE W/O [...] Chronic diastolic CHF (conge stive heart failure) ([facility] V24, [facility] V28) 09/12/2015 DX:Chronic diastol ic CHF (congestive heart failure) ([facility]) Osteoarthritis 08/26/2016 DX:Osteoarthriti s Family [...] Mother Alive 80 yrs old , [place] dnduke problem - dialysis Paternal Grandfather Paternal Grandmother [place] Sister 1 Sister 2 Alive kidney cancer, DM Sister 3 Alive ovarian cancer Sister 4 Alive psych Sister 5 Alive DM Sister 6 Alive DM Sister 7 Heart problem Son 1 Alive Healthy Son 2 Alive Healthy Social History Tobacco Use Types Packs/Day Years Used Date Smoking Tobacco: Former Cigarettes 1.5 20 S tarted: 01/29/2005 Smokeless Tobacco: Never Alcohol [...] (1 - 2023- season) 2024 Influenza Vaccine (Season Ended) 2025 09/13/2019, 07/08/2018, 07/29/2017, Additional history exists RSV Immunization Adult Patients (1 - 1-dose 75+ series) 2029 HIB [...] age to complete this topic Meningococcal B Vaccine Aged Out No l onger eligible based on patient's age to complete this topic RSV Immunization Patients Under 20 months Aged Out No longer eligible based on patient's age to complete this topic Varicella Vaccines Aged Out No longer eligible based on patient's age to complete this topic Care Teams Steam Press Tender Relationship Specialty Start Date End Date Aditi Nguyen MD PCP - General Internal Medicine 08/19/15
== END 2025-02-07 11:38 | disposition home or self-care (01) ==
LOC: HO.HUSH 10:59
PROVIDERS: PCP Internal Medicine; Visit Provider Urology
DX: Z13.9 Encounter for screening, unspecified (principal)

== ENCOUNTER → 2025-02-07 10:58 | Outpatient (BNVA) | payer MEDICARE, OTHER, SELFPAY | PROVIDERS: PCP Internal Medicine; Visit Provider Urology | DX: N28.9 Disorder of kidney and ureter, unspecified (principal); Z98.890 Other specified postprocedural states | CPT/HCPCS: 81003; 99212 ==

== ENCOUNTER 2025-02-11 08:44 | Outpatient (REF) | payer MEDICARE, OTHER, SELFPAY ==
--- NOTE | ~2025-02-11 | MR_ITS ---
EXAMINATION: MR BRAIN WITHOUT CONTRAST CLINICAL INFORMATION: Gait disorder. Headache. Right arm/hand numbness and weakness. COMPARISON: None available. TECHNIQUE: MRI of the brain was obtained using routine sequences without contrast. FINDINGS: There is no restricted diffusion seen to suspect any acute ischemic changes. No magnetic susceptibility artifact either to suspect acute or chronic hemorrhagic products. Scattered T2 FLAIR signal changes are seen in periventrical white matter of both cerebral hemispheres. Findings are suggestive of chronic small ischemic changes. However some of the lesions appear perpendicular to the lateral ventricle raising concern for demyelination. The lateral ventricles are symmetrical in size and configuration without enlargement. The sella and the parasellar regions are normal. There is normal flow-void signal seen in major cerebral vasculature. There is moderate pannus/soft tissue density posterior to 2 C1-C2 vertebra slightly deforming the ventral cord but no spinal canal stenosis seen. The cerebellum and midbrain appears unremarkable. Incidental finding of moderate size polyp or retention cyst with surrounding inflammatory changes right axilla. Minimal mucoperiosteal thickening left maxillary sinuses noted. MR/MR head/brain wo con IMPRESSION: No acute intracranial process seen. Bilateral periventricular hyperintense T2 FLAIR signal changes likely chronic small vessel disease however the several lesions are perpendicular lateral ventricle raising concern for demyelination. Correlate clinically. There is moderate pannus of soft tissue density posterior to C1-C2 vertebra mildly deforming the ventral cord but without canal stenosis. Moderate sized polyp with surrounding chronic inflammatory changes right maxillary sinus. Minimal mucoperiosteal thickening left maxillary sinus. Electronically signed by: Daryn Mejia MD 02/14/2025 08:52 AM EDT RP
--- OUTSIDE RECORDS SUMMARY | 2025-02-11 08:49 | XMS_ITS | Clinical Summary ---
Author Organization [facility] Address [address] [place] [address] Care Team Providers Care Vocational Auto Body Instructor Name Role Phone Aditi Nguyen MD Primary Care Provider [phone] Surgical History Surgery Date Site/Laterality Comments BACK [...] benign OTHER SURGICAL HISTORY 05/07/2018 Right PROCEDURE: WI EXC PRTD JOVITA/PRTD GLND LAT LOBE W/O [...] Chronic diastolic CHF (conge stive heart failure) ([facility] V24, [facility] V28) 09/12/2015 DX:Chronic diastol ic CHF (congestive heart failure) ([facility]) Osteoarthritis 08/26/2016 DX:Osteoarthriti s [...] age to complete this topic Care Teams Vocational Auto Body Instructor Relationship Specialty Start Date End Date Aditi Nguyen MD PCP - General Internal Medicine 08/19/15
== END 2025-02-11 08:45 | disposition home or self-care (01) ==
LOC: HO.MRI 08:44
PROVIDERS: PCP Internal Medicine; Visit Provider Psychiatry & Neurology Neurology
DX: R26.9 Unspecified abnormalities of gait and mobility (principal)
CPT/HCPCS: 70551

== ENCOUNTER → 2025-02-11 08:58 | Outpatient (BNV) | payer MEDICARE, OTHER, SELFPAY | PROVIDERS: PCP Internal Medicine; Visit Provider Radiology Diagnostic Radiology | DX: J32.0 Chronic maxillary sinusitis (principal); R90.82 White matter disease, unspecified | CPT/HCPCS: 70551 ==

== ENCOUNTER → 2025-02-21 23:59 | Outpatient (BNV) | payer MEDICARE, OTHER, SELFPAY | PROVIDERS: PCP Internal Medicine; Visit Provider Internal Medicine | DX: M05.79 Rheumatoid arthritis with rheumatoid factor of multiple sites without organ or systems involvement (principal); E11.42 Type 2 diabetes mellitus with diabetic polyneuropathy | CPT/HCPCS: G0180 ==

== ENCOUNTER 2025-02-27 15:24 | Outpatient (AMB) | payer MEDICARE, OTHER, SELFPAY ==
--- OUTSIDE RECORDS SUMMARY | 2025-02-27 15:27 | XMS_ITS | Clinical Summary ---
Author Organization [facility] Address [address] [place] [address] Care Team Providers Care Processing Tech Name Role Phone Aditi Nguyen MD Primary Care Provider [phone] Surgical History Surgery Date Site/Laterality Comments BACK [...] benign OTHER SURGICAL HISTORY 05/07/2018 Right PROCEDURE: UT EXC PRTD JOVITA/PRTD GLND LAT LOBE W/O [...] Chronic diastolic CHF (conge stive heart failure) ([facility] V24, [facility] V28) 09/12/2015 DX:Chronic diastol ic CHF (congestive heart failure) ([facility]) Osteoarthritis 08/26/2016 DX:Osteoarthriti s Family History [...] Used Date Smoking Tobacco: Former Cigarettes 1.5 20.1 S tarted: 01/29/2005 Smokeless Tobacco: Never Alcohol [...] Tdap) 05/28/2022 05/28/2012 COVID-19 Vaccine (1 - season) 2024 Influenza Vaccine (Season Ended) 2025 [...] age to complete this topic Care Teams Processing Tech Relationship Specialty Start Date End Date Aditi Nguyen MD PCP - General Internal Medicine 08/19/15
--- OUTSIDE RECORDS SUMMARY | 2025-02-27 15:27 | XMS_ITS | Clinical Summary ---
Author Organization Unknown Care Team Providers Care Cross Tie Tram Loader Name Role Phone JAZZY BUTLER, FROILAN Unavailable Unavailable EZEKIEL PT, SALLY Unavailable Unavailable SUKHJINDER PATTERN MARKING SUPERVISOR, CHI Unavailable Unavailable CALLI INSURANCE CLAIM APPROVER, FROILAN Unavailable Unavailable Payers Payer Name Policy Type Policy Number Effective Date Expira tion Date MEDICARE.[facility] [id number] Problems Condition Name Condition Details Condition Category Status Onset Date Resolution Date Last Treatment Date Treating Clinician Comments RHEU ARTHRITIS W RHEU FACTOR MULT SITE W/O ORG/SYS INVOLV Active 02-06 00:00: 00 TYPE 2 DIABETES MELLITUS WITH DIABETIC POLYNEUROPAT HY Active 02-06 00:00: 00 OTHER CHRONIC PAIN Active 02-06 00:00: 00 REPEATED FALLS Active 02-06 00:00: 00 OTHER AMNESIA Active 02-06 00:00: 00 CENTRILOBULA R EMPHYSEMA Active 02-06 00:00: 00 OTHER SPECIFIED CHRONIC OBSTRUCTIVE PULMONARY DISEASE Active 02-06 00:00: 00 ESSENTIAL (PRIMARY) HYPERTENSION Active 02-06 00:00: 00 UNSPECIFIED OSTEOARTHRIT IS, UNSPECIFIED SITE Active 02-06 00:00: 00 GOUT, UNSPECIFIED Active 02-06 00:00: 00 DEPRESSION, UNSPECIFIED Active 02-06 00:00: 00 ADJUSTMENT DISORDER WITH DEPRESSED MOOD Active 02-06 00:00: 00 PURE HYPERCHOLEST EROLEMIA, UNSPECIFIED Active 02-06 00:00: 00 POSTPROCEDUR AL HYPOTHYROIDI SM Active 02-06 00:00: 00 GASTRO-ESOPH AGEAL REFLUX DISEASE WITHOUT ESOPHAGITIS Active 02-06 00:00: 00 DEPENDENCE ON SUPPLEMENTAL OXYGEN Active 02-06 00:00: 00 HISTORY OF FALLING Active 02-06 00:00: 00 PERSONAL HISTORY OF NICOTINE DEPENDENCE Active 02-06 00:00: 00 PRSNL HX OF TIA (TIA), AND CEREB INFRC W/O RESID DEFICITS Active 02-06 00:00: 00 Allergies, Adverse Reactions, Alerts Allergy Name Allergy Type Status Severity Reaction(s) Onset Date Inactive Date Treating Clinician Comments CLARITHROMYC IIN Propensity to adverse reactions Active 02-07 08:48: 36 AUGMENTIN Propensity to adverse reactions Active 02-07 08:48: 46 ERYTHROCIN Propensity to adverse reactions Active 02-07 08:48: 59 PENICILLINS Propensity to adverse reactions Active 02-07 08:49: 26 POLYETHYLENE GLYCOLS Propensity to adverse reactions Active 02-07 08:49: 38 SULFADIAZINE Propensity to adverse reactions Active 02-07 08:50: 24 TETRACYCLINE ANALOGUES Propensity to adverse reactions Active 02-07 08:50: 34 TRAMADOL Propensity to adverse reactions Active 02-07 08:50: 44 VENLAFAXINE Propensity to adverse reactions Active 02-07 08:51: 00 TIZANIDINE Propensity to adverse reactions Active 02-07 08:51: 13 CIPROFLOXICI N Propensity to adverse reactions Active 02-07 08:51: 31 ADHESIVE Propensity to adverse reactions Active 02-07 08:51: 51 COBALT GIACOMO Propensity to adverse reactions Active 02-07 08:53: 06 AMOXICILLIN Propensity to adverse reactions Active 02-07 15:11: 13 Medications Ordered Medication Name Filled Medication Name Start Date Stop Date Current Medication? Ordering Clinician Indication Dosage Frequency Signature (SIG) Comments Components oxycodone 10 mg tablet 01-17 00:00: 00 Yes [id number] PAIN Per instruc tions EVERY 4 HOURS NEEDED Per instructio ns EVERY 4 HOURS NEEDED (route: oral) Med Classific ation: Analgesic , Anti-infl ammatory or Antipyret ic doxycycline hyclate 100 mg tablet 01-09 00:00: 00 02-06 00:00 :00 No [id number] Per instruc tions TWICE A DAY Per instructio ns TWICE A DAY (route: oral) Med Classific ation: Anti-Infe ctive Agents amitriptyli ne 25 mg tablet 01-17 00:00: 00 Yes [id number] DEPRESSION 1 tablet DAILY 1 tablet DAILY (route: oral) Med Classific ation: Central Nervous System Agents aspirin 81 mg tablet,caterina yed release 01-17 00:00: 00 Yes [id number] HEART HEALTH 1 tablet DAILY 1 tablet DAILY (route: oral) Med Classific ation: Hematolog ical Agents Breo Ellipta 100 mcg-25 mcg/dose powder for inhalation 01-17 00:00: 00 Yes [id number] ASTHMA 1 inhalat ion DAILY 1 inhalation DAILY (route: inhalation ) Med Classific ation: Respirato ry Therapy Agents Corgard 80 mg tablet 01-17 00:00: 00 Yes [id number] HTN 1 tablet DAILY 1 tablet DAILY (route: oral) Med Classific ation: Cardiovas cular Therapy Agents diltiazem CD 240 mg capsule,ext ended release 24 hr 01-17 00:00: 00 Yes [id number] HTN 1 capsule DAILY 1 capsule DAILY (route: oral) Med Classific ation: Cardiovas cular Therapy Agents duloxetine 60 mg capsule,del ayed release 01-17 00:00: 00 Yes [id number] DEPRESSION 1 capsule DAILY 1 capsule DAILY (route: oral) Med Classific ation: Central Nervous System Agents fluticasone propionate 50 mcg/actuati on nasal spray,suspe nsion 01-17 00:00: 00 Yes [id number] ALLERGIES 2 spray DAILY 2 spray DAILY (route: nasal) Med Classific ation: Respirato ry Therapy Agents gabapentin 300 mg capsule 01-17 00:00: 00 Yes [id number] PAIN 1 capsule 3 TIMES DAILY 1 capsule 3 TIMES DAILY (route: oral) Med Classific ation: Central Nervous System Agents leflunomide 20 mg tablet 01-17 00:00: 00 Yes [id number] DEPRESSION 1 tablet BEDTIME 1 tablet BEDTIME (route: oral) Med Classific ation: Analgesic , Anti-infl ammatory or Antipyret ic levothyroxi ne 25 mcg tablet 01-17 00:00: 00 Yes [id number] THYROID 1 tablet DAILY 1 tablet DAILY (route: oral) Med Classific ation: Endocrine Loratadine- D 10 mg-240 mg tablet,exte nded release 24 hr 01-17 00:00: 00 Yes [id number] ALLERGIES 1 tablet DAILY 1 tablet DAILY (route: oral) Med Classific ation: Respirato ry Therapy Agents magnesium citrate, magnesium oxide 250 mg capsule 01-17 00:00: 00 Yes [id number] SUPPLEMENT 1 capsule DAILY 1 capsule DAILY (route: oral) Med Classific ation: Electroly te Balance-N utritiona l Products omeprazole 40 mg capsule,del ayed release 01-17 00:00: 00 Yes [id number] GERD 1 capsule 2 TIMES DAILY 1 capsule 2 TIMES DAILY (route: oral) Med Classific ation: Gastroint estinal Therapy Agents Spiriva Respimat 1.25 mcg/actuati on solution for inhalation 01-17 00:00: 00 Yes [id number] ASTHMA 2 puff DAILY 2 puff DAILY (route: inhalation ) Med Classific ation: Respirato ry Therapy Agents Tylenol 8 Hour 650 mg tablet,exte nded release 01-17 00:00: 00 Yes [id number] PAIN 1 tablet EVERY 8 HOURS 1 tablet EVERY 8 HOURS (route: oral) Med Classific ation: Analgesic , Anti-infl ammatory or Antipyret ic Vitamin D3 125 mcg (5,000 unit) tablet 01-17 00:00: 00 Yes [id number] SUPPLEMENT 1 tablet DAILY 1 tablet DAILY (route: oral) Med Classific ation: Electroly te Balance-N utritiona l Products Vital Signs Vital Name Observation Time Observation Value Commen ts Temperature 2025-02-22 11:50:00.000 97.3 [degF] Temperature 2025-02-13 10:34:00.000 97.1 [degF] Temperature 2025-02-06 11:39:00.000 97.5 [degF] BMI (%) 2025-02-06 11:55:00.000 34 kg/m2 Height 2025-02-06 11:39:00.000 63 [in_us] Pulse 2025-02-22 11:50:00.000 83 /min Pulse 2025-02-13 10:34:00.000 80 /min Pulse 2025-02-06 11:39:00.000 74 /min O2 Saturation (%) 2025-02-22 11:50:00.000 95 % O2 Saturation (%) 2025-02-13 10:34:00.000 98 % O2 Saturation (%) 2025-02-06 11:39:00.000 92 % Respirations 2025-02-22 11:50:00.000 16 /min Respirations 2025-02-13 10:34:00.000 18 /min Respirations 2025-02-06 11:39:00.000 16 /min Weight (lbs) 2025-02-13 10:39:00.000 190 [lb_av] Weight (lbs) 2025-02-06 11:55:00.000 197 [lb_av] Systolic Blood Pressure 2025-02-22 11:50:00.000 138 mm [Hg] Systolic Blood Pressure 2025-02-13 10:34:00.000 155 mm [Hg] Systolic Blood Pressure 2025-02-06 11:39:00.000 140 mm [Hg] Diastolic Blood Pressure 2025-02-22 11:50:00.000 82 mm [Hg] Diastolic Blood Pressure 2025-02-13 10:34:00.000 82 mm [Hg] Diastolic Blood Pressure 2025-02-06 11:39:00.000 90 mm [Hg] Plan of Treatment Planned Activity Planned Date Details Comments Future Scheduled Test AGENCY MAY PERFORM A RESUMPTION OF CARE VISIT FOLLOWING ANY HOSPITAL ADMISSION. PT TO EVALUATE, OBSERVE / ASSESS, AND MONITOR, PATTERN MARKING SUPERVISOR TO OBSERVE AND MONITOR, PROVIDE SKILLED THERAPEUTIC INTERVENTION, ACTIVITY, EDUCATION, AND TRAINING TO ADDRESS; [code = AGENCY MAY PERFORM A RESUMPTION OF CARE VISIT FOLLOWING ANY HOSPITAL ADMISSION. PT TO EVALUATE, OBSERVE / ASSESS, AND MONITOR, PATTERN MARKING SUPERVISOR TO OBSERVE AND MONITOR, PROVIDE SKILLED THERAPEUTIC INTERVENTION, ACTIVITY, EDUCATION, AND TRAINING TO ADDRESS;] Future Scheduled Test CHAIR APARICIO SFERS (PT/PATTERN MARKING SUPERVISOR) [code = CHAIR TRANSFERS (PT/PATTERN MARKING SUPERVISOR)] Future Scheduled Test PT/PATTERN MARKING SUPERVISOR TO PROVIDE GAIT TRAINING FOR IMPROVED MOBILITY AND /OR TO NORMALIZE GAIT PATTERN [code = PT/PATTERN MARKING SUPERVISOR TO PROVIDE GAIT TRAINING FOR IMPROVED MOBILITY AND /OR TO NORMALIZE GAIT PATTERN] Future Scheduled Test NEUROMUSCU LAR RE-EDUCATION / BALANCE / POSTURAL CONTROL (PT) [code = NEUROMUSCULAR RE-EDUCATION / BALANCE / POSTURAL CONTROL (PT)] Future Scheduled Test THERAPEUTI C EXERCISES AND ESTABLISHING A HOME EXERCISE PROGRAM (PT/PATTERN MARKING SUPERVISOR) [code = THERAPEUTIC EXERCISES AND ESTABLISHING A HOME EXERCISE PROGRAM (PT/PATTERN MARKING SUPERVISOR)] Future Scheduled Test PT/PATTERN MARKING SUPERVISOR TO IDENTIFY FALL RISK FACTORS; EDUCATE THE PATIENT/CAREGIVER ON WAYS TO REDUCE FALL RISK FACTORS AND ESTABLISH HOME EXERCISE PROGRAM TO MINIMIZE FALL RISK. MAY TEACH THE PATIENT FLOOR RECOVERY WHEN CLINICALLY APPROPRIATE [code = PT/PATTERN MARKING SUPERVISOR TO IDENTIFY FALL RISK FACTORS; EDUCATE THE PATIENT/CAREGIVER ON WAYS TO REDUCE FALL RISK FACTORS AND ESTABLISH HOME EXERCISE PROGRAM TO MINIMIZE FALL RISK. MAY TEACH THE PATIENT FLOOR RECOVERY WHEN CLINICALLY APPROPRIATE] Future Scheduled Test PT / PATTERN MARKING SUPERVISOR M AY EDUCATE ON PAIN MANAGEMENT CLINICALLY INDICATED, INCLUDING NON-PHARMACOLOGICAL PAIN REDUCTION TECHNIQUES AND USE OF CRYOTHERAPY OR HEAT UP TO 20 MIN AT A TIME FOR PAIN MANAGEMENT 4 TIMES PER DAY TO LUMBAR SPINE. [code = PT / PATTERN MARKING SUPERVISOR MAY EDUCATE ON PAIN MANAGEMENT CLINICALLY INDICATED, INCLUDING NON-PHARMACOLOGICAL PAIN REDUCTION TECHNIQUES AND USE OF CRYOTHERAPY OR HEAT UP TO 20 MIN AT A TIME FOR PAIN MANAGEMENT 4 TIMES PER DAY TO LUMBAR SPINE.] Goal Patient Goal - WALK BETTER. Goal Provider Goal - Goal Provider Goal - PT STG: PATIENT WILL DEMONSTRATE IMPROVED ABILITY TO PERFORM CHAIR TRANSFERS TO REDUCE THE RISK OF SKIN BREAKDOWN AND FALL RISK FROM CGA TO INDEPENDENT WITHIN 4 WEEKS. Goal Provider Goal - PT LTG: PATIENT WILL DEMONSTRATE IMPROVED AMBULATION FROM CGA TO INDEPENDENT WITHIN 5 WEEKS PT LTG: PATIENT WILL DEMONSTRATE IMPROVE RAMP SKILLS FROM CGA TO INDEPENDENT WITHIN 5 WEEKS TO ALLOW PATIENT TO GET TO AND FROM CAR INDEPENDENTLY. PT LTG: PATIENT WILL DEMONSTRATE INCREASED STRENGTH OF BILAT LES FROM 4-/5 TO 4/5 WITHIN 5 WEEKS IN ORDER TO RETURN TO INDEPENDENT TRANSFER AND AMBULATION SKILLS. PT LTG: PATIENT WILL BE INDEPENDENT WITH IMPLEMENTATION OF HEP WITHIN 5 WEEKS. PT GOAL: PATIENT WILL DEMONSTRATE UNDERSTANDING OF PAIN MANAGEMENT TECHNIQUES EVIDENCED BY REDUCED PAIN IN BACK FROM 8 TO 4 WITHIN 5 WEEKS. Goal Provider Goal - Goal Provider Goal - Goal Provider Goal - PT LTG: PATIENT/CAREGIVER WILL DEMONSTRATE ADHERENCE TO FALL REDUCTION SELF-MANAGEMENT AND REDUCING FALL RISK FACTORS TO MINIMIZE FALL RISK BY END OF EPISODE. Goal Provider Goal - Encounters Start Date/Time End Date/Time Encounter Type Admission Type Attending [facility] Facility Care Department Encounter ID Discharge Date Discharge Status Discharge Condition Discharge Reason Percent Goals Met 2025-02-06 00:00:00 2025-04-06 00:00:00 Outpatient NEW ADMISSION SALLY FALCON [facility] [id number] 7.14
--- OUTSIDE RECORDS SUMMARY | 2025-02-27 15:27 | XMS_ITS | Clinical Summary ---
Author Organization Unknown Care Team Providers Care Inker Name Role Phone JAZZY BUTLER, FROILAN Unavailable Unavailable EZEKIEL PT, SALLY Unavailable Unavailable SUKHJINDER EXECUTIVE CHAIRMAN OF THE BOARD, CHI Unavailable Unavailable CALLI DIRECTOR OF SPEECH PATHOLOGY, FROILAN Unavailable Unavailable Payers Payer Name Policy Type Policy Number Effective Date Expira tion Date MEDICARE.[facility] [id number] Problems Condition Name Condition Details Condition Category [...] 10 mg tablet 01-17 00:00: 00 Yes [id number] PAIN Per instruc tions EVERY 4 HOURS NEEDED Per instructio ns EVERY 4 HOURS NEEDED (route: oral) Med Classific ation: Analgesic , Anti-infl ammatory or Antipyret ic doxycycline hyclate 100 mg tablet 01-09 00:00: 00 02-06 00:00 :00 No [id number] Per instruc tions TWICE A DAY Per instructio ns TWICE A DAY (route: oral) Med Classific ation: Anti-Infe ctive Agents amitriptyli ne 25 mg tablet 01-17 00:00: 00 Yes [id number] DEPRESSION 1 tablet DAILY 1 tablet DAILY (route: oral) Med Classific ation: Central Nervous System Agents aspirin 81 mg tablet,caterina yed release 01-17 00:00: 00 Yes [id number] HEART HEALTH 1 tablet DAILY 1 tablet DAILY (route: oral) Med Classific ation: Hematolog ical Agents Breo Ellipta 100 mcg-25 mcg/dose powder for inhalation 01-17 00:00: 00 Yes [id number] ASTHMA 1 inhalat ion DAILY 1 inhalation DAILY (route: inhalation ) Med Classific ation: Respirato ry Therapy Agents Corgard 80 mg tablet 01-17 00:00: 00 Yes [id number] HTN 1 tablet DAILY 1 tablet DAILY (route: oral) Med Classific ation: Cardiovas cular Therapy Agents diltiazem CD 240 mg capsule,ext ended release 24 hr 01-17 00:00: 00 Yes [id number] HTN 1 capsule DAILY 1 capsule DAILY (route: oral) Med Classific ation: Cardiovas cular Therapy Agents duloxetine 60 mg capsule,del ayed release 01-17 00:00: 00 Yes [id number] DEPRESSION 1 capsule DAILY 1 capsule DAILY (route: oral) Med Classific ation: Central Nervous System Agents fluticasone propionate 50 mcg/actuati on nasal spray,suspe nsion 01-17 00:00: 00 Yes [id number] ALLERGIES 2 spray DAILY 2 spray DAILY (route: nasal) Med Classific ation: Respirato ry Therapy Agents gabapentin 300 mg capsule 01-17 00:00: 00 Yes [id number] PAIN 1 capsule 3 TIMES DAILY 1 capsule 3 TIMES DAILY (route: oral) Med Classific ation: Central Nervous System Agents leflunomide 20 mg tablet 01-17 00:00: 00 Yes [id number] DEPRESSION 1 tablet BEDTIME 1 tablet BEDTIME (route: oral) Med Classific ation: Analgesic , Anti-infl ammatory or Antipyret ic levothyroxi ne 25 mcg tablet 01-17 00:00: 00 Yes [id number] THYROID 1 tablet DAILY 1 tablet DAILY (route: oral) Med Classific ation: Endocrine Loratadine- D 10 mg-240 mg tablet,exte nded release 24 hr 01-17 00:00: 00 Yes [id number] ALLERGIES 1 tablet DAILY 1 tablet DAILY (route: oral) Med Classific ation: Respirato ry Therapy Agents magnesium citrate, magnesium oxide 250 mg capsule 01-17 00:00: 00 Yes [id number] SUPPLEMENT 1 capsule DAILY 1 capsule DAILY (route: oral) Med Classific ation: Electroly te Balance-N utritiona l Products omeprazole 40 mg capsule,del ayed release 01-17 00:00: 00 Yes [id number] GERD 1 capsule 2 TIMES DAILY 1 capsule 2 TIMES DAILY (route: oral) Med Classific ation: Gastroint estinal Therapy Agents Spiriva Respimat 1.25 mcg/actuati on solution for inhalation 01-17 00:00: 00 Yes [id number] ASTHMA 2 puff DAILY 2 puff DAILY (route: inhalation ) Med Classific ation: Respirato ry Therapy Agents Tylenol 8 Hour 650 mg tablet,exte nded release 01-17 00:00: 00 Yes [id number] PAIN 1 tablet EVERY 8 HOURS 1 tablet EVERY 8 HOURS (route: oral) Med Classific ation: Analgesic , Anti-infl ammatory or Antipyret ic Vitamin D3 125 mcg (5,000 unit) tablet 01-17 00:00: 00 Yes [id number] SUPPLEMENT 1 tablet DAILY 1 tablet DAILY [...] TO EVALUATE, OBSERVE / ASSESS, AND MONITOR, EXECUTIVE CHAIRMAN OF THE BOARD TO OBSERVE AND MONITOR, PROVIDE SKILLED THERAPEUTIC INTERVENTION, ACTIVITY, EDUCATION, AND TRAINING TO ADDRESS; [code = AGENCY MAY PERFORM A RESUMPTION OF CARE VISIT FOLLOWING ANY HOSPITAL ADMISSION. PT TO EVALUATE, OBSERVE / ASSESS, AND MONITOR, EXECUTIVE CHAIRMAN OF THE BOARD TO OBSERVE AND MONITOR, PROVIDE SKILLED THERAPEUTIC INTERVENTION, ACTIVITY, EDUCATION, AND TRAINING TO ADDRESS;] Future Scheduled Test CHAIR APARICIO SFERS (PT/EXECUTIVE CHAIRMAN OF THE BOARD) [code = CHAIR TRANSFERS (PT/EXECUTIVE CHAIRMAN OF THE BOARD)] Future Scheduled Test PT/EXECUTIVE CHAIRMAN OF THE BOARD TO PROVIDE GAIT TRAINING FOR IMPROVED MOBILITY AND /OR TO NORMALIZE GAIT PATTERN [code = PT/EXECUTIVE CHAIRMAN OF THE BOARD TO PROVIDE GAIT TRAINING FOR IMPROVED MOBILITY AND /OR TO NORMALIZE GAIT PATTERN] Future Scheduled Test NEUROMUSCU LAR RE-EDUCATION / BALANCE / POSTURAL CONTROL (PT) [code = NEUROMUSCULAR RE-EDUCATION / BALANCE / POSTURAL CONTROL (PT)] Future Scheduled Test THERAPEUTI C EXERCISES AND ESTABLISHING A HOME EXERCISE PROGRAM (PT/EXECUTIVE CHAIRMAN OF THE BOARD) [code = THERAPEUTIC EXERCISES AND ESTABLISHING A HOME EXERCISE PROGRAM (PT/EXECUTIVE CHAIRMAN OF THE BOARD)] Future Scheduled Test PT/EXECUTIVE CHAIRMAN OF THE BOARD TO IDENTIFY FALL RISK FACTORS; EDUCATE THE PATIENT/CAREGIVER ON WAYS TO REDUCE FALL RISK FACTORS AND ESTABLISH HOME EXERCISE PROGRAM TO MINIMIZE FALL RISK. MAY TEACH THE PATIENT FLOOR RECOVERY WHEN CLINICALLY APPROPRIATE [code = PT/EXECUTIVE CHAIRMAN OF THE BOARD TO IDENTIFY FALL RISK FACTORS; EDUCATE THE PATIENT/CAREGIVER ON WAYS TO REDUCE FALL RISK FACTORS AND ESTABLISH HOME EXERCISE PROGRAM TO MINIMIZE FALL RISK. MAY TEACH THE PATIENT FLOOR RECOVERY WHEN CLINICALLY APPROPRIATE] Future Scheduled Test PT / EXECUTIVE CHAIRMAN OF THE BOARD M AY EDUCATE ON PAIN MANAGEMENT CLINICALLY INDICATED, INCLUDING NON-PHARMACOLOGICAL PAIN REDUCTION TECHNIQUES AND USE OF CRYOTHERAPY OR HEAT UP TO 20 MIN AT A TIME FOR PAIN MANAGEMENT 4 TIMES PER DAY TO LUMBAR SPINE. [code = PT / EXECUTIVE CHAIRMAN OF THE BOARD MAY EDUCATE ON PAIN MANAGEMENT CLINICALLY INDICATED, [...] End Date/Time Encounter Type Admission Type Attending [facility] Facility Care Department Encounter ID Discharge Date Discharge Status Discharge Condition Discharge Reason Percent Goals Met 2025-02-06 00:00:00 2025-04-06 00:00:00 Outpatient NEW ADMISSION SALLY FALCON [facility] [id number] 7.14
--- NOTE | 2025-02-27 15:35 | MHC.PC.OV ---
Vital Signs 02/27/25 15:44 Height 5 ft 3 in Weight 191 lb 2 oz BMI 33.9 BP 118/70 Blood Pressure Location Lt brachial Position Sitting Respiration 16 Pulse 68 Pulse Source Pulse Oximeter Pulse Oximetry (%) 91 L Oxygen Delivery Method Room Air Intake Visit Reasons: retaining fluid Intake Note: Fluid retention Pupil Personnel Worker Required: No Allergies amoxicillin [From Augmentin] Allergy (Severe, Verified 02/27/25 15:38) Angioedema clarithromycin [From Biaxin] Allergy (Severe, Verified 02/27/25 15:38) Angioedema clavulanic acid [From Augmentin] Allergy (Severe, Verified 02/27/25 15:38) Angioedema erythromycin base Allergy (Severe, Verified 02/27/25 15:38) Angioedema penicillin G Allergy (Severe, Verified 02/27/25 15:38) shock polyethylene glycol 3350 Allergy (Severe, Verified 02/27/25 15:38) Angioedema sulfadiazine Allergy (Severe, Verified 02/27/25 15:38) Angioedema tetracycline Allergy (Severe, Verified 02/27/25 15:38) Angioedema tramadol Allergy (Severe, Verified 02/27/25 15:38) vomit venlafaxine [From Effexor] Allergy (Severe, Verified 02/27/25 15:38) Angioedema tizanidine Allergy (Mild, Verified 02/27/25 15:38) unknown ciprofloxacin Allergy (Unknown, Verified 02/27/25 15:38) Unknown adhesive bandaid Allergy (Severe, Uncoded 02/27/25 15:38) Blister chapstick Allergy (Severe, Uncoded 02/27/25 15:38) unknown taina Allergy (Severe, Uncoded 02/27/25 15:38) Rash Tobacco use date assessed: 02/27/25 Fall risk assessment: 2 + Falls in past year (Numerous times from April 2024-September 2024. ) Last assessed Fall Risk: 02/27/25 Dental Screening Dental Screen Date: 02/27/25 Did you have a dental visit in the last 12 months?: No Did you have a dental problem in the last 6 months where you did not have access to dental care?: No Was dental information given to patient?: Patient has dentist HPI HPI Comments History of Present Illness Details The patient is a 70 year old female with a past medical history of chronic pain, DDD spine, RA, prediabetes/diabetes, depression/grief, hypertension, hypothyroid presenting for follow up CV: On diltiazem, nadolol. Previously was on loop diuretic and metazolone. For the past month has been retaining fluid and gained quite a bit of weight without dietary changes. She is eating low salt keeping her legs up with some improvement. Denies chest pain, shortness of breath. Echo 2022 with EF 55-60% and PAP 40-45%. Neuro: Notes over the past few months she has had had a handful of episodes where she randomly falls. This has usually happened when she has reached for an item but not bent down or at the waist. She somehow then suddenly falls. She denies any vertigo, dizziness, lightheadedness, palpitations, chest pain. -She recently was seen by neurology but the note is not yet available.MRI brain chronic small vessel disease however the several lesions are perpendicular lateral ventricle raising concern for demyelination. Correlate clinically. COPD: She is following with pulmonary. PFTs 2022 Chronic pain: Maintained on chronic opioid therapy. History of spinal surgery. Follows rheumatology. MRI right shoulder-nondiagnostic exam due to severe metal artifiact relating to right shoulder relpacement hardware. Severe atrophy of rotator cuff musculature. Hypothyroid-on levothyroxine 25 mcg daily Diabetes-A1Cs fluctuate btw diabetes and prediabetes. She refuses medications BH: Psych referral recently placed. Son says mom can spend whole days without going out, staying in bed. She thinks she continues to deal with normal grief. She continues on duloxetine Urologic: Recent successful cyroablation therapy for lesion with repeat CT planned for 3 months This year had CT neck, chest, abdomen. -CT abdomen with benign appearing adrenal adenoma, suspicious appearing renal mass-referred to urology-she was evaluated -CT neck appears reassuring -CT chest with COPD She was hospitalized from January 01-January 04 2025. Presented with cough with worsening congestion and shortness of breath. Oxygen sat 89% on RA. Started on 3L. Leukocytosis 16.9. BNP 1156 troponin . EKG ok. CXR with pulmonary edema versis viral pneumonia though more likely pnuemonia. Started on levaquin. We resumed abx yesterday for increased coughing. Some residual weakness, memory issue. Son is worried about her forgetting medications 1.Patient was hospitalized from 06/30-07/02/2024. Presented with confusion/lethargy. Wad found to have PEYMAN, possible UTI, COPD exacerbation, possible pna. She was hypoxic. She required supplemental oxygen during admission. Almost sent home with 2L at rest and 6L on ambulation but ended up cleared by RT her last day. Lethargy improved with 02 and fluids. She had CT chest with emphysematous changes. She was started on Breo & Spiriva, also on prednisone during admission. Right fissural nodule on CT with recommendation for 3 month f/up, PET, or biopsy. Referred to pulmonary today. Incidental left adrenal adenoma 0.6cm with recommendation for follow up. She was recommended to decrease metolazone to 2.5 MWF, continue potassium, nadolol restarted, continue diltiazem. Cr at discharge 1.3. 2.Over the summer had noticed enlargement and discomfort of the lymph nodes in her neck, particularly in the right upper neck. She had issues in the past with abnormality of the parotid. She had u/s of the neck with a few mildly prominent morphologically normal and not pathologically enlarged lymph nodes the right neck at level once. Blood work was fairly reassuring. ROS see HPI PHYSICAL EXAM: GENERAL: Alert and oriented x 3. NAD EYES: EOMI. Anicteric. HENT: Moist mucous membranes. LUNGS: Clear to auscultation bilaterally. CARDIOVASCULAR: Regular rate and rhythm. No murmur. No JVD. ABDOMEN: Soft, non-tender +bs EXTREMITIES: No edema. Non-tender. SKIN: No rashes or lesions. Warm. NEUROLOGIC: Unable to tandem walk, difficulty balancing one leg PSYCHIATRIC: Cooperative. Appropriate mood and affect [facility] Medical History Salivary gland disorder Multiple falls Back pain History of salivary gland cancer GERD (gastroesophageal reflux disease) TIA (transient ischemic attack) Asthma Anxiety High cholesterol OA (osteoarthritis) Mucoepidermoid carcinoma Depression Thyroid nodule Diabetes mellitus Rheumatoid arthritis Gout Arthritis Allergies Surgical History History of back surgery Hx of repair of right rotator cuff Hx of partial thyroidectomy Family History Mother HTN (hypertension) Social History Housing: House Are you a primary child care giver to a significant other at home: No Do you presently have visiting nurse or other home services: No Alcohol intake: current Alcohol intake frequency: holidays/special occasions only Patient Tobacco Use Status: Former Tobacco user Cigarette Packs Per Day: 1 Years Smoked: 25, quit 2004, started around age 17, 2PPD e-Cigarette/Vaping Use: Never Used Second Hand Smoke Exposure: No service: Yes Current occupational status: retired Cognitive needs: No Hearing needs: No Vision needs: No Questionnaire PHQ-9 Over the last 2 weeks, how often have you been bothered by any of the following problems? 1. Little interest or pleasure in doing things: several days 2. Feeling down, depressed, or hopeless: several days 3. Trouble falling or staying asleep, or sleeping too much: nearly every day 4. Feeling tired or having little energy: nearly every day 5. Poor appetite or overeating: not at all 6. Feeling bad about yourself - or that you are a failure or have let yourself or your family down: not at all 7. Trouble concentrating on things, such as reading the newspaper or watching television: not at all 8. Moving or speaking so slowly that other people could have noticed. Or the opposite - being so fidgety or restless that you have been moving around a lot more than usual: several days 9. Thoughts that you would be better off or of hurting yourself in some way: not at all Total score: 9 Depression Screening Interpretation: Positive Depression Screening Done: Yes 09927 - PHQ-9 Billing: Yes Source: Developed by Drs. Min De La Rosa, Sharlene Burris, Mau Morales and colleagues, with an educational cl from [employer]. Thrive Questionnaire Date Thrive assessed: 02/27/25 I am a: Patient What is your living situation today?: I have a steady place to live Within the past 12 months, did the food you bought not last and you didn't have the money to get more?: Never true THRIVE Score: 0 AUDIT C Alcohol Use Questionnaire (AUDIT-C) 1. How often do you have a drink containing alcohol?: Monthly or less 2. How many drinks containing alcohol do you have on a typical day when you are drinking?: 1 or 2 3. How often do you have six or more drinks on one occasion?: Never Total Score: 1 TIMO-7 AMB Questionnaire TIMO-7 Date TIMO - 7 assessed: 07/05/24 Feeling nervous, anxious, or on edge: 0 = Not at all Not being able to stop or control worryin = Several days Worrying too much about different things: 1 = Several days Trouble relaxin = Not at all Being so restless that it is hard to sit still: 0 = Not at all Becoming easily annoyed or irritable: 0 = Not at all Feeling afraid as if something awful might happen: 0 = Not at all Total TIMO-7 score (0-4 normal; 5-9 mild; 10-14 moderate; 15-21 severe): 2 Source: Developed by Drs. Min De La Rosa, Sharlene Burris, Mau Morales and colleagues, with an educational cl from [employer]. TIMO-7 Assessment Billing TIMO-7 Assessment Tool: TIMO-7 Assessment 95267 Physical exam (Primary Care) Vital Signs: Last Vital Signs Pulse 68 02/27/25 15:44 Resp 16 02/27/25 15:44 BP 118/70 02/27/25 15:44 Pulse Ox 91 L 02/27/25 15:44 Oxygen Delivery Method Room Air 02/27/25 15:44 BMI result Body Mass Index 33.9 Tobacco/Smoking Status: Tobacco use Status Tobacco use date assessed 02/27/25 02/27/25 15:41 Patient Tobacco Use Status Former Tobacco user 02/27/25 15:36 e-Cigarette/Vaping Use Never Used 02/27/25 15:36 PHQ-9: PHQ-9 Score PHQ-9: Total score 9 03/01/25 15:08 Depression Screening Interpretation: Positive Thrive Assessment: Date of Thrive Assessment Date Thrive assessed 02/27/25 02/27/25 15:36 Coding Level of Care Code Est Pt Level 4 (19437) Diagnoses Edema, unspecified type R60.9 Edema type: unspecified Frequent falls R29.6 Primary hypertension I10 Hypertension type: primary hypertension Centrilobular emphysema J43.2 COPD type: emphysema Emphysema type: centrilobular Rheumatoid arthritis involving multiple sites with positive rheumatoid factor M05.79 Rheumatoid arthritis location: multiple sites Rheumatoid factor presence: with rheumatoid factor Additional Codes TIMO-7 Assessment Billing - TIMO-7 Assessment Tool: TIMO-7 Assessment 58919 ([id number]) PHQ-9 - 55093 - PHQ-9 Billing: Yes ([id number]) Assessment & Plan Assessment & Plan (1) Edema: Code(s): R60.9 - Edema, unspecified Category: Medical Qualifiers: Edema type: unspecified Qualified Code(s): R60.9 - Edema, unspecified (2) Frequent falls: Code(s): R29.6 - Repeated falls Category: Medical (3) Hypertension: Code(s): I10 - Essential (primary) hypertension Category: Medical Qualifiers: Hypertension type: primary hypertension Qualified Code(s): I10 - Essential (primary) hypertension (4) COPD (chronic obstructive pulmonary disease): Code(s): J44.9 - Chronic obstructive pulmonary disease, unspecified Category: Medical Qualifiers: COPD type: emphysema Emphysema type: centrilobular Qualified Code(s): J43.2 - Centrilobular emphysema (5) Rheumatoid arthritis: Code(s): M06.9 - Rheumatoid arthritis, unspecified Category: Medical Qualifiers: Rheumatoid arthritis location: multiple sites Rheumatoid factor presence: with rheumatoid factor Qualified Code(s): M05.79 - Rheumatoid arthritis with rheumatoid factor of multiple sites without organ or systems involvement Plan Restart diuretic, potassium. Monitor closely Continue follow up with neurology Continue urologic follow up for recent renal lesions Chronic pain is stable Medications: New furosemide 20 - 40 mg (1 - 2 x 20 mg) PO DAILY 180 tabs 3RF potassium chloride ER 20 mEq PO DAILY 90 tabs 3RF
[2025-02-27 15:44] VITALS: BP 118/70; PULSE 68; RESP 16; O2SAT 91; BMI 33.9
== END 2025-02-27 16:07 | disposition home or self-care (01) ==
LOC: HO.HMCFM 15:25
PROVIDERS: PCP Internal Medicine; Visit Provider Internal Medicine
DX: R60.9 Edema, unspecified (principal); J43.2 Centrilobular emphysema; M05.79 Rheumatoid arthritis with rheumatoid factor of multiple sites without organ or systems involvement; R29.6 Repeated falls; I10 Essential (primary) hypertension

== ENCOUNTER → 2025-02-27 15:24 | Outpatient (BNVA) | payer MEDICARE, OTHER, SELFPAY | PROVIDERS: PCP Internal Medicine; Visit Provider Internal Medicine | DX: I10 Essential (primary) hypertension (principal); E03.9 Hypothyroidism, unspecified; R60.9 Edema, unspecified; R29.6 Repeated falls; J43.2 Centrilobular emphysema; M05.79 Rheumatoid arthritis with rheumatoid factor of multiple sites without organ or systems involvement | CPT/HCPCS: 96127; 99212 ==

== ENCOUNTER → 2025-03-21 23:59 | Outpatient (BNV) | payer MEDICARE, OTHER, SELFPAY | PROVIDERS: PCP Internal Medicine; Visit Provider Internal Medicine | DX: J96.01 Acute respiratory failure with hypoxia (principal); Z47.89 Encounter for other orthopedic aftercare; I10 Essential (primary) hypertension | CPT/HCPCS: G0180 ==

== ENCOUNTER 2025-03-27 09:57 | Outpatient (AMB) | payer MEDICARE, OTHER, SELFPAY ==
--- NOTE | 2025-03-27 10:15 | MHC.PC.OV ---
Vital Signs 03/27/25 10:18 Height 5 ft 3 in Weight 185 lb BMI 32.8 BP 104/62 Blood Pressure Location Lt brachial Position Sitting Respiration 14 Pulse 55 Pulse Source Pulse Oximeter Pulse Oximetry (%) 91 L Oxygen Delivery Method Room Air Intake Visit Reasons: 3 month follow up Intake Note: Three month follow up. Was at ER and given cephalexin 500, finished on Thursday Foster Parent Required: No Allergies amoxicillin [From Augmentin] Allergy (Severe, Verified 03/27/25 10:16) Angioedema clarithromycin [From Biaxin] Allergy (Severe, Verified 03/27/25 10:16) Angioedema clavulanic acid [From Augmentin] Allergy (Severe, Verified 03/27/25 10:16) Angioedema erythromycin base Allergy (Severe, Verified 03/27/25 10:16) Angioedema penicillin G Allergy (Severe, Verified 03/27/25 10:16) shock polyethylene glycol 3350 Allergy (Severe, Verified 03/27/25 10:16) Angioedema sulfadiazine Allergy (Severe, Verified 03/27/25 10:16) Angioedema tetracycline Allergy (Severe, Verified 03/27/25 10:16) Angioedema tramadol Allergy (Severe, Verified 03/27/25 10:16) vomit venlafaxine [From Effexor] Allergy (Severe, Verified 03/27/25 10:16) Angioedema tizanidine Allergy (Mild, Verified 03/27/25 10:16) unknown ciprofloxacin Allergy (Unknown, Verified 03/27/25 10:16) Unknown adhesive bandaid Allergy (Severe, Uncoded 03/27/25 10:16) Blister chapstick Allergy (Severe, Uncoded 03/27/25 10:16) unknown tania Allergy (Severe, Uncoded 03/27/25 10:16) Rash Tobacco use date assessed: 03/27/25 Dental Screening Dental Screen Date: 03/27/25 Did you have a dental visit in the last 12 months?: Yes Did you have a dental problem in the last 6 months where you did not have access to dental care?: No Was dental information given to patient?: Patient has dentist HPI HPI Comments History of Present Illness Details The patient is a 70 year old female with a past medical history of chronic pain, DDD spine, RA, prediabetes/diabetes, depression/grief, hypertension, hypothyroid presenting for follow up CV: On diltiazem, nadolol, restarted furosemide with 6 pound weight loss. She is taking 20mg daily. Previously was on loop diuretic and metazolone. Echo 2022 with EF 55-60% and PAP 40-45%. She is concerned about recurrent right cervical LN swelling. It is uncomfortable. She did have CT neck last year with non specific cervcal LN. She has a history of salivary gland malignancy in 2016/2017. Believes she was seeing ENT at [place] at that time. She had mono last year at which time she had fairly significant LN. Neuro: Notes over the past few months she has had had a handful of episodes where she randomly falls. This has usually happened when she has reached for an item but not bent down or at the waist. She somehow then suddenly falls. She denies any vertigo, dizziness, lightheadedness, palpitations, chest pain. -She recently was seen by neurology but the note is not yet available.MRI brain chronic small vessel disease however the several lesions are perpendicular lateral ventricle raising concern for demyelination. Correlate clinically. COPD: She is following with pulmonary. PFTs 2022. CT chest last year-COPD on imaging. Chronic pain: Maintained on chronic opioid therapy. History of spinal surgery. Follows rheumatology. MRI right shoulder-nondiagnostic exam due to severe metal artifiact relating to right shoulder relpacement hardware. Severe atrophy of rotator cuff musculature. Hypothyroid-on levothyroxine 25 mcg daily Diabetes-A1Cs fluctuate btw diabetes and prediabetes. She refuses medications BH: Psych referral recently placed. Son says mom can spend whole days without going out, staying in bed. She thinks she continues to deal with normal grief. She continues on duloxetine Urologic: Recent successful cyroablation therapy for lesion with repeat CT planned for 3 months She was hospitalized from January 01-January 04 2025. Presented with cough with worsening congestion and shortness of breath. Oxygen sat 89% on RA. Started on 3L. Leukocytosis 16.9. BNP 1156 troponin . EKG ok. CXR with pulmonary edema versis viral pneumonia though more likely pnuemonia. Started on levaquin. We resumed abx yesterday for increased coughing. Some residual weakness, memory issue. Son is worried about her forgetting medications 1.Patient was hospitalized from 06/30-07/02/2024. Presented with confusion/lethargy. Wad found to have PEYMAN, possible UTI, COPD exacerbation, possible pna. She was hypoxic. She required supplemental oxygen during admission. Almost sent home with 2L at rest and 6L on ambulation but ended up cleared by RT her last day. Lethargy improved with 02 and fluids. She had CT chest with emphysematous changes. She was started on Breo & Spiriva, also on prednisone during admission. Right fissural nodule on CT with recommendation for 3 month f/up, PET, or biopsy. Referred to pulmonary today. Incidental left adrenal adenoma 0.6cm with recommendation for follow up. She was recommended to decrease metolazone to 2.5 MWF, continue potassium, nadolol restarted, continue diltiazem. Cr at discharge 1.3. 2.Over the summer had noticed enlargement and discomfort of the lymph nodes in her neck, particularly in the right upper neck. She had issues in the past with abnormality of the parotid. She had u/s of the neck with a few mildly prominent morphologically normal and not pathologically enlarged lymph nodes the right neck at level once. Blood work was fairly reassuring. ROS see HPI PHYSICAL EXAM: GENERAL: Alert and oriented x 3. NAD EYES: EOMI. Anicteric. HENT: Moist mucous membranes. LUNGS: Clear to auscultation bilaterally. CARDIOVASCULAR: Regular rate and rhythm. No murmur. No JVD. ABDOMEN: Soft, non-tender +bs EXTREMITIES: No edema. Non-tender. SKIN: No rashes or lesions. Warm. NEUROLOGIC: Unable to tandem walk, difficulty balancing one leg PSYCHIATRIC: Cooperative. Appropriate mood and affect [facility] Medical History Salivary gland disorder Multiple falls Back pain History of salivary gland cancer GERD (gastroesophageal reflux disease) TIA (transient ischemic attack) Asthma Anxiety High cholesterol OA (osteoarthritis) Mucoepidermoid carcinoma Depression Thyroid nodule Diabetes mellitus Rheumatoid arthritis Gout Arthritis Allergies Surgical History History of back surgery Hx of repair of right rotator cuff Hx of partial thyroidectomy Family History Mother HTN (hypertension) Social History Housing: House Are you a primary primary care sales representative to a significant other at home: No Do you presently have visiting nurse or other home services: No Alcohol intake: current Alcohol intake frequency: holidays/special occasions only Patient Tobacco Use Status: Former Tobacco user Cigarette Packs Per Day: 1 Years Smoked: 25, quit 2004, started around age 17, 2PPD e-Cigarette/Vaping Use: Never Used Second Hand Smoke Exposure: No service: Yes Current occupational status: retired Cognitive needs: No Hearing needs: No Vision needs: No Questionnaire Thrive Questionnaire Date Thrive assessed: 02/27/25 I am a: Patient What is your living situation today?: I have a steady place to live Within the past 12 months, did the food you bought not last and you didn't have the money to get more?: Never true Within the past 12 months, did you worry whether your food would run out before you got money to buy more?: I choose not to answer this question Do you have trouble paying for medicines?: I choose not to answer this question Do you have trouble getting transportation to medical appointments?: I choose not to answer this question Do you have trouble paying your heating and electricity bill?: No THRIVE Score: 0 TIMO-7 AMB Questionnaire TIMO-7 Date TIMO - 7 assessed: 07/05/24 Source: Developed by Drs. Min De La Rosa, Sharlene Burris, Mau Morales and colleagues, with an educational cl from [employer]. Physical exam (Primary Care) Vital Signs: Last Vital Signs Pulse 55 03/27/25 10:18 Resp 14 03/27/25 10:18 BP 104/62 03/27/25 10:18 Pulse Ox 91 L 03/27/25 10:18 Oxygen Delivery Method Room Air 03/27/25 10:18 BMI result Body Mass Index 32.8 Tobacco/Smoking Status: Tobacco use Status Tobacco use date assessed 03/27/25 03/27/25 10:27 Patient Tobacco Use Status Former Tobacco user 03/27/25 10:30 e-Cigarette/Vaping Use Never Used 03/27/25 10:30 Thrive Assessment: Date of Thrive Assessment Date Thrive assessed 02/27/25 03/27/25 10:17 Coding Level of Care Code Est Pt Level 4 (76383) Diagnoses Edema, unspecified type R60.9 Edema type: unspecified History of salivary gland cancer Z85.818 Cervical lymphadenopathy R59.0 Centrilobular emphysema J43.2 COPD type: emphysema Emphysema type: centrilobular Assessment & Plan Assessment & Plan (1) Edema: Code(s): R60.9 - Edema, unspecified Category: Medical Qualifiers: Edema type: unspecified Qualified Code(s): R60.9 - Edema, unspecified (2) History of salivary gland cancer: Comment: removed salivary gland--2016 Code(s): Z85.818 - Personal history of malignant neoplasm of other sites of lip, oral cavity, and pharynx Category: Medical (3) Cervical lymphadenopathy: Code(s): R59.0 - Localized enlarged lymph nodes Category: Medical (4) COPD (chronic obstructive pulmonary disease): Code(s): J44.9 - Chronic obstructive pulmonary disease, unspecified Category: Medical Qualifiers: COPD type: emphysema Emphysema type: centrilobular Qualified Code(s): J43.2 - Centrilobular emphysema Plan Recurrent cervical lymph node swelling History of salivary gland tumor Referral to eNT Prediabetes/diabees-monitor [id number] Edema is improved on lasix Orders: Orders Comprehensive Met. Panel 03/27/25 E11.42 - Type 2 diabetes mellitus with diabetic polyneuropathy, E78.00 - Pure hypercholesterolemia, unspecified Complete Blood Count Auto Diff 03/27/25 E11.42 - Type 2 diabetes mellitus with diabetic polyneuropathy, E78.00 - Pure hypercholesterolemia, unspecified Hemoglobin A1c 03/27/25 E11.42 - Type 2 diabetes mellitus with diabetic polyneuropathy, E78.00 - Pure hypercholesterolemia, unspecified Referrals Ear/Nose/Throat Referral R59.0 - Localized enlarged lymph nodes, Z85.818 - Personal history of malignant neoplasm of other sites of lip, oral cavity, and pharynx
[2025-03-27 10:18] VITALS: BP 104/62; PULSE 55; RESP 14; O2SAT 91; BMI 32.8
--- OUTSIDE RECORDS SUMMARY | 2025-03-27 10:52 | XMS_ITS | Clinical Summary ---
Author Organization [facility] Address [address] [place] [address] Care Team Providers Care Graduate Intern Name Role Phone Aditi Nguyen MD Primary Care Provider [phone] Surgical History Surgery Date Site/Laterality Comments BACK [...] benign OTHER SURGICAL HISTORY 05/07/2018 Right PROCEDURE: ND EXC PRTD JOVITA/PRTD GLND LAT LOBE W/O [...] Chronic diastolic CHF (conge stive heart failure) ([facility] V24, [facility] V28) 09/12/2015 DX:Chronic diastol ic CHF (congestive heart failure) ([facility]) Osteoarthritis 08/26/2016 DX:Osteoarthriti s Family History Medical [...] Used Date Smoking Tobacco: Former Cigarettes 1.5 20.2 S tarted: 01/29/2005 Smokeless Tobacco: Never Alcohol [...] age to complete this topic Care Teams Graduate Intern Relationship Specialty Start Date End Date Aditi Nguyen MD PCP - General Internal Medicine 08/19/15
== END 2025-03-27 11:00 | disposition home or self-care (01) ==
LOC: HO.HMCFM 09:58
PROVIDERS: PCP Internal Medicine; Visit Provider Internal Medicine
DX: R60.9 Edema, unspecified (principal); Z85.818 Personal history of malignant neoplasm of other sites of lip, oral cavity, and pharynx; R59.0 Localized enlarged lymph nodes; J43.2 Centrilobular emphysema

== ENCOUNTER → 2025-03-27 09:57 | Outpatient (BNVA) | payer MEDICARE, OTHER, SELFPAY | PROVIDERS: PCP Internal Medicine; Visit Provider Internal Medicine | DX: Z13.89 Encounter for screening for other disorder (principal) | CPT/HCPCS: 99212 ==

== ENCOUNTER 2025-03-27 11:25 | Outpatient (REF) | payer MEDICARE, OTHER, SELFPAY ==
[2025-03-27 14:12] LABS: MANUAL DIFF FLAG NO
[2025-03-27 14:30] LABS: Basophils Absolute Auto 0.1 X10*3/uL (0.0-0.2); Basophils Percent Auto 1.1 % (0-2); Eosinophils Absolute Auto 0.4 X10*3/uL (0.0-0.4); Eosinophils Percent Auto 4.6 % (0-4); Hematocrit 52.2 % (37.0-47.0); Imm Gran Abs Auto 0.02 X10*3/uL (0.00-0.03); Imm Gran Pct Auto 0.2 % (0.0-0.4); Lymphocytes Absolute Auto 2.1 X10*3/uL (1.2-4.9); Lymphocytes Percent Auto 22.5 % (20-40); Mean Corpuscular HGB Conc 30.7 g/dl (31.0-35.0); Mean Corpuscular Hemoglobin 25.4 pg (27.0-33.0); Monocytes Percent Auto 11.2 % (2-11); Neutrophils Absolute Auto 5.6 x10*3/uL (2.0-8.3); Neutrophils Percent Auto 60.4 % (45-73); Platelet Count 310 X10*3/uL (160-400); Red Blood Count 6.29 X10*6/uL (4.20-5.50); Red Cell Distribution Width 15.3 % (11.0-16.0); White Blood Count 9.2 X10*3/uL (4.8-10.8)
[2025-03-27 14:47] LABS: Estimated Average Glucose 128 mg/dL; Hemoglobin A1C 182.7985 umol/L; Hemoglobin A1c % 6.1 % (<6.0); Total Hemoglobin (HGBA1C) 4214.0558 umol/L
[2025-03-27 14:53] LABS: Alanine Aminotransferase 17 U/L (0-31); Albumin Level 4.3 g/dL (3.5-5.0); Alkaline Phosphatase 62 U/L (39-117); Anion Gap 12 (12-20); Aspartate Amino Transferase 28 U/L (5-31); Bilirubin Total 0.5 mg/dL (0.0-1.0); Blood Urea Nitrogen 24 mg/dL (9-16); Calcium 9.8 mg/dL (8.4-10.2); Carbon Dioxide 32 mmol/L (22-29); Chloride 102 mmol/L (96-108); Estimated Glomerular Filt Rate 36; Glucose Random 102 mg/dL (60-115); Potassium 4.3 mmol/L (3.3-5.1); Sodium 142 mmol/L (135-145); Total Protein 7.7 g/dL (6.5-8.0)
== END 2025-03-27 11:26 | disposition home or self-care (01) ==
LOC: HO.WFDLDS 11:25
PROVIDERS: Visit Provider Internal Medicine
DX: E11.42 Type 2 diabetes mellitus with diabetic polyneuropathy (principal); E78.00 Pure hypercholesterolemia, unspecified; R60.9 Edema, unspecified; Z85.818 Personal history of malignant neoplasm of other sites of lip, oral cavity, and pharynx; R59.0 Localized enlarged lymph nodes; J43.2 Centrilobular emphysema
CPT/HCPCS: 36415; 80053; 83036; 85025; 99212

== ENCOUNTER 2025-04-03 12:30 | Outpatient (AMB) | payer MEDICARE, OTHER, SELFPAY ==
--- NOTE | 2025-04-03 12:34 | MHC.PC.OV ---
Vital Signs 04/03/25 12:42 Height 5 ft 3 in Weight 190 lb BMI 33.7 BP 128/76 Blood Pressure Location Rt brachial Position Sitting Respiration 14 Pulse 65 Pulse Source Pulse Oximeter Temp 98.2 F Temp Source Oral Pulse Oximetry (%) 91 L Oxygen Delivery Method Room Air Intake Visit Reasons: LE swelling Intake Note: Follow up on leg swelling. Catering Operations Manager Required: No Allergies amoxicillin [From Augmentin] Allergy (Severe, Verified 04/03/25 12:41) Angioedema clarithromycin [From Biaxin] Allergy (Severe, Verified 04/03/25 12:41) Angioedema clavulanic acid [From Augmentin] Allergy (Severe, Verified 04/03/25 12:41) Angioedema erythromycin base Allergy (Severe, Verified 04/03/25 12:41) Angioedema penicillin G Allergy (Severe, Verified 04/03/25 12:41) shock polyethylene glycol 3350 Allergy (Severe, Verified 04/03/25 12:41) Angioedema sulfadiazine Allergy (Severe, Verified 04/03/25 12:41) Angioedema tetracycline Allergy (Severe, Verified 04/03/25 12:41) Angioedema tramadol Allergy (Severe, Verified 04/03/25 12:41) vomit venlafaxine [From Effexor] Allergy (Severe, Verified 04/03/25 12:41) Angioedema tizanidine Allergy (Mild, Verified 04/03/25 12:41) unknown ciprofloxacin Allergy (Unknown, Verified 04/03/25 12:41) Unknown adhesive bandaid Allergy (Severe, Uncoded 04/03/25 12:41) Blister chapstick Allergy (Severe, Uncoded 04/03/25 12:41) unknown tania Allergy (Severe, Uncoded 04/03/25 12:41) Rash Tobacco use date assessed: 03/27/25 Dental Screening Dental Screen Date: 03/27/25 HPI HPI Comments History of Present Illness Details The patient is a 70 year old female with a past medical history of chronic pain, DDD spine, RA, prediabetes/diabetes, depression/grief, hypertension, hypothyroid presenting for follow up CV: On diltiazem, nadolol, restarted furosemide-taking 20mg daily. Previously was on loop diuretic and metazolone. Echo 2022 with EF 55-60% and PAP 40-45%. Last Cr bumped. She is concerned about recurrent right cervical LN swelling. It is uncomfortable. She did have CT neck last year with non specific cervcal LN. She has a history of salivary gland malignancy in 2016/2017. Believes she was seeing ENT at [facility] [place] at that time. She had mono last year at which time she had fairly significant LN. She is awaiting appt with ENT Neuro: Notes over the past few months she has had had a handful of episodes where she randomly falls. This has usually happened when she has reached for an item but not bent down or at the waist. She somehow then suddenly falls. She denies any vertigo, dizziness, lightheadedness, palpitations, chest pain. -She recently was seen by neurology but the note is not yet available.MRI brain chronic small vessel disease however the several lesions are perpendicular lateral ventricle raising concern for demyelination. Correlate clinically. COPD: She is following with pulmonary. PFTs 2022. CT chest last year-COPD on imaging. Chronic pain: Maintained on chronic opioid therapy. History of spinal surgery. Follows rheumatology. MRI right shoulder-nondiagnostic exam due to severe metal artifiact relating to right shoulder relpacement hardware. Severe atrophy of rotator cuff musculature. Hypothyroid-on levothyroxine 25 mcg daily Diabetes-A1Cs fluctuate btw diabetes and prediabetes. She refuses medications BH: Psych referral recently placed. Son says mom can spend whole days without going out, staying in bed. She thinks she continues to deal with normal grief. She continues on duloxetine Urologic: Recent successful cyroablation therapy for lesion with repeat CT planned for 3 months She was hospitalized from January 01-January 04 2025. Presented with cough with worsening congestion and shortness of breath. Oxygen sat 89% on RA. Started on 3L. Leukocytosis 16.9. BNP 1156 troponin . EKG ok. CXR with pulmonary edema versis viral pneumonia though more likely pnuemonia. Started on levaquin. We resumed abx yesterday for increased coughing. Some residual weakness, memory issue. Son is worried about her forgetting medications 1.Patient was hospitalized from 06/30-07/02/2024. Presented with confusion/lethargy. Wad found to have PEYMAN, possible UTI, COPD exacerbation, possible pna. She was hypoxic. She required supplemental oxygen during admission. Almost sent home with 2L at rest and 6L on ambulation but ended up cleared by RT her last day. Lethargy improved with 02 and fluids. She had CT chest with emphysematous changes. She was started on Breo & Spiriva, also on prednisone during admission. Right fissural nodule on CT with recommendation for 3 month f/up, PET, or biopsy. Referred to pulmonary today. Incidental left adrenal adenoma 0.6cm with recommendation for follow up. She was recommended to decrease metolazone to 2.5 MWF, continue potassium, nadolol restarted, continue diltiazem. Cr at discharge 1.3. 2.Over the summer had noticed enlargement and discomfort of the lymph nodes in her neck, particularly in the right upper neck. She had issues in the past with abnormality of the parotid. She had u/s of the neck with a few mildly prominent morphologically normal and not pathologically enlarged lymph nodes the right neck at level once. Blood work was fairly reassuring. ROS see HPI PHYSICAL EXAM: GENERAL: Alert and oriented x 3. NAD EYES: EOMI. Anicteric. HENT: Moist mucous membranes. LUNGS: Clear to auscultation bilaterally. CARDIOVASCULAR: Regular rate and rhythm. No murmur. No JVD. ABDOMEN: Soft, non-tender +bs EXTREMITIES: No edema. Non-tender. SKIN: No rashes or lesions. Warm. NEUROLOGIC: Unable to tandem walk, difficulty balancing one leg PSYCHIATRIC: Cooperative. Appropriate mood and affect [facility] Medical History Salivary gland disorder Multiple falls Back pain History of salivary gland cancer GERD (gastroesophageal reflux disease) TIA (transient ischemic attack) Asthma Anxiety High cholesterol OA (osteoarthritis) Mucoepidermoid carcinoma Depression Thyroid nodule Diabetes mellitus Rheumatoid arthritis Gout Arthritis Allergies Surgical History History of back surgery Hx of repair of right rotator cuff Hx of partial thyroidectomy Family History Mother HTN (hypertension) Social History Housing: House Are you a primary respiratory care faculty to a significant other at home: No Do you presently have visiting nurse or other home services: No Alcohol intake: current Alcohol intake frequency: holidays/special occasions only Patient Tobacco Use Status: Former Tobacco user Cigarette Packs Per Day: 1 Years Smoked: 25, quit 2004, started around age 17, 2PPD e-Cigarette/Vaping Use: Never Used Second Hand Smoke Exposure: No service: Yes Current occupational status: retired Cognitive needs: No Hearing needs: No Vision needs: No Questionnaire Thrive Questionnaire Date Thrive assessed: 02/27/25 I am a: Patient What is your living situation today?: I have a steady place to live Within the past 12 months, did the food you bought not last and you didn't have the money to get more?: Never true Within the past 12 months, did you worry whether your food would run out before you got money to buy more?: I choose not to answer this question Do you have trouble paying for medicines?: I choose not to answer this question Do you have trouble getting transportation to medical appointments?: I choose not to answer this question Do you have trouble paying your heating and electricity bill?: No Do you have trouble taking care of your child, family member or friend?: No Do you have trouble with day-to-day activities such as bathing, preparing meals, shopping, managing finances, etc.?: No Are you currently unemployed and looking for a job?: No THRIVE Score: 0 TIMO-7 AMB Questionnaire TIMO-7 Date TIMO - 7 assessed: 07/05/24 Source: Developed by Drs. Min De La Rosa, Sharlene Burris, Mau Morales and colleagues, with an educational cl from [employer]. Physical exam (Primary Care) Vital Signs: Last Vital Signs Temp 98.2 F 04/03/25 12:42 Pulse 65 04/03/25 12:42 Resp 14 04/03/25 12:42 BP 128/76 04/03/25 12:42 Pulse Ox 91 L 04/03/25 12:42 Oxygen Delivery Method Room Air 04/03/25 12:42 BMI result Body Mass Index 33.7 Tobacco/Smoking Status: Tobacco use Status Tobacco use date assessed 03/27/25 04/03/25 12:35 Patient Tobacco Use Status Former Tobacco user 04/03/25 12:46 e-Cigarette/Vaping Use Never Used 04/03/25 12:46 Thrive Assessment: Date of Thrive Assessment Date Thrive assessed 02/27/25 04/03/25 12:35 Coding Level of Care Code Est Pt Level 4 (05878) Diagnoses PEYMAN (acute kidney injury) N17.9 Edema, unspecified type R60.9 Edema type: unspecified History of salivary gland cancer Z85.818 Chronic back pain, unspecified back location, unspecified back pain laterality M54.9; G89.29 Back pain location: back pain in unspecified location Back pain laterality: unspecified Assessment & Plan Assessment & Plan (1) PEYMAN (acute kidney injury): Code(s): N17.9 - Acute kidney failure, unspecified Category: Medical (2) Edema: Code(s): R60.9 - Edema, unspecified Category: Medical Qualifiers: Edema type: unspecified Qualified Code(s): R60.9 - Edema, unspecified (3) History of salivary gland cancer: Comment: removed salivary gland--2017 Code(s): Z85.818 - Personal history of malignant neoplasm of other sites of lip, oral cavity, and pharynx Category: Medical (4) Chronic back pain: Code(s): M54.9 - Dorsalgia, unspecified; G89.29 - Other chronic pain Category: Medical Qualifiers: Back pain location: back pain in unspecified location Back pain laterality: unspecified Qualified Code(s): M54.9 - Dorsalgia, unspecified; G89.29 - Other chronic pain Plan PEYMAN-recheck Cr today. Weight is up a few pounds. She will continue to monitor Awaiting ENT appt Chronic pain is stable on current medications Orders: Orders Basic Metabolic Panel 04/03/25 R60.9 - Edema, unspecified NT-proBNP 04/03/25 R60.9 - Edema, unspecified
[2025-04-03 12:42] VITALS: BP 128/76; PULSE 65; RESP 14; TEMP 36.8; O2SAT 91; BMI 33.7
--- OUTSIDE RECORDS SUMMARY | 2025-04-03 13:51 | XMS_ITS | Clinical Summary ---
Author Organization Unknown Care Team Providers Care Sack Cleaning Hand Name Role Phone JAZZY BUTLER, FROILAN Unavailable Unavailable EZEKIEL PT, SALLY Unavailable Unavailable SUKHJINDER LOPPER, CHI Unavailable Unavailable CALLI ELECTRIC METER READER, FROILAN Unavailable Unavailable Payers Payer Name Policy Type Policy Number Effective Date Expira tion Date MEDICARE.[facility] [id number] Problems Condition Name Condition Details Condition Category [...] 10 mg tablet 01-17 00:00: 00 Yes [id number] PAIN Per instruc tions EVERY 4 HOURS NEEDED Per instructio ns EVERY 4 HOURS NEEDED (route: oral) Med Classific ation: Analgesic , Anti-infl ammatory or Antipyret ic doxycycline hyclate 100 mg tablet 01-09 00:00: 00 02-06 00:00 :00 No [id number] Per instruc tions TWICE A DAY Per instructio ns TWICE A DAY (route: oral) Med Classific ation: Anti-Infe ctive Agents amitriptyli ne 25 mg tablet 01-17 00:00: 00 Yes [id number] DEPRESSION 1 tablet DAILY 1 tablet DAILY (route: oral) Med Classific ation: Central Nervous System Agents aspirin 81 mg tablet,caterina yed release 01-17 00:00: 00 Yes [id number] HEART HEALTH 1 tablet DAILY 1 tablet DAILY (route: oral) Med Classific ation: Hematolog ical Agents Breo Ellipta 100 mcg-25 mcg/dose powder for inhalation 01-17 00:00: 00 Yes [id number] ASTHMA 1 inhalat ion DAILY 1 inhalation DAILY (route: inhalation ) Med Classific ation: Respirato ry Therapy Agents Corgard 80 mg tablet 01-17 00:00: 00 Yes [id number] HTN 1 tablet DAILY 1 tablet DAILY (route: oral) Med Classific ation: Cardiovas cular Therapy Agents diltiazem CD 240 mg capsule,ext ended release 24 hr 01-17 00:00: 00 Yes [id number] HTN 1 capsule DAILY 1 capsule DAILY (route: oral) Med Classific ation: Cardiovas cular Therapy Agents duloxetine 60 mg capsule,del ayed release 01-17 00:00: 00 Yes [id number] DEPRESSION 1 capsule DAILY 1 capsule DAILY (route: oral) Med Classific ation: Central Nervous System Agents fluticasone propionate 50 mcg/actuati on nasal spray,suspe nsion 01-17 00:00: 00 Yes [id number] ALLERGIES 2 spray DAILY 2 spray DAILY (route: nasal) Med Classific ation: Respirato ry Therapy Agents gabapentin 300 mg capsule 01-17 00:00: 00 Yes [id number] PAIN 1 capsule 3 TIMES DAILY 1 capsule 3 TIMES DAILY (route: oral) Med Classific ation: Central Nervous System Agents leflunomide 20 mg tablet 01-17 00:00: 00 Yes [id number] DEPRESSION 1 tablet BEDTIME 1 tablet BEDTIME (route: oral) Med Classific ation: Analgesic , Anti-infl ammatory or Antipyret ic levothyroxi ne 25 mcg tablet 01-17 00:00: 00 Yes [id number] THYROID 1 tablet DAILY 1 tablet DAILY (route: oral) Med Classific ation: Endocrine Loratadine- D 10 mg-240 mg tablet,exte nded release 24 hr 01-17 00:00: 00 Yes [id number] ALLERGIES 1 tablet DAILY 1 tablet DAILY (route: oral) Med Classific ation: Respirato ry Therapy Agents magnesium citrate, magnesium oxide 250 mg capsule 01-17 00:00: 00 Yes [id number] SUPPLEMENT 1 capsule DAILY 1 capsule DAILY (route: oral) Med Classific ation: Electroly te Balance-N utritiona l Products omeprazole 40 mg capsule,del ayed release 01-17 00:00: 00 Yes [id number] GERD 1 capsule 2 TIMES DAILY 1 capsule 2 TIMES DAILY (route: oral) Med Classific ation: Gastroint estinal Therapy Agents Spiriva Respimat 1.25 mcg/actuati on solution for inhalation 01-17 00:00: 00 Yes [id number] ASTHMA 2 puff DAILY 2 puff DAILY (route: inhalation ) Med Classific ation: Respirato ry Therapy Agents Tylenol 8 Hour 650 mg tablet,exte nded release 01-17 00:00: 00 Yes [id number] PAIN 1 tablet EVERY 8 HOURS 1 tablet EVERY 8 HOURS (route: oral) Med Classific ation: Analgesic , Anti-infl ammatory or Antipyret ic Vitamin D3 125 mcg (5,000 unit) tablet 01-17 00:00: 00 Yes [id number] SUPPLEMENT 1 tablet DAILY 1 tablet DAILY (route: oral) Med Classific ation: Electroly te Balance-N utritiona l Products Vital Signs Vital Name Observation Time Observation Value Commen ts Temperature 2025-03-28 13:31:00.000 97.1 [degF] Temperature 2025-03-07 12:16:00.000 97.3 [degF] Temperature 2025-02-28 12:04:00.000 97.1 [degF] Temperature 2025-02-22 11:50:00.000 97.3 [degF] Temperature 2025-02-13 10:34:00.000 97.1 [degF] Temperature 2025-02-06 11:39:00.000 97.5 [degF] BMI (%) 2025-02-06 11:55:00.000 34 kg/m2 Height 2025-02-06 11:39:00.000 63 [in_us] Pulse 2025-03-28 13:31:00.000 80 /min Pulse 2025-03-07 12:16:00.000 66 /min Pulse 2025-02-28 12:04:00.000 67 /min Pulse 2025-02-22 11:50:00.000 83 /min Pulse 2025-02-13 10:34:00.000 80 /min Pulse 2025-02-06 11:39:00.000 74 /min O2 Saturation (%) 2025-03-28 13:31:00.000 96 % O2 Saturation (%) 2025-03-07 12:16:00.000 92 % O2 Saturation (%) 2025-02-28 12:04:00.000 97 % O2 Saturation (%) 2025-02-22 11:50:00.000 95 % O2 Saturation (%) 2025-02-13 10:34:00.000 98 % O2 Saturation (%) 2025-02-06 11:39:00.000 92 % Respirations 2025-03-28 13:31:00.000 16 /min Respirations 2025-03-07 12:16:00.000 16 /min Respirations 2025-02-28 12:04:00.000 16 /min Respirations 2025-02-22 11:50:00.000 16 /min Respirations 2025-02-13 10:34:00.000 18 /min Respirations 2025-02-06 11:39:00.000 16 /min Weight (lbs) 2025-02-13 10:39:00.000 190 [lb_av] Weight (lbs) 2025-02-06 11:55:00.000 197 [lb_av] Systolic Blood Pressure 2025-03-28 13:31:00.000 145 mm [Hg] Systolic Blood Pressure 2025-03-07 12:16:00.000 120 mm [Hg] Systolic Blood Pressure 2025-02-28 12:04:00.000 140 mm [Hg] Systolic Blood Pressure 2025-02-22 11:50:00.000 138 mm [Hg] Systolic Blood Pressure 2025-02-13 10:34:00.000 155 mm [Hg] Systolic Blood Pressure 2025-02-06 11:39:00.000 140 mm [Hg] Diastolic Blood Pressure 2025-03-28 13:31:00.000 80 mm [Hg] Diastolic Blood Pressure 2025-03-07 12:16:00.000 72 mm [Hg] Diastolic Blood Pressure 2025-02-28 12:04:00.000 80 mm [Hg] Diastolic Blood Pressure 2025-02-22 11:50:00.000 82 mm [Hg] Diastolic Blood Pressure 2025-02-13 10:34:00.000 82 mm [Hg] Diastolic Blood Pressure 2025-02-06 11:39:00.000 90 mm [Hg] Plan of Treatment Planned Activity Planned Date Details Comments Future Scheduled Test AGENCY MAY PERFORM A RESUMPTION OF CARE VISIT FOLLOWING ANY HOSPITAL ADMISSION. PT TO EVALUATE, OBSERVE / ASSESS, AND MONITOR, LOPPER TO OBSERVE AND MONITOR, PROVIDE SKILLED THERAPEUTIC INTERVENTION, ACTIVITY, EDUCATION, AND TRAINING TO ADDRESS; [code = AGENCY MAY PERFORM A RESUMPTION OF CARE VISIT FOLLOWING ANY HOSPITAL ADMISSION. PT TO EVALUATE, OBSERVE / ASSESS, AND MONITOR, LOPPER TO OBSERVE AND MONITOR, PROVIDE SKILLED THERAPEUTIC INTERVENTION, ACTIVITY, EDUCATION, AND TRAINING TO ADDRESS;] Future Scheduled Test CHAIR APARICIO SFERS (PT/LOPPER) [code = CHAIR TRANSFERS (PT/LOPPER)] Future Scheduled Test PT/LOPPER TO PROVIDE GAIT TRAINING FOR IMPROVED MOBILITY AND /OR TO NORMALIZE GAIT PATTERN [code = PT/LOPPER TO PROVIDE GAIT TRAINING FOR IMPROVED MOBILITY AND /OR TO NORMALIZE GAIT PATTERN] Future Scheduled Test NEUROMUSCU LAR RE-EDUCATION / BALANCE / POSTURAL CONTROL (PT) [code = NEUROMUSCULAR RE-EDUCATION / BALANCE / POSTURAL CONTROL (PT)] Future Scheduled Test THERAPEUTI C EXERCISES AND ESTABLISHING A HOME EXERCISE PROGRAM (PT/LOPPER) [code = THERAPEUTIC EXERCISES AND ESTABLISHING A HOME EXERCISE PROGRAM (PT/LOPPER)] Future Scheduled Test PT/LOPPER TO IDENTIFY FALL RISK FACTORS; EDUCATE THE PATIENT/CAREGIVER ON WAYS TO REDUCE FALL RISK FACTORS AND ESTABLISH HOME EXERCISE PROGRAM TO MINIMIZE FALL RISK. MAY TEACH THE PATIENT FLOOR RECOVERY WHEN CLINICALLY APPROPRIATE [code = PT/LOPPER TO IDENTIFY FALL RISK FACTORS; EDUCATE THE PATIENT/CAREGIVER ON WAYS TO REDUCE FALL RISK FACTORS AND ESTABLISH HOME EXERCISE PROGRAM TO MINIMIZE FALL RISK. MAY TEACH THE PATIENT FLOOR RECOVERY WHEN CLINICALLY APPROPRIATE] Future Scheduled Test PT / LOPPER M AY EDUCATE ON PAIN MANAGEMENT CLINICALLY INDICATED, INCLUDING NON-PHARMACOLOGICAL PAIN REDUCTION TECHNIQUES AND USE OF CRYOTHERAPY OR HEAT UP TO 20 MIN AT A TIME FOR PAIN MANAGEMENT 4 TIMES PER DAY TO LUMBAR SPINE. [code = PT / LOPPER MAY EDUCATE ON PAIN MANAGEMENT CLINICALLY INDICATED, [...] End Date/Time Encounter Type Admission Type Attending [facility] Care Department Encounter ID Discharge Date Discharge Status Discharge Condition Discharge Reason Percent Goals Met 2025-02-06 00:00:00 2025-04-06 00:00:00 Outpatient NEW ADMISSION SALLY FALCON [facility] [id number] 12.90
== END 2025-04-03 13:16 | disposition home or self-care (01) ==
LOC: HO.HMCFM 12:31
PROVIDERS: PCP Internal Medicine; Visit Provider Internal Medicine
DX: N17.9 Acute kidney failure, unspecified (principal); R60.9 Edema, unspecified; Z85.818 Personal history of malignant neoplasm of other sites of lip, oral cavity, and pharynx; M54.9 Dorsalgia, unspecified; G89.29 Other chronic pain

== ENCOUNTER → 2025-04-03 12:30 | Outpatient (BNVA) | payer MEDICARE, OTHER, SELFPAY | PROVIDERS: PCP Internal Medicine; Visit Provider Internal Medicine | DX: N17.9 Acute kidney failure, unspecified (principal); R60.9 Edema, unspecified; M54.9 Dorsalgia, unspecified; G89.29 Other chronic pain; Z85.818 Personal history of malignant neoplasm of other sites of lip, oral cavity, and pharynx | CPT/HCPCS: 99212 ==

== ENCOUNTER 2025-04-03 13:50 | Outpatient (REF) | payer MEDICARE, OTHER, SELFPAY ==
[2025-04-03 18:02] LABS: Anion Gap 15 (12-20); Blood Urea Nitrogen 22 mg/dL (9-16); Calcium 9.7 mg/dL (8.4-10.2); Carbon Dioxide 31 mmol/L (22-29); Chloride 100 mmol/L (96-108); Estimated Glomerular Filt Rate 46; Glucose Random 100 mg/dL (60-115); Potassium 4.6 mmol/L (3.3-5.1); Sodium 141 mmol/L (135-145)
[2025-04-05 00:03] LABS: NT-proBNP 290 pg/mL (<125)
== END 2025-04-03 13:51 | disposition home or self-care (01) ==
LOC: HO.WFDLDS 13:50
PROVIDERS: Visit Provider Internal Medicine
DX: R60.9 Edema, unspecified (principal)
CPT/HCPCS: 36415; 80048; 83880

== ENCOUNTER 2025-04-12 13:42 | Outpatient (AMB) | payer MEDICARE, OTHER, SELFPAY ==
[2025-04-12 13:47] VITALS: BP 119/62; PULSE 60; O2SAT 93; BMI 32.9
--- NOTE | 2025-04-12 13:47 | MHC.OFFVIS ---
Vital Signs 04/12/25 13:47 Height 5 ft 3 in Weight 186 lb BMI 32.9 BP 119/62 Blood Pressure Location Rt brachial Position Sitting Pulse 60 Pulse Source Pulse Oximeter Pulse Oximetry (%) 93 Oxygen Delivery Method Room Air Intake Visit Reasons: copd Allergies amoxicillin (From Augmentin) Allergy (Severe, Verified 04/12/25 13:53) Angioedema clarithromycin (From Biaxin) Allergy (Severe, Verified 04/12/25 13:53) Angioedema clavulanic acid (From Augmentin) Allergy (Severe, Verified 04/12/25 13:53) Angioedema erythromycin base Allergy (Severe, Verified 04/12/25 13:53) Angioedema penicillin G Allergy (Severe, Verified 04/12/25 13:53) shock polyethylene glycol 3350 Allergy (Severe, Verified 04/12/25 13:53) Angioedema sulfadiazine Allergy (Severe, Verified 04/12/25 13:53) Angioedema tetracycline Allergy (Severe, Verified 04/12/25 13:53) Angioedema tramadol Allergy (Severe, Verified 04/12/25 13:53) vomit venlafaxine (From Effexor) Allergy (Severe, Verified 04/12/25 13:53) Angioedema tizanidine Allergy (Mild, Verified 04/12/25 13:53) unknown ciprofloxacin Allergy (Unknown, Verified 04/12/25 13:53) Unknown adhesive bandaid Allergy (Severe, Uncoded 04/03/25 12:41) Blister chapstick Allergy (Severe, Uncoded 04/03/25 12:41) unknown tania Allergy (Severe, Uncoded 04/03/25 12:41) Rash HPI HPI copd: Details: 69-year-old lady, former 30+ pack-year smoker, quit 2004, with underlying pulmonary emphysema unlikely COPD, also incidentally noted 1 cm right lung nodule referred for pulmonary evaluation. Patient also complains of dyspnea on exertion after walking for several 100 yds. She has been using Breo, Spiriva, and albuterol MDI with suboptimal control of her symptoms. Patient has been employed without exposure to industrial dusts. She does have family history of emphysema. Patient states that she has had recent pulmonary function test in [facility]. After the last office visit patient was started on Breo, Spiriva, and albuterol MDI with significant improvement in her symptom control. Her follow-up CT chest is pending for the next week. [facility] Medical History Salivary gland disorder Multiple falls Back pain History of salivary gland cancer GERD (gastroesophageal reflux disease) TIA (transient ischemic attack) Asthma Anxiety High cholesterol OA (osteoarthritis) Mucoepidermoid carcinoma Depression Thyroid nodule Diabetes mellitus Rheumatoid arthritis Gout Arthritis Allergies Surgical History History of back surgery Hx of repair of right rotator cuff Hx of partial thyroidectomy Family History Mother HTN (hypertension) Social History Housing: House Are you a primary care consultant to a significant other at home: No Do you presently have visiting nurse or other home services: No Alcohol intake: current Alcohol intake frequency: holidays/special occasions only Patient Tobacco Use Status: Former Tobacco user Cigarette Packs Per Day: 1 Years Smoked: 25, quit 2004, started around age 17, 2PPD e-Cigarette/Vaping Use: Never Used Second Hand Smoke Exposure: No service: Yes Current occupational status: retired Cognitive needs: No Hearing needs: No Vision needs: No Review of Systems Const Denies daytime sleepiness, Denies excessive sweating, Denies fatigue, Denies fever(s), Denies lethargy, Denies malaise, Denies night sweats, Denies snoring and Denies weight loss Eyes Denies blurry vision and Denies itchy eyes ENT Denies nasal congestion, Denies post nasal drip, Denies sinus pain, Denies sinus pressure and Denies other ( Thrush) Card Denies chest pain, Denies pedal edema, Denies dyspnea, Denies orthopnea and Denies paroxysmal nocturnal dyspnea Resp Denies cough, Denies hemoptysis, Denies excessive phlegm production, Denies dyspnea, Denies snoring and Denies wheezing GI Denies abdominal pain and Denies heartburn Musc Denies myalgias, Denies arthralgias and Denies joint swelling Skin/Breast Denies rash Neuro Denies memory loss and Denies seizure-like activity Psych Denies abnormal sleep pattern, Denies anxiety and Denies memory loss Endo Denies excessive sweating, Denies fatigue and Denies heat intolerance Topher/Lymph Denies easy bruising Aller/Immun Denies itchy eyes, Denies seasonal rhinorrhea and Denies wheezing Physical Exam Vital Signs: Last Vital Signs Pulse 60 04/12/25 13:47 BP 119/62 04/12/25 13:47 Pulse Ox 93 04/12/25 13:47 Oxygen Delivery Method Room Air 04/12/25 13:47 BMI result Body Mass Index 32.9 Const General: no acute distress and alert Nutritional Appearance: not obese Orientation/consciousness: Other orientation findings ( oriented) HEENT Head: Yes atraumatic Eyes General: appearance normal, both eyes and all related structures Sclerae: sclerae normal EOM: EOMs intact bilaterally Neck Neck: Yes supple Lymphatic: no lymphadenopathy noted Resp Effort & Inspection: normal respiratory effort and no use of accessory muscles Auscultation: clear to auscultation bilaterally Cardio Rate: regular rate Rhythm: regular rhythm Heart sounds: no gallops, no murmurs and no rubs Skin General skin exam: other ( warm) Extrem General: No clubbing, No cyanosis and No edema Assessment & Plan Assessment & Plan (1) COPD (chronic obstructive pulmonary disease): Code(s): J44.9 - Chronic obstructive pulmonary disease, unspecified Category: Medical Qualifiers: COPD type: emphysema Emphysema type: centrilobular Qualified Code(s): J43.2 - Centrilobular emphysema Plan: Now well controlled on Breo, Spiriva, and albuterol MDI. Continue current regimen. (2) Lung nodule: Code(s): R91.1 - Solitary pulmonary nodule Category: Medical Plan: Previously stable on 3 months follow-up, six-month follow-up CT chest is pending. Coding Level of Care Code Est Pt Level 4 (41046) Diagnoses Centrilobular emphysema J43.2 COPD type: emphysema Emphysema type: centrilobular Lung nodule R91.1
--- OUTSIDE RECORDS SUMMARY | 2025-04-12 16:14 | XMS_ITS | Clinical Summary ---
Author Organization [facility] Address [address] [place] [address] Care Team Providers Care Rackman Name Role Phone Aditi Nguyen MD Primary Care Provider [phone] Surgical History Surgery Date Site/Laterality Comments BACK [...] benign OTHER SURGICAL HISTORY 05/07/2018 Right PROCEDURE: TN EXC PRTD JOVITA/PRTD GLND LAT LOBE W/O [...] Chronic diastolic CHF (conge stive heart failure) ([facility] V24, [facility] V28) 09/12/2015 DX:Chronic diastol ic CHF (congestive heart failure) ([facility]) Osteoarthritis 08/26/2016 DX:Osteoarthriti s Family History Medical [...] age to complete this topic Care Teams Rackman Relationship Specialty Start Date End Date Aditi Nguyen MD PCP - General Internal Medicine 08/19/15
== END 2025-04-12 14:06 | disposition home or self-care (01) ==
LOC: HO.HPS 13:43
PROVIDERS: PCP Internal Medicine; Visit Provider Internal Medicine Pulmonary Disease
DX: J43.2 Centrilobular emphysema (principal); R91.1 Solitary pulmonary nodule
CPT/HCPCS: 99214

== ENCOUNTER → 2025-04-12 13:42 | Outpatient (BNVA) | payer MEDICARE, OTHER, SELFPAY | PROVIDERS: PCP Internal Medicine; Visit Provider Internal Medicine Pulmonary Disease | DX: J43.2 Centrilobular emphysema (principal); R91.1 Solitary pulmonary nodule | CPT/HCPCS: 99212 ==

== ENCOUNTER 2025-04-14 07:23 | Outpatient (REF) | payer MEDICARE, OTHER, SELFPAY ==
--- NOTE | ~2025-04-14 | CT_ITS ---
CLINICAL HISTORY: R91.8 - Other nonspecific abnormal finding of lung field CT chest without contrast Comparison: 09/06/2024 Findings: The heart size is normal. The visualized thyroid and mediastinum are unremarkable. 0.8 cm pleural-based right upper lobe pulmonary lesion is unchanged. No new consolidation or effusion. The upper abdomen is unremarkable. There is metallic debris within a fluid collection located between the right scapula and upper left chest. This is incompletely evaluated on the current study. Recommend imaging of the right shoulder to further evaluate beginning with plain radiographs. IMPRESSION: 1. Stable right upper lobe pleural-based lesion, possibly benign. 2. Indeterminate lesion between right scapula and upper chest possibly arising from shoulder. Clinically appropriate further evaluation recommended. This document has been electronically signed by: Surendra Arce MD on 04/15/2025 08:54:04
--- OUTSIDE RECORDS SUMMARY | 2025-04-14 07:26 | XMS_ITS | Clinical Summary ---
Author Organization [facility] [[email or web address]] Address [address] [place] [address] Care Team Providers Care Boats Renter Name Role Phone Aditi Nguyen MD Primary Care Provider [phone] Surgical History Surgery Date Site/Laterality Comments BACK [...] benign OTHER SURGICAL HISTORY 05/07/2018 Right PROCEDURE: MS EXC PRTD JOVITA/PRTD GLND LAT LOBE W/O [...] Chronic diastolic CHF (conge stive heart failure) ([facility] V24, [facility] V28) 09/12/2015 DX:Chronic diastol ic CHF (congestive heart failure) ([facility]) Osteoarthritis 08/26/2016 DX:Osteoarthriti s Family History Medical [...] age to complete this topic Care Teams Boats Renter Relationship Specialty Start Date End Date Aditi Nguyen MD PCP - General Internal Medicine 08/19/15
== END 2025-04-14 07:24 | disposition home or self-care (01) ==
LOC: HO.CT 07:23
PROVIDERS: PCP Internal Medicine; Visit Provider Internal Medicine
DX: R91.8 Other nonspecific abnormal finding of lung field (principal)
CPT/HCPCS: 71250

== ENCOUNTER → 2025-04-14 07:27 | Outpatient (BNV) | payer MEDICARE, OTHER, SELFPAY | PROVIDERS: PCP Internal Medicine; Visit Provider Specialist | DX: R91.8 Other nonspecific abnormal finding of lung field (principal) | CPT/HCPCS: 71250 ==

== ENCOUNTER 2025-06-16 08:42 | Outpatient (REF) | payer MEDICARE, OTHER, SELFPAY ==
--- OUTSIDE RECORDS SUMMARY | 2025-06-16 09:36 | XMS_ITS | Clinical Summary ---
Author Organization [facility] Address [address] [address] Phone Care Team Providers Care Appointment Scheduler Name Role Phone Aditi Sands MD Primary Care Provider Allergies Active Allergy Reactions Criticality Noted Date Comments Allopurinol 12/11/2023 Amoxicillin-Pot Clavulanate 12/11/19 24 Ciprofloxacin 12/11/2023 Venlafaxine 12/11/2023 Erythromycin 12/11/2023 Morphine 12/11/2023 Penicillins 12/11/2023 Sulfasalazine 12/11/2023 Tetracycline 12/11/2023 Tramadol 12/11/2023 Medications fluticasone propionate (FLONASE) 50 mcg/actuation nasal spray 1 spray by Nasal route. 10/23/19 24 Active oxyCODONE HCl 10 mg Tab 10 mg. 11/23/19 24 Active potassium chloride (K-TAB) 20 mEq TbER ER tablet Take 20 mEq by mouth. 10/15/20 23 Active ALPRAZolam (NIRAVAM) 0.5 MG disintegrating tablet Take 0.5 mg by mouth nightly at bedtime as needed for anxiety. Active aspirin 81 MG EC tablet Take 81 mg by mouth daily. Active magnesium hydroxide 400 mg (170 mg magnesium) Chew Take 400 mg by mouth. Active cholecalciferol (VITAMIN D3) 2,000 unit capsule Take 2,000 Units by mouth daily. Active omeprazole (PRILOSEC) 40 MG capsule Take 40 mg by mouth daily. Active amitriptyline (ELAVIL) 25 MG tablet Take 25 mg by mouth nightly at bedtime. Active sertraline (ZOLOFT) 25 MG tablet Take 25 mg by mouth daily. Active nadoloL (CORGARD) 80 MG tablet Take 80 mg by mouth daily. Active DULoxetine (CYMBALTA) 60 MG capsule Take 60 mg by mouth daily. Active dilTIAZem 180 mg 24hr Take by mouth daily. Active levothyroxine (SYNTHROID,LEVOTHR OID) 25 MCG tablet Take 25 mcg by mouth every morning. Active acetaminophen (TYLENOL) 650 MG CR tablet Take 1,300 mg by mouth every 8 (eight) hours as needed for pain (specific location in comments). Active febuxostat (ULORIC) 40 mg tabletIndications: Idiopathic chronic gout of multiple sites without tophus Take 1 tablet (40 mg total) by mouth daily. 90 tablet 2 12/17/19 24 Active gabapentin (NEURONTIN) 100 MG capsuleIndications :neuropathic pain Take 100 mg by mouth 3 (three) times a day. Indications: neuropathic pain Active leflunomide (ARAVA) 20 MG tabletIndications: Rheumatoid arthritis involving multiple sites with positive rheumatoid factor Take 1 tablet (20 mg total) by mouth daily. 90 tablet 2 12/17/19 24 Active Active Problems Problem Noted Date Diagnosed Date Rheumatoid arthritis involvi ng multiple sites with positive rheumatoid factor 12/17/2023 Assessment & Plan (05/19/2024 2:18 PM EDT): Seropositive rheumatoid arthritis fairly stable on daily leflunomide. She does have mild active synovitis in her hands and feet. I gave her an intramuscular injection of triamcinolone 40 mg to help relieve her stiffness and swelling. Assessment & Plan (12/17/2023 3:01 PM EST): Seropositive rheumatoid arthritis well-controlled on daily leflunomide with no active swelling. Sent her for some baseline labs today. Primary osteoarthritis involving multiple joints 12/17/2023 Assessment & Plan (05/19/2024 2:17 PM EDT): Osteoarthritis in multiple joints most bothersome in her lower back. Continue with Tylenol 650 as needed. She is also on oxycodone several times a day from Dr. Nguyen. Assessment & Plan (12/17/2023 3:01 PM EST): Degenerative osteoarthritis in multiple areas most bothersome in the lower back. She takes Tylenol as needed and is also on oxycodone from Dr. Nguyen. Idiopathic chronic gout of multiple sites withmary holguin 12/17/2023 Assessment & Plan (05/19/2024 2:17 PM EDT): Chronic gout well-controlled on febuxostat daily. She has not had a gout flare in quite a while. Assessment & Plan (12/17/2023 3:00 PM EST): Chronic gout well-controlled on febuxostat with no recent flares. Family History Medical History Relation Comments Arthritis Father Heart failure Father Kidney disease Mother Relation Status Comments Father Mother Social History Tobacco Use Types Packs/Day Years Used Date Smoking Tobacco: Former Cigarettes Q uit: 2004 Smokeless Tobacco: Never Tobacco Cessation:Counseling Given: Not Answered Alcohol Use Standard Drinks/Week Comments Yes 0 (1 standard drink = 0.6 oz pur e alcohol) socially Education Answer Date Recorded Are you interested in more education? Not on aubrey e 11/18/2023 Are you concerned about learning? Not on file 11/18/2023 No 11/18/2023 No 11/18/2023 Digital Access Answer Date Recorded No 11/18/2023 No 11/18/2023 Reliable internet access at home? Not on file 11/18/2023 Device with a working camera? Not on file Comments Unknown Sex and Gender Information Value Date Recorded Sex Assigned at Not on file Legal Sex Female 9:57 PM EDT Gender Identity Not on file Sexual Orientation Not on file Last Filed Vital Signs Vital Sign Reading Time Taken Comments Blood Pressure 110/78 05/19/2024 1:30 PM EDT Pulse 106 05/19/2024 1:30 PM EDT Temperature - - Respiratory Rate - - Oxygen Saturation 95% 05/19/2024 1:30 PM EDT Inhaled Oxygen Concentration - - Weight 87.1 kg (192 lb) 05/19/2024 1:30 PM EDT Height 160 cm (5' 3 ) 05/19/2024 1:30 PM EDT Body Mass Index 34.01 05/19/2024 1:30 PM EDT Plan of Treatment Health Maintenance Due Date Last Done Comments LIPID PANEL 1954 TSH LEVEL 1954 COVID-19 VACCINE (#1) 1959 DEPRESSION SCREENING 1966 SMOKING Hx and SMOKELESS TOBACCO SCREENING 1967 HEPATITIS C SCREENING 01/29/1972 ZOSTER VACCINES (1 of 2) 1973 MAMMOGRAM 1994 COLOGUARD 1999 COLONOSCOPY 1999 COLORECTAL CANCER SCREENING 1999 FIT TEST 1999 FOBT 1999 SIGMOIDOSCOPY 1999 VIRTUAL COLONOSCOPY 1999 RSV VACCINE (1 - Risk 60-74 years 1-dose series) 2014 OSTEOPOROSIS SCREENING INITI AL (ONE-TIME) 2019 PNEUMOCOCCAL VACCINES (50+ years) (2 of 2 - PPSV23) 11/08/2019 09/13/2019 POTASSIUM LEVEL 05/19/2025 05/19/2024, 12/17/2023 Adult Td,Tdap Booster 12/30/2033 12/31/2023 , 05/28/2012 HEPATITIS A VACCINES Aged Out No long er eligible based on patient's age to complete this topic HIB VACCINES Aged Out No longer eligi ble based on patient's age to complete this topic MENINGOCOCCAL VACCINES (ACWY) Aged Out No longer eligible based on patient's age to complete this topic MENINGOCOCCAL VACCINES (B) Aged Out N o longer eligible based on patient's age to complete this topic Medical Devices Not on file Procedures Procedure Name Priority Date/Time Associated Diagnosis Comments COMPREHENSIVE METABOLIC PANEL Routine 05/19/2024 2:14 PM EDT Rheumatoid arthritis involving multiple sites with positive rheumatoid factor from Last 3 Months or Most Recently Relevant to Health Maintenance Results * (ABNORMAL) Comprehensive metabolic panel (05/19/2024 2:14 PM EDT) SODIUM 138 133 - 146 mmol/L [facility] POTASSIUM 4.7 3.3 - 5.1 mmol/L [facility] CHLORIDE 100 96 - 108 mmol/L [facility] CO2 27 21 - 35 mmol/L [facility] BUN 24(H) 6 - 19 mg/dL [facility] CREATININE 1.10 0.5 - 1.5 mg/dL [facility] GLUCOSE 114(H) 70 - 99 mg/dL [facility] ALBUMIN 4.0 3.9 - 4.8 g/dL [facility] TOTAL PROTEIN 7.7 6.5 - 8.0 g/dL [facility] CALCIUM 9.7 8.4 - 10.3 mg/dL [facility] ALKALINE PHOSPHATASE 70 39 - 117 U/L [facility] TOTAL BILIRUBIN 0.5 0.0 - 1.2 mg/dL [facility] AST 41(H) 0 - 37 U/L [facility] ALT 23 0 - 40 U/L [facility] GLOBULIN 3.7 1 - 4.8 g/dL [facility] EGFR 54(L) >59 mL/min/1.7 3m2 [facility] Comment:Estimated glomerular filtration rate calculated using the CKD-EPI refit equation. ANION GAP 16 10 - 20 mmol/L [facility] Blood 05/19/2024 2:14 PM EDT 05/19/2024 2:20 PM EDT Jimmy Lopez MD LAB BLOOD ORDERABLES nal Result [facility] [address] [place] [address] from Last 3 Months or Most Recently Relevant to Health Maintenance Insurance MEDICARE PART A & B [facility] [place] [address] MEDICARE PART A & B [facility] [place] [address] MEDICARE PART A & B [facility] [place] [address] MEDICARE PART A & B [facility] [place] [address] MEDICARE PART A & B [facility] Address: [facility] ATTN:[facility] CLAIMS [address] [address] [place] [address] MEDICARE PART A & B Member Subscriber Plan / Payer (Ef fective 2019-Present) Name:Krishna Mijares Member ID:[id number] Relation to Subscriber:Self Name:Krishna Mijares Subscriber ID:[id number] Payer ID:[id number] Group ID:Not on file Type:Medicare Address: [employer] [address] [place] [id number] [place] [address] Care Teams Appointment Scheduler Relationship Specialty Start Date End Date Aditi Sands MD PCP - General Internal Medicine 11/18/23 Additional Source Comments The information contained in this document represents components of the legal health record. It is not the complete legal health record.[facility]
--- OUTSIDE RECORDS SUMMARY | 2025-06-16 09:36 | XMS_ITS | Clinical Summary ---
Author Organization [facility] Address [address] [place] [address] Care Team Providers Care Tool And Die Inspector Name Role Phone Aditi Nguyen MD Primary Care Provider [phone] Surgical History Surgery Date Site/Laterality Comments BACK [...] benign OTHER SURGICAL HISTORY 05/07/2018 Right PROCEDURE: [place] EXC PRTD JOVITA/PRTD GLND LAT LOBE W/O [...] Chronic diastolic CHF (conge stive heart failure) ([facility] V[facility], [facility] V28) 09/12/2015 DX:Chronic diastol ic CHF (congestive heart failure) ([facility]) Osteoarthritis 08/26/2016 DX:Osteoarthriti s Family History Medical [...] Used Date Smoking Tobacco: Former Cigarettes 1.5 20.4 S tarted: 01/29/2005 Smokeless Tobacco: Never Alcohol [...] COVID-19 Vaccine (1 - 2023- season) 2024 Depression Screening 10/19/2024 Influenza Vaccine (#1) 2025 9, 07/08/2018, 07/29/2017, Additional history exists RSV [...] age to complete this topic Care Teams Tool And Die Inspector Relationship Specialty Start Date End Date Aditi Nguyen MD PCP - General Internal Medicine 08/19/15
[2025-06-16 09:47] LABS: Blood Urea Nitrogen 43 mg/dL (9-16); Estimated Glomerular Filt Rate 29
== END 2025-06-16 08:43 | disposition home or self-care (01) ==
LOC: HO.CT 08:42
PROVIDERS: PCP Internal Medicine; Visit Provider Urology
DX: N20.0 Calculus of kidney (principal); N28.9 Disorder of kidney and ureter, unspecified; N17.9 Acute kidney failure, unspecified; R93.429 Abnormal radiologic findings on diagnostic imaging of unspecified kidney; R31.29 Other microscopic hematuria
CPT/HCPCS: 36415; 82565; 84520

== ENCOUNTER 2025-07-10 13:54 | Outpatient (AMB) | payer MEDICARE, OTHER, SELFPAY ==
--- NOTE | 2025-07-10 14:00 | A.OFFPC_ITS ---
Vital Signs 07/10/25 14:12 Height 5 ft 3 in Weight 182 lb 6 oz BMI 32.3 BP 98/62 Blood Pressure Location Rt brachial Position Sitting Respiration 14 Pulse 80 Pulse Source Pulse Oximeter Pulse Oximetry (%) 95 Oxygen Delivery Method Room Air Intake Visit Reasons: follow up Intake Note: Follow up. Had heartburn that started Thursday night and now has a cough. Advanced Practice Professional Required: No Allergies amoxicillin (From Augmentin) Allergy (Severe, Verified 07/10/25 14:12) Angioedema clarithromycin (From Biaxin) Allergy (Severe, Verified 07/10/25 14:12) Angioedema clavulanic acid (From Augmentin) Allergy (Severe, Verified 07/10/25 14:12) Angioedema erythromycin base Allergy (Severe, Verified 07/10/25 14:12) Angioedema penicillin G Allergy (Severe, Verified 07/10/25 14:12) shock polyethylene glycol 3350 Allergy (Severe, Verified 07/10/25 14:12) Angioedema sulfadiazine Allergy (Severe, Verified 07/10/25 14:12) Angioedema tetracycline Allergy (Severe, Verified 07/10/25 14:12) Angioedema tramadol Allergy (Severe, Verified 07/10/25 14:12) vomit venlafaxine (From Effexor) Allergy (Severe, Verified 07/10/25 14:12) Angioedema tizanidine Allergy (Mild, Verified 07/10/25 14:12) unknown ciprofloxacin Allergy (Unknown, Verified 07/10/25 14:12) Unknown adhesive bandaid Allergy (Severe, Uncoded 07/10/25 14:12) Blister chapstick Allergy (Severe, Uncoded 07/10/25 14:12) unknown tania Allergy (Severe, Uncoded 07/10/25 14:12) Rash Tobacco use date assessed: 07/10/25 Fall risk assessment: No Falls in past year Last assessed Fall Risk: 07/10/25 Dental Screening Dental Screen Date: 03/27/25 HPI HPI Comments History of Present Illness Details The patient is a 70 year old female with a past medical history of chronic pain, DDD spine, RA, prediabetes/diabetes, depression/grief, hypertension, hypothyroid presenting for follow up CV: On diltiazem, nadolol, restarted furosemide-taking 20mg daily. Weight is down. Cr has bumped. Previously was on loop diuretic and metazolone. Echo 2022 with EF 55-60% and PAP 40-45%. Last visit discussed recurrent right cervical LN swelling. She did have CT neck last year with non specific cervcal LN. She has a history of salivary gland malignancy in 2017/2017. She was referred to ENT Neuro: no interval falls. She is using a walking stick. Notes over the past few months she has had had a handful of episodes where she randomly falls. This has usually happened when she has reached for an item but not bent down or at the waist. She somehow then suddenly falls. She denies any vertigo, dizziness, lightheadedness, palpitations, chest pain. -She recently was seen by neurology but the note is not yet available.MRI brain chronic small vessel disease however the several lesions are perpendicular lateral ventricle raising concern for demyelination. Correlate clinically. COPD: She is following with pulmonary. PFTs 2022. CT chest last year-COPD on imaging. Chronic pain: Maintained on chronic opioid therapy. History of spinal surgery. Follows rheumatology. MRI right shoulder-nondiagnostic exam due to severe metal artifact relating to right shoulder replacement hardware. Severe atrophy of rotator cuff musculature. Hypothyroid-on levothyroxine 25 mcg daily Diabetes-A1Cs fluctuate btw diabetes and prediabetes. She refuses medications BH: Psych referral previously placed. Son says mom can spend whole days without going out, staying in bed. She thinks she continues to deal with normal grief. She continues on duloxetine Urologic: Recent successful cyroablation therapy for lesion. She is following with urology She was hospitalized from January 01-January 04 2025. Presented with cough with worsening congestion and shortness of breath. Oxygen sat 89% on RA. Started on 3L. Leukocytosis 16.9. BNP 1156 troponin . EKG ok. CXR with pulmonary edema versis viral pneumonia though more likely pnuemonia. Started on levaquin. We resumed abx yesterday for increased coughing. Some residual weakness, memory issue. Son is worried about her forgetting medications 1.Patient was hospitalized from 06/30-06/19. Presented with confusion/lethargy. Wad found to have PEYMAN, possible UTI, COPD exacerbation, possible pna. She was hypoxic. She required supplemental oxygen during admission. Almost sent home with 2L at rest and 6L on ambulation but ended up cleared by RT her last day. Lethargy improved with 02 and fluids. She had CT chest with emphysematous changes. She was started on Breo & Spiriva, also on prednisone during admission. Right fissural nodule on CT with recommendation for 3 month f/up, PET, or biopsy. Referred to pulmonary today. Incidental left adrenal adenoma 0.6cm with recommendation for follow up. She was recommended to decrease metolazone to 2.5 MWF, continue potassium, nadolol restarted, continue diltiazem. Cr at discharge 1.3. 2.Over the summer had noticed enlargemen t and discomfort of the lymph nodes in her neck, particularly in the right upper neck. She had issues in the past with abnormality of the parotid. She had u/s of the neck with a few mildly prominent morphologically normal and not pathologically enlarged lymph nodes the right neck at level once. Blood work was fairly reassuring. Mammo & colonoscopy-non compliant ROS see HPI PHYSICAL EXAM: GENERAL: Alert and oriented x 3. NAD EYES: EOMI. Anicteric. HENT: Moist mucous membranes. LUNGS: Clear to auscultation bilaterally. CARDIOVASCULAR: Regular rate and rhythm. No murmur. No JVD. ABDOMEN: Soft, non-tender +bs EXTREMITIES: No edema. Non-tender. SKIN: No rashes or lesions. Warm. NEUROLOGIC: Unable to tandem walk, difficulty balancing one leg PSYCHIATRIC: Cooperative. Appropriate mood and affect [facility] Medical History Salivary gland disorder Multiple falls Back pain History of salivary gland cancer GERD (gastroesophageal reflux disease) TIA (transient ischemic attack) Asthma Anxiety High cholesterol OA (osteoarthritis) Mucoepidermoid carcinoma Depression Thyroid nodule Diabetes mellitus Rheumatoid arthritis Gout Arthritis Allergies Surgical History History of back surgery Hx of repair of right rotator cuff Hx of partial thyroidectomy Family History Mother HTN (hypertension) Social History Housing: House Are you a primary childcare provider to a significant other at home: No Do you presently have visiting nurse or other home services: No Alcohol intake: current Alcohol intake frequency: holidays/special occasions only Patient Tobacco Use Status: Former Tobacco user Cigarette Packs Per Day: 1 Years Smoked: 25, quit 2004, started around age 17, 2PPD e-Cigarette/Vaping Use: Never Used Second Hand Smoke Exposure: No service: Yes Current occupational status: retired Cognitive needs: No Hearing needs: No Vision needs: No Questionnaire Thrive Questionnaire Date Thrive assessed: 02/27/25 I am a: Patient What is your living situation today?: I have a steady place to live Within the past 12 months, did the food you bought not last and you didn't have the money to get more?: Never true Within the past 12 months, did you worry whether your food would run out before you got money to buy more?: I choose not to answer this question Do you have trouble paying for medicines?: I choose not to answer this question Do you have trouble getting transportation to medical appointments?: I choose not to answer this question Do you have trouble paying your heating and electricity bill?: No Do you have trouble taking care of your child, family member or friend?: No Do you have trouble with day-to-day activities such as bathing, preparing meals, shopping, managing finances, etc.?: No Are you currently unemployed and looking for a job?: No THRIVE Score: 0 TIMO-7 AMB Questionnaire TIMO-7 Date TIMO - 7 assessed: 07/05/24 Source: Developed by Drs. Min De La Rosa, Sharlene Burris, Mau Morales and colleagues, with an educational cl from [employer]. Physical exam (Primary Care) Vital Signs: Last Vital Signs Pulse 80 07/10/25 14:12 Resp 14 07/10/25 14:12 BP 98/62 07/10/25 14:12 Pulse Ox 95 07/10/25 14:12 Oxygen Delivery Method Room Air 07/10/25 14:12 BMI result Body Mass Index 32.3 Tobacco/Smoking Status: Tobacco use Status Tobacco use date assessed 07/10/25 07/10/25 14:15 Patient Tobacco Use Status Former Tobacco user 07/10/25 14:00 e-Cigarette/Vaping Use Never Used 07/10/25 14:00 Thrive Assessment: Date of Thrive Assessment Date Thrive assessed 02/27/25 07/10/25 14:00 Coding Level of Care Code Est Pt Level 4 (75594) Complex EM visit Add On G2211 Diagnoses Type 2 diabetes mellitus with diabetic polyneuropathy, without long-term current use of insulin E11.42 Diabetes mellitus complication detail: with polyneuropathy Diabetes mellitus complication status: with neurologic complications Diabetes mellitus longitudinal float operator insulin use: without longitudinal float operator use Diabetes mellitus type: type 2 Primary hypertension I10 Hypertension type: primary hypertension Kidney lesion N28.9 History of salivary gland cancer Z85.818 Rheumatoid arthritis involving multiple sites with positive rheumatoid factor M05.79 Rheumatoid arthritis location: multiple sites Rheumatoid factor presence: with rheumatoid factor Assessment & Plan Assessment & Plan (1) Diabetes mellitus: Code(s): E11.9 - Type 2 diabetes mellitus without complications Category: Medical Qualifiers: Diabetes mellitus complication detail: with polyneuropathy Diabetes mellitus complication status: with neurologic complications Diabetes mellitus longitudinal float operator insulin use: without jail use Diabetes mellitus type: type 2 Qualified Code(s): E11.42 - Type 2 diabetes mellitus with diabetic polyneuropathy (2) Hypertension: Code(s): I10 - Essential (primary) hypertension Category: Medical Qualifiers: Hypertension type: primary hypertension Qualified Code(s): I10 - Essential (primary) hypertension (3) Kidney lesion: Code(s): N28.9 - Disorder of kidney and ureter, unspecified Category: Medical (4) History of salivary gland cancer: Comment: removed salivary gland--2016 Code(s): Z85.818 - Personal history of malignant neoplasm of other sites of lip, oral cavity, and pharynx Category: Medical (5) Rheumatoid arthritis: Code(s): M06.9 - Rheumatoid arthritis, unspecified Category: Medical Qualifiers: Rheumatoid arthritis location: multiple sites Rheumatoid factor presence: with rheumatoid factor Qualified Code(s): M05.79 - Rheumatoid arthritis with rheumatoid factor of multiple sites without organ or systems involvement Plan DM-Monitor A1C. BH-stable on current medication Hypothyroid-stable on levothyroxine Chronic pain is stable on current medications. continue follow up rheumatology Non compliant with preventive care Orders: Orders TSH reflex Free T4 3 Months E11.42 - Type 2 diabetes mellitus with diabetic polyneuropathy, E78.00 - Pure hypercholesterolemia, unspecified, M05.79 - Rheumatoid arthritis with rheumatoid factor of multiple sites without organ or systems involvement Comprehensive Met. Panel 3 Months E11.42 - Type 2 diabetes mellitus with diabetic polyneuropathy, E78.00 - Pure hypercholesterolemia, unspecified, M05.79 - Rheumatoid arthritis with rheumatoid factor of multiple sites without organ or systems involvement Hemoglobin A1c 3 Months E11.42 - Type 2 diabetes mellitus with diabetic polyneuropathy, E78.00 - Pure hypercholesterolemia, unspecified, M05.79 - Rheumatoid arthritis with rheumatoid factor of multiple sites without organ or systems involvement Medications: New doxycycline monohydrate tolerates doxycycline 100 mg PO BID 14 caps 0RF Refilled oxycodone Partial fill upon patient request 10 mg PO Q4H PRN 168 tabs 0RF pain G89.29 - Other chronic pain, M05.79 - Rheumatoid arthritis with rheumatoid factor of multiple sites without organ or systems involvement, M54.9 - Dorsalgia, unspecified
[2025-07-10 14:12] VITALS: BP 98/62; PULSE 80; RESP 14; O2SAT 95; BMI 32.3
== END 2025-07-10 14:43 | disposition home or self-care (01) ==
LOC: HO.HMCFM 13:55
PROVIDERS: PCP Internal Medicine; Visit Provider Internal Medicine
DX: E11.42 Type 2 diabetes mellitus with diabetic polyneuropathy (principal); M05.79 Rheumatoid arthritis with rheumatoid factor of multiple sites without organ or systems involvement; I10 Essential (primary) hypertension; N28.9 Disorder of kidney and ureter, unspecified; Z85.818 Personal history of malignant neoplasm of other sites of lip, oral cavity, and pharynx

== ENCOUNTER → 2025-07-10 13:54 | Outpatient (BNVA) | payer MEDICARE, OTHER, SELFPAY | PROVIDERS: PCP Internal Medicine; Visit Provider Internal Medicine | DX: E11.42 Type 2 diabetes mellitus with diabetic polyneuropathy (principal); I10 Essential (primary) hypertension; N28.9 Disorder of kidney and ureter, unspecified; M05.79 Rheumatoid arthritis with rheumatoid factor of multiple sites without organ or systems involvement; Z85.818 Personal history of malignant neoplasm of other sites of lip, oral cavity, and pharynx | CPT/HCPCS: 99212 ==

== ENCOUNTER 2025-09-22 14:31 | Outpatient (REF) | payer MEDICARE, OTHER, SELFPAY ==
[2025-09-22 18:31] LABS: MANUAL DIFF FLAG NO
[2025-09-22 18:31] LABS: Appearance Urine Clear; Glucose Urine UA Negative (Negative); PH 5.0 (5.0-9.0); Specific Gravity - Urine 1.025 (1.005-1.025); UMIC TRIGGER UACC YES
[2025-09-22 18:37] LABS: Hematocrit 48.3 % (37.0-47.0); Hemoglobin 14.9 g/dl (12.0-16.0); Imm Gran Abs Auto 0.03 X10*3/uL (0.00-0.03); Imm Gran Pct Auto 0.3 % (0.0-0.4); Lymphocytes Absolute Auto 2.6 X10*3/uL (1.2-4.9); Mean Corpuscular HGB Conc 30.8 g/dl (31.0-35.0); Mean Corpuscular Hemoglobin 26.7 pg (27.0-33.0); Mean Corpuscular Volume 86.6 fL (80.0-98.0); NRBC Abs Auto 0.000 X10*3/uL (0.0-0.012); NRBC Pct Auto 0.0 /100WBC (0.0-0.2); Platelet Count 286 X10*3/uL (160-400); Red Blood Count 5.58 X10*6/uL (4.20-5.50); White Blood Count 9.2 X10*3/uL (4.8-10.8)
[2025-09-22 18:42] LABS: UACC Culture Trigger YES
[2025-09-22 19:09] LABS: Alanine Aminotransferase 17 U/L (0-31); Albumin Level 4.2 g/dL (3.5-5.0); Alkaline Phosphatase 63 U/L (39-117); Anion Gap 12 (12-20); Aspartate Amino Transferase 28 U/L (5-31); Blood Urea Nitrogen 30 mg/dL (9-16); Calcium 9.7 mg/dL (8.4-10.2); Carbon Dioxide 28 mmol/L (22-29); Chloride 104 mmol/L (96-108); Estimated Glomerular Filt Rate 35; Iron 104 mcg/dL (30-160); Percent Iron Saturation 28 % (15-50); Potassium 4.3 mmol/L (3.3-5.1); Sodium 140 mmol/L (135-145); Total Iron Binding Capacity 365 mcg/dL (228-428); Total Protein 7.4 g/dL (6.5-8.0); Unsaturated Iron Binding 261 ug/dL
[2025-09-23 00:09] LABS: Folate 7.2 ng/mL (> or = 4.0); Vitamin B12 202 pg/mL (200-900)
== END 2025-09-22 14:32 | disposition home or self-care (01) ==
LOC: HO.WFDLDS 14:31
PROVIDERS: PCP Internal Medicine; Visit Provider Internal Medicine
DX: K11.5 Sialolithiasis (principal); M05.79 Rheumatoid arthritis with rheumatoid factor of multiple sites without organ or systems involvement; Z85.818 Personal history of malignant neoplasm of other sites of lip, oral cavity, and pharynx; E11.42 Type 2 diabetes mellitus with diabetic polyneuropathy; E78.00 Pure hypercholesterolemia, unspecified; I10 Essential (primary) hypertension; R53.83 Other fatigue; R06.83 Snoring
CPT/HCPCS: 36415; 80053; 81001; 82607; 82746; 83036; 83540; 84443; 85025; 87086; 99212

== ENCOUNTER 2025-09-22 14:31 | Outpatient (AMB) | payer MEDICARE, OTHER, SELFPAY ==
--- NOTE | 2025-09-22 14:42 | A.OFFPC_ITS ---
Vital Signs 09/22/25 14:44 Height 5 ft 3 in Weight 183 lb 8 oz BMI 32.5 BP 108/58 L Blood Pressure Location Lt brachial Position Sitting Respiration 14 Pulse 59 Pulse Source Pulse Oximeter Temp 98 F Temp Source Oral Pulse Oximetry (%) 91 L Oxygen Delivery Method Room Air Intake Visit Reasons: Lump in jaw Intake Note: Lump in jaw right side. Was seen at the ER in July. Supervisor [employer] Required: No Allergies amoxicillin (From Augmentin) Allergy (Severe, Verified 09/22/25 14:45) Angioedema clarithromycin (From Biaxin) Allergy (Severe, Verified 09/22/25 14:45) Angioedema clavulanic acid (From Augmentin) Allergy (Severe, Verified 09/22/25 14:45) Angioedema erythromycin base Allergy (Severe, Verified 09/22/25 14:45) Angioedema penicillin G Allergy (Severe, Verified 09/22/25 14:45) shock polyethylene glycol 3350 Allergy (Severe, Verified 09/22/25 14:45) Angioedema sulfadiazine Allergy (Severe, Verified 09/22/25 14:45) Angioedema tetracycline Allergy (Severe, Verified 09/22/25 14:45) Angioedema tramadol Allergy (Severe, Verified 09/22/25 14:45) vomit venlafaxine (From Effexor) Allergy (Severe, Verified 09/22/25 14:45) Angioedema tizanidine Allergy (Mild, Verified 09/22/25 14:45) unknown ciprofloxacin Allergy (Unknown, Verified 09/22/25 14:45) Unknown adhesive bandaid Allergy (Severe, Uncoded 09/22/25 14:45) Blister chapstick Allergy (Severe, Uncoded 09/22/25 14:45) unknown tania Allergy (Severe, Uncoded 09/22/25 14:45) Rash Tobacco use date assessed: 09/22/25 Dental Screening Dental Screen Date: 03/27/25 HPI HPI Comments History of Present Illness Details The patient is a 70 year old female with a past medical history of chronic pain, DDD spine, RA, prediabetes/diabetes, depression/grief, hypertension, hypothyroid presenting for follow up She was in the ER at [facility] in Jul for right facial swelling and pain. CT scan consistent with right submandibular sialadenitis. Dilated right submandibular duct with probable obstructive 3mm stone. right maxillary and anterior ethmoid mucosal inflammatory disease with polypoid soft tissue thickening in the right nasal cavity suspected antrochoanal polyp. Placed on abx. Interval lessening of pain, mild residual swelling. 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 Needs ENT follow up CV: On diltiazem, nadolol, restarted furosemide-taking 20mg daily. Weight is down. Cr has bumped. Previously was on loop diuretic and metazolone. Echo 2022 with EF 55-60% and PAP 40-45%. Neuro: no interval falls. She is using a walking stick. Notes over the past few months she has had had a handful of episodes where she randomly falls. This has usually happened when she has reached for an item but not bent down or at the waist. She somehow then suddenly falls. She denies any vertigo, dizziness, lig htheadedness, palpitations, chest pain. -She recently was seen by neurology but the note is not yet available.MRI brain chronic small vessel disease however the several lesions are perpendicular lateral ventricle raising concern for demyelination. Correlate clinically. COPD: She is following with pulmonary. PFTs 2022. CT chest last year-COPD on imaging. MSK: OA, RA. Chronic pain- Maintained on chronic opioid therapy. History of spinal surgery. Follows rheumatology. MRI right shoulder-nondiagnostic exam due to severe metal artifact relating to right shoulder replacement hardware. Severe atrophy of rotator cuff musculature. Hypothyroid-on levothyroxine 25 mcg daily Diabetes-A1Cs fluctuate btw diabetes and prediabetes. She refuses medications BH: Psych referral previously placed. Son says mom can spend whole days without going out, staying in bed. She thinks she continues to deal with normal grief. She continues on duloxetine Urologic: Recent successful cyroablation therapy for lesion. She is following with urology She was hospitalized from January 01-January 04 2025. Presented with cough with worsening congestion and shortness of breath. Oxygen sat 89% on RA. Started on 3L. Leukocytosis 16.9. BNP 1156 troponin . EKG ok. CXR with pulmonary edema versis viral pneumonia though more likely pnuemonia. Started on levaquin. We resumed abx yesterday for increased coughing. Some residual weakness, memory issue. Son is worried about her forgetting medications 1.Patient was hospitalized from 06/30-06/19. Presented with confusion/lethargy. Wad found to have PEYMAN, possible UTI, COPD exacerbation, possible pna. She was hypoxic. She required supplemental oxygen during admission. Almost sent home with 2L at rest and 6L on ambulation but ended up cleared by RT her last day. Lethargy improved with 02 and fluids. She had CT chest with emphysematous changes. She was started on Breo & Spiriva, also on prednisone during admission. Right fissural nodule on CT with recommendation for 3 month f/up, PET, or biopsy. Referred to pulmonary today. Incidental left adrenal adenoma 0.6cm with recommendation for follow up. She was recommended to decrease metolazone to 2.5 MWF, continue potassium, nadolol restarted, continue diltiazem. Cr at discharge 1.3. 2.Over the summer had noticed enlargemen t and discomfort of the lymph nodes in her neck, particularly in the right upper neck. She had issues in the past with abnormality of the parotid. She had u/s of the neck with a few mildly prominent morphologically normal and not pathologically enlarged lymph nodes the right neck at level once. Blood work was fairly reassuring. Mammo & colonoscopy-non compliant ROS see HPI PHYSICAL EXAM: GENERAL: Alert and oriented x 3. NAD EYES: EOMI. Anicteric. HENT: Moist mucous membranes. LUNGS: Clear to auscultation bilaterally. CARDIOVASCULAR: Regular rate and rhythm. No murmur. No JVD. ABDOMEN: Soft, non-tender +bs EXTREMITIES: No edema. Non-tender. SKIN: No rashes or lesions. Warm. NEUROLOGIC: Unable to tandem walk, difficulty balancing one leg PSYCHIATRIC: Cooperative. Appropriate mood and affect [facility] Medical History Salivary gland disorder Multiple falls Back pain History of salivary gland cancer GERD (gastroesophageal reflux disease) TIA (transient ischemic attack) Asthma Anxiety High cholesterol OA (osteoarthritis) Mucoepidermoid carcinoma Depression Thyroid nodule Diabetes mellitus Rheumatoid arthritis Gout Arthritis Allergies Surgical History History of back surgery Hx of repair of right rotator cuff Hx of partial thyroidectomy Family History Mother HTN (hypertension) Social History Housing: House Are you a primary manager intensive care unit to a significant other at home: No Do you presently have visiting nurse or other home services: No Alcohol intake: current Alcohol intake frequency: holidays/special occasions only Patient Tobacco Use Status: Former Tobacco user Cigarette Packs Per Day: 1 Years Smoked: 25, quit 2004, started around age 17, 2PPD e-Cigarette/Vaping Use: Never Used Second Hand Smoke Exposure: No service: Yes Current occupational status: retired Cognitive needs: No Hearing needs: No Vision needs: No Questionnaire Thrive Questionnaire Date Thrive assessed: 02/27/25 I am a: Patient What is your living situation today?: I have a steady place to live Within the past 12 months, did the food you bought not last and you didn't have the money to get more?: Never true Within the past 12 months, did you worry whether your food would run out before you got money to buy more?: I choose not to answer this question Do you have trouble paying for medicines?: I choose not to answer this question Do you have trouble getting transportation to medical appointments?: I choose not to answer this question Do you have trouble paying your heating and electricity bill?: No Do you have trouble taking care of your child, family member or friend?: No Do you have trouble with day-to-day activities such as bathing, preparing meals, shopping, managing finances, etc.?: No Are you currently unemployed and looking for a job?: No THRIVE Score: 0 TIMO-7 AMB Questionnaire TIMO-7 Date TIMO - 7 assessed: 07/05/24 Source: Developed by Drs. Min De La Rosa, Sharlene Burris, Mau Morales and colleagues, with an educational cl from [employer]. Physical exam (Primary Care) Vital Signs: Last Vital Signs Temp 98 F 09/22/25 14:44 Pulse 59 09/22/25 14:44 Resp 14 09/22/25 14:44 BP 108/58 L 09/22/25 14:44 Pulse Ox 91 L 09/22/25 14:44 Oxygen Delivery Method Room Air 09/22/25 14:44 BMI result Body Mass Index 32.5 Tobacco/Smoking Status: Tobacco use Status Tobacco use date assessed 09/22/25 09/22/25 14:46 Patient Tobacco Use Status Former Tobacco user 09/22/25 14:44 e-Cigarette/Vaping Use Never Used 09/22/25 14:44 Thrive Assessment: Date of Thrive Assessment Date Thrive assessed 02/27/25 09/22/25 14:44 Coding Level of Care Code Complex visit Add On G2211 Diagnoses Sialolithiasis K11.5 History of salivary gland cancer Z85.818 Rheumatoid arthritis involving multiple sites with positive rheumatoid factor M05.79 Rheumatoid arthritis location: multiple sites Rheumatoid factor presence: with rheumatoid factor Assessment & Plan Assessment & Plan (1) Sialolithiasis: Code(s): K11.5 - Sialolithiasis Category: Medical (2) History of salivary gland cancer: Comment: removed salivary gland--2016 Code(s): Z85.818 - Personal history of malignant neoplasm of other sites of lip, oral cavity, and pharynx Category: Medical (3) Rheumatoid arthritis: Code(s): M06.9 - Rheumatoid arthritis, unspecified Category: Medical Qualifiers: Rheumatoid arthritis location: multiple sites Rheumatoid factor presence: with rheumatoid factor Qualified Code(s): M05.79 - Rheumatoid arthritis with rheumatoid factor of multiple sites without organ or systems invo lvement Plan 70 year old female for ER follow up Imaging reviewed. Recurrent salivary gland stone, history of salivary gland malignancy -ENT referral RA, OA stable on medications CV-BP well controlled. monitor Cr Orders: Orders Vitamin B12 and Folate 09/22/25 E11.42 - Type 2 diabetes mellitus with diabetic polyneuropathy, E78.00 - Pure hypercholesterolemia, unspecified, I10 - Essential (primary) hypertension, R06.83 - Snoring, R53.83 - Other fatigue Complete Blood Count Auto Diff 09/22/25 E11.42 - Type 2 diabetes mellitus with diabetic polyneuropathy, E78.00 - Pure hypercholesterolemia, unspecified, I10 - Essential (primary) hypertension, R06.83 - Snoring, R53.83 - Other fatigue IRON PROFILE 09/22/25 E11.42 - Type 2 diabetes mellitus with diabetic polyneuropathy, E78.00 - Pure hypercholesterolemia, unspecified, I10 - Essential (primary) hypertension, R06.83 - Snoring, R53.83 - Other fatigue UA CC w/rflx Micro + Cult 09/22/25 E11.42 - Type 2 diabetes mellitus with diabetic polyneuropathy, E78.00 - Pure hypercholesterolemia, unspecified, I10 - Essential (primary) hypertension, R06.83 - Snoring, R53.83 - Other fatigue Referrals Ear/Nose/Throat Referral K11.5 - Sialolithiasis, Z85.818 - Personal history of malignant neoplasm of other sites of lip, oral cavity, and pharynx
[2025-09-22 14:44] VITALS: BP 108/58; PULSE 59; RESP 14; TEMP 36.6; O2SAT 91; BMI 32.5
--- OUTSIDE RECORDS SUMMARY | 2025-09-22 18:38 | XMS_ITS | Clinical Summary ---
Author Organization [facility] Address [address] [place] [address] Care Team Providers Care Emanations Analysis Technician Name Role Phone Aditi Nguyen MD Primary Care Provider [phone] Surgical History Surgery Date Site/Laterality Comments BACK [...] benign OTHER SURGICAL HISTORY 05/07/2018 Right PROCEDURE: NE EXC PRTD JOVITA/PRTD GLND LAT LOBE W/O [...] diastolic CHF (conge stive heart failure) ([facility] V24, [facility] V28) 09/12/2015 DX:Chronic diastol ic CHF (congestive heart failure) ([facility]) Osteoarthritis 08/26/2016 DX:Osteoarthriti s Family [...] Used Date Smoking Tobacco: Former Cigarettes 1.5 20.6 S tarted: 01/29/2005 Smokeless Tobacco: Never Alcohol [...] Vaccine: 50+ Years (2 of 2 - PCV20 or PCV21) 09/13/2020 09/13/2019 Depression Screening 10/19/2024 COVID-19 Vaccine (1 - 2024- season) 2025 Influenza Vaccine (#1) 2025 0, 09/13/2019, 07/08/2018, Additional history exists RSV Immunization Adult Patients (1 - 1-dose 75+ series) 2029 DTaP,Tdap,and Td Vaccines (3 - Td or Tdap) 12/30/2033 12/31/2023, 05/28/2012 HIB Vaccines Aged Out No longer eligi [...] age to complete this topic Care Teams Emanations Analysis Technician Relationship Specialty Start Date End Date Aditi Nguyen MD PCP - General Internal Medicine 08/19/15
--- OUTSIDE RECORDS SUMMARY | 2025-09-22 18:38 | XMS_ITS | Clinical Summary ---
Author Organization [facility] Address [address] [address] Phone Care Team Providers Care Library Helper Name Role Phone Aditi Sands MD Primary [...] COLONOSCOPY 1999 RSV VACCINE (1 - Risk 50-74 years 1-dose series) 01/29/2004 OSTEOPOROSIS SCREENING INITIAL (ONE-TIME) 2019 PNEUMOCOCCAL VACCINES (50+ years) (2 of 2 - PPSV23, PCV20, or PCV21) 11/08/2019 09/13/2019 INFLUENZA VACCINE (#1) 2025 0, 09/13/2019, 07/08/2018, Additional history exists POTASSIUM LEVEL 05/19/2025 05/19/2024, 12/17/2023 Adult Td,Tdap Booster 12/30/2033 12/31/2023, 012 HEPATITIS A VACCINES Aged Out No long [...] Date/Time Associated Diagnosis Comments COMPREHENSIVE METABOLIC PANEL (CMP) Routine 05/19/2024 2:14 PM EDT Rheumatoid arthritis involving multiple sites with positive rheumatoid factor from Last 3 Months or Most Recently Relevant to Health Maintenance Results * (ABNORMAL) Comprehensive metabolic panel (05/19/2024 2:14 PM EDT) SODIUM 138 133 - 146 mmol/L [facility] POTASSIUM 4.7 3.3 - 5.1 mmol/L [facility] CHLORIDE 100 96 - 108 mmol/L [facility] CO2 27 21 - 35 mmol/L [facility] BUN 24(H) 6 - 19 mg/dL [facility] CREATININE 1.10 0.5 - 1.5 mg/dL [facility] GLUCOSE 114(H) 70 - 99 mg/dL [facility] ALBUMIN 4.0 3.9 - 4.8 g/dL [facility] TOTAL PROTEIN 7.7 6.5 - 8.0 g/dL [facility] CALCIUM 9.7 8.4 - 10.3 mg/dL [facility] ALKALINE PHOSPHATASE 70 39 - 117 U/L [facility] TOTAL BILIRUBIN 0.5 0.0 - 1.2 mg/dL [facility] AST 41(H) 0 - 37 U/L [facility] ALT 23 0 - 40 U/L [facility] GLOBULIN 3.7 1 - 4.8 g/dL [facility] EGFR 54(L) >59 mL/min/1.7 3m2 [facility] Comment:Estimated glomerular filtration rate calculated using the CKD-EPI refit equation. ANION GAP 16 10 - 20 mmol/L [facility] Blood 05/19/2024 2:14 PM EDT 05/19/2024 2:20 PM EDT us Jimmy Lopez MD LAB BLOOD BKR ORDERABLE S Final Result [address] [id number] from Last 3 Months or Most Recently Relevant to Health Maintenance Insurance MEDICARE PART A & B [facility] [place] [address] MEDICARE PART A & B [facility] [place] [address] MEDICARE PART A & [place] [address] MEDICARE PART A & B [facility] [place] [address] MEDICARE PART A & B [facility] [place] [address] MEDICARE PART A [place] [address] Care Teams Library Helper Relationship Specialty Start Date End Date Aditi Sands MD PCP - General Internal Medicine 11/18/23 Additional Source Comments The information contained in this document represents components of the legal health record. It is not the complete legal health record.[facility]
== END 2025-09-22 16:24 | disposition home or self-care (01) ==
LOC: HO.HMCFM 14:32
PROVIDERS: PCP Internal Medicine; Visit Provider Internal Medicine
DX: K11.5 Sialolithiasis (principal); M05.79 Rheumatoid arthritis with rheumatoid factor of multiple sites without organ or systems involvement; E11.42 Type 2 diabetes mellitus with diabetic polyneuropathy; Z85.818 Personal history of malignant neoplasm of other sites of lip, oral cavity, and pharynx

== ENCOUNTER 2025-10-16 14:24 | Outpatient (AMB) | payer MEDICARE, OTHER, SELFPAY ==
--- NOTE | 2025-10-16 14:28 | A.OFFPC_ITS ---
Vital Signs 10/16/25 14:34 10/16/25 15:01 Height 5 ft 3 in Weight 183 lb BMI 32.4 BP 156/100 H 148/68 H Blood Pressure Location Lt brachial Position Sitting Respiration 16 Pulse 81 Pulse Source Pulse Oximeter Temp 97.6 F Temp Source Oral Pulse Oximetry (%) 98 Oxygen Delivery Method Room Air Intake Visit Reasons: 3m fu Intake Note: patient here for 3 month follow up [employer] Person Required: No Is last menstrual period known: No Post menopausal: No Patient : No Allergies amoxicillin (From Augmentin) Allergy (Severe, Verified 10/16/25 14:33) Angioedema clarithromycin (From Biaxin) Allergy (Severe, Verified 10/16/25 14:33) Angioedema clavulanic acid (From Augmentin) Allergy (Severe, Verified 10/16/25 14:33) Angioedema erythromycin base Allergy (Severe, Verified 10/16/25 14:33) Angioedema penicillin G Allergy (Severe, Verified 10/16/25 14:33) shock polyethylene glycol 3350 Allergy (Severe, Verified 10/16/25 14:33) Angioedema sulfadiazine Allergy (Severe, Verified 10/16/25 14:33) Angioedema tetracycline Allergy (Severe, Verified 10/16/25 14:33) Angioedema tramadol Allergy (Severe, Verified 10/16/25 14:33) vomit venlafaxine (From Effexor) Allergy (Severe, Verified 10/16/25 14:33) Angioedema tizanidine Allergy (Mild, Verified 10/16/25 14:33) unknown ciprofloxacin Allergy (Unknown, Verified 10/16/25 14:33) Unknown adhesive bandaid Allergy (Severe, Uncoded 10/16/25 14:33) Blister chapstick Allergy (Severe, Uncoded 10/16/25 14:33) unknown tania Allergy (Severe, Uncoded 10/16/25 14:33) Rash Tobacco use date assessed: 10/16/25 Fall risk assessment: No Falls in past year Last assessed Fall Risk: 10/16/25 Dental Screening Dental Screen Date: 10/16/25 Did you have a dental visit in the last 12 months?: No Did you have a dental problem in the last 6 months where you did not have access to dental care?: No Was dental information given to patient?: Patient declined HPI HPI Comments History of Present Illness Details The patient is a 70 year old female with a past medical history of chronic pain, DDD spine, RA, prediabetes/diabetes, depression/grief, hypertension, hypothyroid presenting for follow up She was in the ER at [facility] in Jul for right facial swelling and pain. CT scan consistent with right submandibular sialadenitis. Dilated right submandibular duct with probable obstructive 3mm stone. right maxillary and anterior ethmoid mucosal inflammatory disease with polypoid soft tissue thickening in the right nasal cavity suspected antrochoanal polyp. Placed on abx. Interval lessening of pain, mild residual swelling. 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 Needs ENT follow up. Referral redirected to [facility]. CV: On diltiazem, nadolol, restarted furosemide-taking 20mg daily. Monitoring Cr which has fluctuated. Previously was on loop diuretic and metazolone. Echo 2022 with EF 55-60% and PAP 40-45%. Neuro: no interval falls. She is using a walking stick. Saw neurology. Notes over the past few months she has had had a handful of episodes where she randomly falls. This has usually happened when she has reached for an item but not bent down or at the waist. She somehow then suddenly falls. She denies any vertigo, dizziness, lightheadedness, palpitations, chest pain. -She recently was seen by neurology but the note is not yet available.MRI brain chronic small vessel disease however the several lesions are perpendicular lateral ventricle raising concern for demyelination. Correlate clinically. COPD: She is following with pulmonary. PFTs 2022. CT chest last year-COPD on imaging. MSK: OA, RA. Chronic pain- Maintained on chronic opioid therapy. Increased back pain, midline swelling with redness and pain History of spinal surgery. Follows rheumatology. MRI right shoulder-nondiagnostic exam due to severe metal artifact relating to right shoulder replacement hardware. Severe atrophy of rotator cuff musculature. Hypothyroid-on levothyroxine 25 mcg daily Diabetes-A1Cs fluctuate btw diabetes and prediabetes. She refuses medications BH: Psych referral previously placed. Son says mom can spend whole days without going out, staying in bed. She thinks she continues to deal with normal grief. She continues on duloxetine Urologic: Recent successful cyroablation therapy for lesion. She is following with urology She was hospitalized from January 01-January 04 2025. Presented with cough with worsening congestion and shortness of breath. Oxygen sat 89% on RA. Started on 3L. Leukocytosis 16.9. BNP 1156 troponin . EKG ok. CXR with pulmonary edema versis viral pneumonia though more likely pnuemonia. Started on levaquin. We resumed abx yesterday for increased coughing. Some residual weakness, memory issue. Son is worried about her forgetting medications 1.Patient was hospitalized from 06/30-06/19. Presented with confusion/lethargy. Wad found to have PEYMAN, possible UTI, COPD exacerbation, possible pna. She was hypoxic. She required supplemental oxygen during admission. Almost sent home with 2L at rest and 6L on ambulation but ended up c leared by RT her last day. Lethargy improved with 02 and fluids. She had CT chest with emphysematous changes. She was started on Breo & Spiriva, also on prednisone during admission. Right fissural nodule on CT with recommendation for 3 month f/up, PET, or biopsy. Referred to pulmonary today. Incidental left adrenal adenoma 0.6cm with recommendation for follow up. She was recommended to decrease metolazone to 2.5 MWF, continue potassium, nadolol restarted, continue diltiazem. Cr at discharge 1.3. 2.Over the summer had noticed enlargemen t and discomfort of the lymph nodes in her neck, particularly in the right upper neck. She had issues in the past with abnormality of the parotid. She had u/s of the neck with a few mildly prominent morphologically normal and not pathologically enlarged lymph nodes the right neck at level once. Blood work was fairly reassuring. Mammo & colonoscopy-non compliant ROS see HPI PHYSICAL EXAM: GENERAL: Alert and oriented x 3. NAD EYES: EOMI. Anicteric. HENT: Moist mucous membranes. LUNGS: Clear to auscultation bilaterally. CARDIOVASCULAR: Regular rate and rhythm. No JVD. ABDOMEN: Soft, non-tender +bs EXTREMITIES: No edema. Non-tender. SKIN: No rashes or lesions. Warm. NEUROLOGIC: Unable to tandem walk, difficulty balancing one leg. Using cane PSYCHIATRIC: Cooperative. Appropriate mood and affect [facility] Medical History Salivary gland disorder Multiple falls Back pain History of salivary gland cancer GERD (gastroesophageal reflux disease) TIA (transient ischemic attack) Asthma Anxiety High cholesterol OA (osteoarthritis) Mucoepidermoid carcinoma Depression Thyroid nodule Diabetes mellitus Rheumatoid arthritis Gout Arthritis Allergies Surgical History History of back surgery Hx of repair of right rotator cuff Hx of partial thyroidectomy Family History Mother HTN (hypertension) Social History Housing: House Are you a primary early breastfeeding care specialist to a significant other at home: No Do you presently have visiting nurse or other home services: No Alcohol intake: current Alcohol intake frequency: holidays/special occasions only Patient Tobacco Use Status: Former Tobacco user Cigarette Packs Per Day: 1 Years Smoked: 25, quit 2004, started around age 17, 2PPD e-Cigarette/Vaping Use: Never Used Second Hand Smoke Exposure: No service: Yes Current occupational status: retired Cognitive needs: No Hearing needs: No Vision needs: No Questionnaire Thrive Questionnaire Date Thrive assessed: 02/27/25 I am a: Patient What is your living situation today?: I have a steady place to live Within the past 12 months, did the food you bought not last and you didn't have the money to get more?: Never true Within the past 12 months, did you worry whether your food would run out before you got money to buy more?: I choose not to answer this question Do you have trouble paying for medicines?: I choose not to answer this question Do you have trouble getting transportation to medical appointments?: I choose not to answer this question Do you have trouble paying your heating and electricity bill?: No Do you have trouble taking care of your child, family member or friend?: No Do you have trouble with day-to-day activities such as bathing, preparing meals, shopping, managing finances, etc.?: No Are you currently unemployed and looking for a job?: No THRIVE Score: 0 TIMO-7 AMB Questionnaire TIMO-7 Date TIMO - 7 assessed: 07/05/24 Source: Developed by Byron Floreset [employer], Mau Morales and colleagues, with an educational cl from [employer]. Physical exam (Primary Care) Vital Signs: Last Vital Signs Temp 97.6 F 10/16/25 14:34 Pulse 81 10/16/25 14:34 Resp 16 10/16/25 14:34 BP 148/68 H 10/16/25 15:01 Pulse Ox 98 10/16/25 14:34 Oxygen Delivery Method Room Air 10/16/25 14:34 BMI result Body Mass Index 32.4 Tobacco/Smoking Status: Tobacco use Status Tobacco use date assessed 10/16/25 10/16/25 14:37 Patient Tobacco Use Status Former Tobacco user 10/16/25 14:29 e-Cigarette/Vaping Use Never Used 10/16/25 14:29 Thrive Assessment: Date of Thrive Assessment Date Thrive assessed 02/27/25 10/16/25 14:29 Coding Level of Care Code Est Pt Level 4 (97381) Diagnoses History of salivary gland cancer Z85.818 Rheumatoid arthritis involving multiple sites with positive rheumatoid factor M05.79 Rheumatoid arthritis location: multiple sites Rheumatoid factor presence: with rheumatoid factor Primary osteoarthritis involving multiple joints M15.0 Osteoarthritis location: multiple joints Osteoarthritis type: primary Centrilobular emphysema J43.2 COPD type: emphysema Emphysema type: centrilobular Primary hypertension I10 Hypertension type: primary hypertension Assessment & Plan Assessment & Plan (1) History of salivary gland cancer: Comment: removed salivary gland--2017 Code(s): Z85.818 - Personal history of malignant neoplasm of other sites of lip, oral cavity, and pharynx Category: Medical (2) Rheumatoid arthritis: Code(s): M06.9 - Rheumatoid arthritis, unspecified Category: Medical Qualifiers: Rheumatoid arthritis location: multiple sites Rheumatoid factor presence: with rheumatoid factor Qualified Code(s): M05.79 - Rheumatoid arthritis with rheumatoid factor of multiple sites without organ or systems involvement (3) OA (osteoarthritis): Code(s): M19.90 - Unspecified osteoarthritis, unspecified site Category: Medical Qualifiers: Osteoarthritis location: multiple joints Osteoarthritis type: primary Qualified Code(s): M15.0 - Primary generalized (osteo)arthritis (4) COPD (chronic obstructive pulmonary disease): Code(s): J44.9 - Chronic obstructive pulmonary disease, unspecified Category: Medical Qualifiers: COPD type: emphysema Emphysema type: centrilobular Qualified Code(s): J43.2 - Centrilobular emphysema (5) Hypertension: Code(s): I10 - Essential (primary) hypertension Category: Medical Qualifiers: Hypertension type: primary hypertension Qualified Code(s): I10 - Essential (primary) hypertension Plan 70 year old female presenting for follow up History of salivary tumor, recent salivary stones, ongoing intermittent swelling-referral pending ENT Increase back pain, cyst, potentially infected-start doxycycline. us ordered Increase back pain, OA/RA, start long acting oxycodone, minimize increasing short acting meds DM/prediabetes-stable Non compliant with preventive testing including mammogram, colonoscopy Orders: Orders US soft tissue chest 10/16/25 R22.2 - Localized swelling, mass and lump, trunk Medications: New oxycodone ER (OxyContin) Partial Fill upon patient request. 15 mg PO BID 56 tabs 0RF naloxone 4 mg/actuation (Narcan) spray 1 dose into ONE nostril; alternate nostrils w each dose until help arrives 4 mg intranasal Q2M 2 ea 0RF opioid overdose Refilled oxycodone Partial fill upon patient request 10 mg PO Q4H PRN 168 tabs 0RF pain G89.29 - Other chronic pain, M05.79 - Rheumatoid arthritis with rheumatoid factor of multiple sites without organ or systems involvement, M54.9 - Dorsalgia, unspecified Discontinued doxycycline monohydrate tolerates doxycycline Discontinued Reason: Doctor's Order 100 mg PO BID 14 caps 0RF
[2025-10-16 14:34] VITALS: BP 156/100; PULSE 81; RESP 16; TEMP 36.4; O2SAT 98; BMI 32.4
[2025-10-16 15:01] VITALS: BP 148/68
--- OUTSIDE RECORDS SUMMARY | 2025-10-16 16:45 | XMS_ITS | Patient Health Record ---
Author Organization [facility] Address [address] [place] [address] Care Team Providers Care Software Product Manager Name Role Phone FROILAN MEDINA md Primary Care Provider UnavailCUCO Sharp Unavailable [phone] FROILAN PURCELL MD Unavailable Unavailable Allergies Allergen (clinical drug ingredient) Drug/Non Drug Allergy documented on EMR Reaction Allergy Type Onset Date Status allopurinol Allopurinol rash Drug Allergy Act vitor amoxicillin / clavulanate Augmentin Unknown Drug Allergy Active ciprofloxacin / hydrocortisone Cipro HC Unknown Drug Allergy Active clarithromycin Clarithromycin Unknown Drug Allergy Active venlafaxine Effexor XR Unknown Drug Allergy Acti ve erythromycin Erythromycin Unknown Drug Allergy A ctive sulfadiazine sulfADIAZINE Unknown Drug Allergy A ctive morphine Morphine Unknown Drug Allergy Active Penicillin Unknown Drug Allergy Active tetracycline Tetracycline Unknown Drug Allergy A ctive tramadol traMADol Unknown Drug Allergy Active Reason For Referral No Information Medications Medication SIG (Take, Route, Frequency, Duration) Notes Start Date End Date Status Klor-Con M20 20 MEQ Tablet Extended Release 1 tab(s) orally 3 times a day; Duration: 90 days 04/25/2021 Active Vitamin D3 50 MCG (2000 UT) Tablet 1 tablet orally once a day Active Ferrous Sulfate 325 (65 Fe) MG Tablet 1 tab(s) orally 4 days a week Active Omeprazole 40 MG Capsule Delayed Release 1 cap(s) orally twice a day; Duration: 90 days 03/15/2021 Active Nadolol 80 MG Tablet 1 tab(s) orally once a day; Duration: 90 days Active DULoxetine HCl 60 MG Capsule Delayed Release Particles 1 cap(s) orally once a day; Duration: 90 days Active ALPRAZolam 1 MG Tablet 1 tab(s) orally every 8 hours prn Active dilTIAZem HCl ER 180 MG Capsule Extended Release 24 Hour 1 cap(s) orally once a day; Duration: 90 days Active Aspirin 81 MG Tablet Delayed Release 1 tab(s) orally once a day; Duration: 30 day(s) Active Levothyroxine Sodium 25 MCG Tablet 1 tab(s) orally once a day; Duration: 90 days Active metOLazone 2.5 MG Tablet 1 tab(s) orally once a day Active Amitriptyline HCl 25 MG Tablet 1 tab(s) orally at bedtime; Duration: 90 day(s) 06/06/2021 Active Flonase Allergy Relief 50 MCG/ACT Suspension 2 spray(s) in each nostril once a day; Duration: 90 days Active Febuxostat 40 MG Tablet 1 tablet Orally Once a day; Duration: 90 days 07/25/2022 Active Zoloft 25 MG Tablet 1 tab(s) orally once a day; Duration: 90 day(s) 05/13/2021 Active Tylenol 8 Hour 650 MG Tablet Extended Release 2 tab(s) orally every 8 hours 1 tab in the AM, 2 tabs at Noon, 1 tab at bedtime Active Magnesium 400 MG Tablet 1 tablet with a meal Orally once a day Active Leflunomide 20 MG Tablet 1 tablet Orally Once a day; Duration: 90 days 07/25/2022 Active oxyCODONE HCl 10 MG Tablet 1 tab(s) orally every 4 hours prn pain 10/23/2021 Active Social History Tobacco Use: Social History Observation Description Date Details (start date - stop date) Former Smoker NA - 03/02/2005 Social History Tobacco Use: Social Info Question Answer Notes Smoking Are you a: former smoker When did you stop Smoking ? 03/02/2005 Additional Details Category Social Info Options Details General Occupation: disabled asbestos exposure: no Past year's travels: None alcohol use: yes 1-2 year drug use: no Hobbies/Exercise habits: n/a Coffee/Tea/Soda: yes 3-4 cups of cof fee a week, iced tea in summer, 2-3 cans of soda a day Marital Status - Rigoberto Alvarez sed 12/2020 experience no Living with Son- Davy. 1 d og Pets dog smokers in household no Quit 2004- 1-2 pack a day for 30years Problems Problem Type SNOMED Code ICD Code Onset Dates Problem Status W/U Status Risk Notes Problem Medication monitoring (886123431) Medication monitoring encounter (Z51.81) Active confirmed Problem Thyroid nodule (415769234) Thyroid nodule (E04.1) Active confirmed Problem Grief (718238817) Grief (F43.21) Active confirm ed Problem Adhesive capsulitis of right shoulder (535610029483533) Adhesive capsulitis of right shoulder (M75.01) Active confirmed Problem Inflammatory arthritis (6851645) Inflammatory arthritis (M19.90) Active confirmed Problem Chronic gouty arthritis (08835433) 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32) Active confirmed Problem Degeneration of intervertebral disc (97423577) Multilevel degenerative disc disease (M53.9) Active confirmed Problem Essential hypertension (99406075) Hypertension, unspecified type (I10) Active confirmed Problem Renal cyst (216912181) Bilateral renal cysts (N28.1) Active confirmed Problem Low back pain (finding) (150507453) Low back pain, unspecified back pain laterality, unspecified chronicity, unspecified whether sciatica present (M54.5) Active confirmed Problem Primary osteoarthritis (397374931) Primary osteoarthritis involving multiple joints (M89.49) Active confirmed Problem Type 2 diabetes mellitus with other specified complication, unspecified whether penitentiary insulin use (E11.69) Active confirmed Problem 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 METABOLIC 08/13/2021 TSH WITH REFLEX TO FT4 08/13/2021 Insurance Providers Payer Name Payer Address Payer Phone Subscriber Number Group Number Insured Name Patient Relationship to Insured Coverage Start Date Coverage End Date [employer]ICARE [employer] [address] [place] [address] [id number] SANCTUAR MANUEL Davis Self - patient is the insured 9 [address] [address] [place] [address] [phone] [id number] SANCTUAR Y, MANUEL Self - patient is the insured Medications Administered Medication Instructions Date of Administration Dosage Notes Triamcinolone Acetonide, mul ti-dose vial, 06/25/2022 80 mg Medical (General) History Medical History History ICD Code Allergies Arthitis Gout 08/06/2015 Headaches Hypertension Thyroid nodule 04/14/2017 Ric Renal Cysyts 09/30/2019 Diabetes Mellitus 09/30/2019 Mucoepidermoid Carcinoma 06/09/2018 Anxiety and Depression Warthin's Tumor 03/09/2018 Chronic Diastolic CHF 09/12/2015 Osteoarthritis 08/26/2016 Abnormal Stress Test 07/18/2015 High Cholesterol Low Back Pain- Surgery x5 Dr. Rapp Degenerative Joint Disease Muliple Drug Allergies Allergy to Adhesive Tape, pinapple Iron Deficiency Anemia 52 pack year tobacco-she quit in 2004 Surgical History Surgery Date(Month/Year) right houlder surgery 10/14/22 Upper Outer Left Breast Lumpectomy Removal of Partoid Gland/Tumor- Dr. John real 05/07/2018 [place] Teeth Tubal Ligation Salvatory Gland removal- cancer Back Surgery x5- Dr. Rapp Partial Right Thyroidectomy 05/27/2017 Hospitalization History Reason Date(Month/Year) Childbirth x3
--- OUTSIDE RECORDS SUMMARY | 2025-10-16 16:45 | XMS_ITS | Clinical Summary ---
Author Organization [facility] Address [address] [address] Phone Care Team Providers Care Toaster Element Repairer Name Role Phone Aditi Sands MD Primary Care Provider [phone] Allergies Active Allergy Reactions Criticality Noted Date [...] EDT) SODIUM 138 133 - 146 mmol/L [facility] POTASSIUM 4.7 3.3 - 5.1 mmol/L [facility] CHLORIDE 100 96 - 108 mmol/L [facility] CO2 27 21 - 35 mmol/L [facility] BUN 24(H) 6 - 19 mg/dL [facility] CREATININE 1.10 0.5 - 1.5 mg/dL [facility] GLUCOSE 114(H) 70 - 99 mg/dL [facility] ALBUMIN 4.0 3.9 - 4.8 g/dL [facility] TOTAL PROTEIN 7.7 6.5 - 8.0 g/dL [facility] CALCIUM 9.7 8.4 - 10.3 mg/dL [facility] ALKALINE PHOSPHATASE 70 39 - 117 U/L [facility] TOTAL BILIRUBIN 0.5 0.0 - 1.2 mg/dL [facility] AST 41(H) 0 - 37 U/L [facility] ALT 23 0 - 40 U/L [facility] GLOBULIN 3.7 1 - 4.8 g/dL [facility] EGFR 54(L) >59 mL/min/1.7 3m2 [facility] Comment:Estimated glomerular filtration rate calculated using the CKD-EPI refit equation. ANION GAP 16 10 - 20 mmol/L [facility] Blood 05/19/2024 2:14 PM EDT 05/19/2024 2:20 PM EDT us Jimmy Lopez MD LAB BLOOD BKR ORDERABLE S Final Result [address] [address] from Last 3 Months or Most Recently Relevant to Health Maintenance Insurance MEDICARE PART A & B [facility] [place] [address] MEDICARE PART A & B [facility] [place] [address] MEDICARE PART A & [place] [address] MEDICARE PART A & B [facility] [place] [address] MEDICARE PART A & B [facility] [place] [address] MEDICARE PART A [place] [address] Care Teams Toaster Element Repairer Relationship Specialty Start Date End Date Aditi Sands MD PCP - General Internal Medicine 11/18/23 Additional Source Comments The information contained in this document represents components of the legal health record. It is not the complete legal health record.[facility]
--- OUTSIDE RECORDS SUMMARY | 2025-10-16 16:45 | XMS_ITS | Clinical Summary ---
Author Organization [facility] Address [address] [place] [address] Care Team Providers Care Provider Scribe Name Role Phone Aditi Nguyen MD Primary Care Provider [phone] Surgical History Surgery Date Site/Laterality Comments BACK [...] benign OTHER SURGICAL HISTORY 05/07/2018 Right PROCEDURE: [place] EXC PRTD JOVITA/PRTD GLND LAT LOBE W/O [...] Chronic diastolic CHF (conge stive heart failure) ([facility] V24, [facility] V28) 09/12/2015 DX:Chronic diastol ic CHF (congestive heart failure) ([facility]) Osteoarthritis 08/26/2016 DX:Osteoarthriti s Family History [...] Used Date Smoking Tobacco: Former Cigarettes 1.5 20.7 S tarted: 01/29/2005 Smokeless Tobacco: Never Alcohol Use Standard Drinks/Week Comments No 0 (1 standard drink = 0.6 oz pur e alcohol) Comments Unknown Sex and Gender Information Value Date Recorded Sex Assigned at Not on file Legal Sex Female 5:38 AM EST Gender Identity Not on file Sexual Orientation Not on file Plan of Treatment Health Maintenance Due Date [...] age to complete this topic Care Teams Provider Scribe Relationship Specialty Start Date End Date Aditi Nguyen MD PCP - General Internal Medicine 08/19/15
== END 2025-10-16 15:06 | disposition home or self-care (01) ==
LOC: HO.HMCFM 14:25
PROVIDERS: PCP Internal Medicine; Visit Provider Internal Medicine
DX: Z85.818 Personal history of malignant neoplasm of other sites of lip, oral cavity, and pharynx (principal); M05.79 Rheumatoid arthritis with rheumatoid factor of multiple sites without organ or systems involvement; M15.0 Primary generalized (osteo)arthritis; J43.2 Centrilobular emphysema; I10 Essential (primary) hypertension

== ENCOUNTER → 2025-10-16 14:24 | Outpatient (BNVA) | payer MEDICARE, OTHER, SELFPAY | PROVIDERS: PCP Internal Medicine; Visit Provider Internal Medicine | DX: M05.79 Rheumatoid arthritis with rheumatoid factor of multiple sites without organ or systems involvement (principal); M15.0 Primary generalized (osteo)arthritis; J43.2 Centrilobular emphysema; I10 Essential (primary) hypertension; Z85.818 Personal history of malignant neoplasm of other sites of lip, oral cavity, and pharynx | CPT/HCPCS: 99212 ==